=== PATIENT | male | born 1980 | race Caucasian/White ===

== ENCOUNTER 2019-12-30 17:13 | Inpatient (IN) | payer BC, OTHER ==
[2019-12-30] MEDS ORDERED: SODIUM CHLORIDE 0.9% 500 ML 500 ML IV STA (17:34)
[2019-12-30 18:03] LABS: Basophils % (A) 0 %; Eosinophils # (A) 0.1 k/uL (0-0.7); Eosinophils % (A) 1 %; HCT 45.9 % (39.0-53.0); HGB 15.3 gm/dL (13.0-17.5); Lymphocytes # (A) 1.3 k/uL (1.0-4.8); Lymphocytes % (A) 8 %; MCH 30.1 pg (25.0-35.0); MCHC 33.4 g/dL (31.0-37.0); MCV 90.1 fL (80.0-100.0); Mean Platelet Volume 6.6; Monocytes # (A) 0.6 k/uL (0-1.0); Monocytes % (A) 4 %; Neutrophils # (A) 14.3 k/uL (1.3-7.7); Neutrophils % (A) 87 %; Platelet Count 321 k/uL (150-450); RBC 5.09 m/uL (4.30-5.90); RDW 12.5 % (11.5-15.5); WBC 16.4 k/uL (3.8-10.6)
--- NOTE | 2019-12-30 18:10 | XR ---
EXAMINATION TYPE: XR KUB DATE OF EXAM: 12/30/2019 COMPARISON: NONE HISTORY: Abdominal pain TECHNIQUE: 2 views FINDINGS: 2 views upright were obtained. There are some large bowel fluid levels. There is no evidenc e of free air. Lung bases are clear. There are no pathologic calcifications over the kidneys. IMPRESSION: There are some large bowel fluid levels that could relate to diarrhea. No free air.
[2019-12-30 18:12] LABS: ALT 29 U/L (4-49); AST 29 U/L (17-59); African American GFR (CKD) >90 (>60 ml/min/1.73 sqM); Albumin 4.7 g/dL (3.5-5.0); Alkaline Phosphatase 98 U/L (38-126); Anion Gap 9 mmol/L; Blood Urea Nitrogen 15 mg/dL (9-20); Calcium 9.9 mg/dL (8.4-10.2); Carbon Dioxide 27 mmol/L (22-30); Chloride 104 mmol/L (98-107); Glucose 112 mg/dL (74-99); Non-African American GFR(CKD) >90 (>60 ml/min/1.73 sqM); Potassium 4.1 mmol/L (3.5-5.1); Sodium 140 mmol/L (137-145); Total Bilirubin 0.5 mg/dL (0.2-1.3); Total Protein 7.5 g/dL (6.3-8.2)
[2019-12-30 18:36] LABS: Amorphous Sediment,Urine Few /hpf; Appearance,Urine Cloudy (Clear); Bacteria,Urine Rare /hpf; Bilirubin,Urine Negative (Negative); Blood,Urine Trace (Negative); Color,Urine Yellow; Glucose,Urine (UA) Negative (Negative); Hyaline Casts,Urine 2 /lpf (0-2); Ketones,Urine 3+ (Negative); Leukocyte Esterase,Urine Trace (Negative); Mucus,Urine Many /hpf; Nitrite,Urine Negative (Negative); PH, Urine 5.5 (5.0-8.0); Protein,Urine 1+ (Negative); RBC,Urine 1 /hpf (0-5); Specific Gravity,Urine 1.037 (1.001-1.035); WBC,Urine 4 /hpf (0-5)
[2019-12-30] MEDS ORDERED: SODIUM CHLORIDE 0.9% 500 ML 500 ML IV ONE (18:53)
--- NOTE | 2019-12-30 18:55 | ED ---
General Adult HPI - General Chief complaint: Abdominal Pain Stated complaint: Abdominal pain Time Seen by Provider: 12/30/19 17:23 Source: patient, RN notes reviewed, old records reviewed Mode of arrival: ambulatory Limitations: no limitations - History of Present Illness Initial comments: 39-year-old male patient past history diverticulitis previously chief complaint of abdominal pain. Patient was is having pain in his left lower quadrant and right lower quadrant regions. Reports this feels similar to diabetic that is the past. States has been ongoing for the last couple of days. Reports nausea without emesis. Denies any other complaints. Systemic: Pt denies fatigue, fever/chills, rash. Pt denies weakness, night sweats, weight loss. Neuro: Pt denies headache, visual disturbances, syncope or pre-syncope. HEENT: Pt denies ocular discharge or irritation, otalgia, rhinorrhea, pharyngitis or notable lymphadenopathy. Cardiopulmonary: Pt denies chest pain, SOB, heart palpitations, dyspnea on exertion. Abdominal/GI: Pt denies n/v/d. : Pt denies dysuria, burning w/ urination, frequency/urgency. Denies new onset urinary or bowel incontinence. MSK: Pt denies myalgia, loss of strength or function in extremities. Neuro: Pt denies new onset weakness, paresthesias. - Related Data Home Medications Medication Instructions Recorded Confirmed Albuterol Sulfate [Ventolin HFA] 1 - 2 puff INHALATION RT-QID PRN 12/30/19 12/30/19 Allergies Allergy/AdvReac Type Severity Reaction Status Date / Time Penicillins Allergy Unknown Verified 12/30/19 20:21 Childhood Review of Systems ROS Statement: Those systems with pertinent positive or pertinent negative responses have been documented in the HPI. ROS Other: All systems not noted in ROS Statement are negative. Past Medical History Past Medical History: Asthma Additional Past Medical History / Comment(s): diverticulitis History of Any Multi-Drug Resistant Organisms: None Reported Past Surgical History: No Surgical Hx Reported Past Psychological History: No Psychological Hx Reported Smoking Status: Current every day smoker Past Alcohol Use History: None Reported Past Drug Use History: None Reported General Exam - General Exam Comments Initial Comments: Constitutional: NAD, AOX3, Pt has pleasant affect. HEENT: NC/AT, trachea midline, neck supple. External ears appear normal, without discharge. Mucous membranes moist. EOM intact. There is no scleral icterus. No pallor noted. Cardiopulmonary: RRR, no murmurs, rubs or gallops, no JVD noted. Lungs CTAB in anterior and posterior morris. No peripheral edema. Abdominal exam: Abdomen soft and mildly distended. Abdomen nontender to palpation left lower quadrant right lower quadrant region.. Bowel sounds active in LLQ. No hepatosplenomegaly. No ecchymosis Neuro: CN II-XII grossly intact. No nuchal rigidity. No raccon eyes, no larry sign. MSK: Full active ROM in upper and lower extremities Limitations: no limitations Course Vital Signs 12/30/19 17:16 Temperature 99.0 F Pulse Rate 105 H Respiratory 16 Rate Blood Pressure 150/90 O2 Sat by Pulse 99 Oximetry Medical Decision Making - Medical Decision Making 39-year-old male patient with a chief complaint of abdominal pain and right lower quadrant and left lower quadrant for the last 4 days. Patient also and are stable, afebrile. Physical exam a leukocytosis of 16. UA displayed +3 keto wilma patient reports that he has not been eating very much is suspect starvation ketosis. ED abdomen pelvis later mildly dilated large bowel. Possible constricting lesion of the sigmoid colon. She'll be admitted for further evaluation and GI consult. Case discussed with Dr. Echavarria. - Lab Data Result diagrams: 12/30/19 17:51 12/30/19 17:51 Lab Results 12/30/19 12/30/19 12/30/19 Range/Units 17:51 17:51 17:51 WBC 16.4 H (3.8-10.6) k/uL RBC 5.09 (4.30-5.90) m/uL Hgb 15.3 (13.0-17.5) gm/dL Hct 45.9 (39.0-53.0) % MCV 90.1 (80.0-100.0) fL MCH 30.1 (25.0-35.0) pg MCHC 33.4 (31.0-37.0) g/dL RDW 12.5 (11.5-15.5) % Plt Count 321 (150-450) k/uL Neutrophils % 87 % Lymphocytes % 8 % Monocytes % 4 % Eosinophils % 1 % Basophils % 0 % Neutrophils # 14.3 H (1.3-7.7) k/uL Lymphocytes # 1.3 (1.0-4.8) k/uL Monocytes # 0.6 (0-1.0) k/uL Eosinophils # 0.1 (0-0.7) k/uL Basophils # 0.0 (0-0.2) k/uL Sodium 140 (137-145) mmol/L Potassium 4.1 (3.5-5.1) mmol/L Chloride 104 (98-107) mmol/L Carbon Dioxide 27 (22-30) mmol/L Anion Gap 9 mmol/L BUN 15 (9-20) mg/dL Creatinine 0.88 (0.66-1.25) mg/dL Est GFR (CKD-EPI)AfAm >90 (>60 ml/min/1.73 sqM) Est GFR (CKD-EPI)NonAf >90 (>60 ml/min/1.73 sqM) Glucose 112 H (74-99) mg/dL Plasma Lactic Acid Dipesh 1.1 (0.7-2.0) mmol/L Calcium 9.9 (8.4-10.2) mg/dL Total Bilirubin 0.5 (0.2-1.3) mg/dL AST 29 (17-59) U/L ALT 29 (4-49) U/L Alkaline Phosphatase 98 (38-126) U/L Total Protein 7.5 (6.3-8.2) g/dL Albumin 4.7 (3.5-5.0) g/dL Lipase 38 (23-300) U/L Urine Color Urine Appearance (Clear) Urine pH (5.0-8.0) Ur Specific [place] (1.001-1.035) Urine Protein (Negative) Urine Glucose (UA) (Negative) Urine Ketones (Negative) Urine Blood (Negative) Urine Nitrite (Negative) Urine Bilirubin (Negative) Urine Urobilinogen (<2.0) mg/dL Ur Leukocyte Esterase (Negative) Urine RBC (0-5) /hpf Urine WBC (0-5) /hpf Amorphous Sediment (None) /hpf Urine Bacteria (None) /hpf Hyaline Casts (0-2) /lpf Urine Mucus (None) /hpf 12/30/19 Range/Units 18:27 WBC (3.8-10.6) k/uL RBC (4.30-5.90) m/uL Hgb (13.0-17.5) gm/dL Hct (39.0-53.0) % MCV (80.0-100.0) fL MCH (25.0-35.0) pg MCHC (31.0-37.0) g/dL RDW (11.5-15.5) % Plt Count (150-450) k/uL Neutrophils % % Lymphocytes % % Monocytes % % Eosinophils % % Basophils % % Neutrophils # (1.3-7.7) k/uL Lymphocytes # (1.0-4.8) k/uL Monocytes # (0-1.0) k/uL Eosinophils # (0-0.7) k/uL Basophils # (0-0.2) k/uL Sodium (137-145) mmol/L Potassium (3.5-5.1) mmol/L Chloride (98-107) mmol/L Carbon Dioxide (22-30) mmol/L Anion Gap mmol/L BUN (9-20) mg/dL Creatinine (0.66-1.25) mg/dL Est GFR (CKD-EPI)AfAm (>60 ml/min/1.73 sqM) Est GFR (CKD-EPI)NonAf (>60 ml/min/1.73 sqM) Glucose (74-99) mg/dL Plasma Lactic Acid Dipesh (0.7-2.0) mmol/L Calcium (8.4-10.2) mg/dL Total Bilirubin (0.2-1.3) mg/dL AST (17-59) U/L ALT (4-49) U/L Alkaline Phosphatase (38-126) U/L Total Protein (6.3-8.2) g/dL Albumin (3.5-5.0) g/dL Lipase (23-300) U/L Urine Color Yellow Urine Appearance Cloudy (Clear) Urine pH 5.5 (5.0-8.0) Ur Specific [place] 1.037 H (1.001-1.035) Urine Protein 1+ H (Negative) Urine Glucose (UA) Negative (Negative) Urine Ketones 3+ H (Negative) Urine Blood Trace H (Negative) Urine Nitrite Negative (Negative) Urine Bilirubin Negative (Negative) Urine Urobilinogen 3.0 (<2.0) mg/dL Ur Leukocyte Esterase Trace H (Negative) Urine RBC 1 (0-5) /hpf Urine WBC 4 (0-5) /hpf Amorphous Sediment Few H (None) /hpf Urine Bacteria Rare H (None) /hpf Hyaline Casts 2 (0-2) /lpf Urine Mucus Many H (None) /hpf Disposition Clinical Impression: Abdominal pain Disposition: ADMITTED IP TO THIS HOSP Condition: Fair Is patient prescribed a controlled substance at d/c from ED?: No Referrals: None,Stated [Primary Care Provider] - 1-2 days
--- NOTE | 2019-12-30 19:24 | CT ---
EXAMINATION TYPE: CT abdomen pelvis w con DATE OF EXAM: 12/30/2019 COMPARISON: None HISTORY: Abdominal pain and distention CT DLP: 1968.4 mGycm Automated exposure control for dose reduction was used. CONTRAST: Performed with IV Contrast, patient injected with 100 mL of Isovue 300. Lung bases are clear. There is no pleural effusion. Heart size is normal. There is some mild fatty infiltration of the liver. Gallbladder appears normal. Spleen and stomach ap pear intact. The pancreas appears normal. There is no adrenal mass. Kidneys show satisfactory contras t opacification. There is no hydronephrosis. Ureters are not dilated. There is no retroperitoneal lesli nopathy. There is broad-based fat-containing umbilical hernia that measures 3 cm. Appendix is posteri or and appears normal. The bladder distends smoothly. There is no inguinal hernia. There is no free f luid in the pelvis. There is some distention of the large bowel with gas and fecal material. There is some luminal narrowing in the mid sigmoid colon. It is not clear if this is peristalsis are related to a stricture or mass. This segment measures 5 cm. The large bowel proximal to this area is distende d with gas and fecal material. The small bowel is not dilated. Lumbar vertebra have normal alignment. Disc spaces are fairly normal. Posterior elements are intact. Bony pelvis is intact. IMPRESSION: Mildly dilated large bowel. Possible constricting lesion of the mid sigmoid colon. Sigmoidoscopy or c olonoscopy or barium enema exam recommended for further evaluation if clinically indicated. Umbilical hernia.
[2019-12-30] MEDS ORDERED: NALOXONE 0.4 MG/ML 1 ML VIAL IV PRN (20:38)
[2019-12-30 22:48] LABS: T4, Free (Free Thyroxine) 1.39 ng/dL (0.78-2.19)
[2019-12-30] MEDS ORDERED: IBUPROFEN 600 MG TAB PO PRN (23:01)
[2019-12-30] MEDS: ONDANSETRON 4 MG/2 ML VIAL IVP PRN (23:25)
--- NOTE | 2019-12-30 23:58 | HP ---
HISTORY AND PHYSICAL A 39-year-old white male with history of diverticulitis, complaining of abdominal pain, having pain in his left lower quadrant and right lower quadrant regions similar to he has had in the past with his diverticulosis except for the last couple days, reports nausea without emesis. Denies any fatigue, rashes, chills, COVID exposure. Fourteen- point review of systems otherwise negative. MEDICATIONS: Medicines at home include albuterol HFA. ALLERGIES: PENICILLIN. REVIEW OF SYSTEMS: Fourteen-point review of systems negative except for mentioned in HPI. PAST MEDICAL HISTORY: Asthma, diverticulitis. SOCIAL HISTORY: Current everyday smoker. No alcohol. No drugs. PHYSICAL EXAMINATION: VITAL SIGNS: Reviewed. CONSTITUTIONAL: In no acute distress. HEENT: Normocephalic, atraumatic. CARDIAC: Regular rate and rhythm. ABDOMEN: Soft, nontender. NEURO: Cranial nerves intact. MUSCULOSKELETAL: Range of motion full. VITAL SIGNS: Temperature 99, pulse rate 105, respiratory rate 16, blood pressure 150/90, O2 of 99. White count 16.4, unclear etiology. UA is 3+ ketones. Starvation ketosis likely. Mildly dilated large bowel constricting area of the sigmoid colon. GI consult possible surgical consult. MMODL / IJN: [id number] /
[2019-12-31] MEDS: ACETAMINOPHEN TAB 500 MG TAB PO PRN ×2 (08:19→22:42)
[2019-12-31] MEDS: ONDANSETRON 4 MG/2 ML VIAL IVP PRN ×2 (08:20→21:47)
[2019-12-31] MEDS: ALBUTEROL NEBULIZED 2.5 MG/3 ML INHALATION PRN ×2 (09:43→21:17)
[2019-12-31] MEDS ORDERED: PEG 3350-NA SULF,BICARB,CL/KCL 4,000 ML BOTTLE PO ONE (17:00)
--- NOTE | 2019-12-31 18:39 | CONS ---
CONSULTATION DATE OF DICTATION: 12/31/2019 REASON FOR CONSULTATION: Severe abdominal pain and constipation. HISTORY OF PRESENT ILLNESS: The patient is a 39-year-old pleasant white male who was admitted to the hospital with severe lower abdominal pain for the last 10 days' duration. The pain continued to progressively get worse, associated with some constipation, and he noted some abdominal distention. He denies any fever, chills or night sweats. He took a bottle of magnesium citrate last night before coming to the ER and he had several bowel movements this morning. In the ER, he did have a CT of the abdomen and pelvis done that showed some thickening in the sigmoid colon extending about 5 cm in length with mildly dilated large bowel loops suspicious for constricting lesion in the sigmoid colon, and hence a colonoscopy was recommended. The patient today is feeling much better after having about 4 bowel movements. His abdominal pain has improved. No nausea, no vomiting. No fever, chills, night sweats. He never had these symptoms in the past. He denies any rectal bleeding. PAST MEDICAL HISTORY: His past medical history is significant for asthma. MEDICATIONS AT HOME: Albuterol. ALLERGIES: PENICILLIN. SOCIAL HISTORY: Chronic smoker. No alcohol use. FAMILY HISTORY: Unremarkable. REVIEW OF SYSTEMS: CARDIOPULMONARY: No chest pain or shortness of breath. GENITOURINARY: No dysuria or hematuria. MUSCULOSKELETAL: Unremarkable. SKIN: Unremarkable. ENDOCRINE: Unremarkable. PSYCHIATRIC: Unremarkable. GI: As mentioned above. NEUROLOGY: Unremarkable. ENT/VISION: Unremarkable. CONSTITUTIONAL: No recent weight loss. No fever, chills, night sweats. PHYSICAL EXAMINATION: Appears comfortable. No apparent distress. Vital signs are stable. Blood pressure is 138/82, pulse rate 92, temperature 98.2. HEENT examination unremarkable. Conjunctivae pink. Sclerae anicteric. Oral cavity no lesions. NECK: No JVD or lymph node enlargement. CHEST: Clear to auscultation. HEART: Regular rate and rhythm. ABDOMEN: Soft. Bowel sounds are positive. It was slightly distended. Minimal tenderness in the left lower quadrant area. EXTREMITIES: No pedal edema. SKIN: No rashes. NEUROLOGIC: Alert and oriented x3. No focal deficits. LABS: WBC 16.4, hemoglobin 15.3, platelets normal. Basic metabolic panel is within normal limits. IMPRESSION: This is a patient who presented to the hospital with acute onset of lower abdominal pain for the last one week duration associated with constipation and abdominal distention. He took a bottle of magnesium citrate yesterday, and he is feeling much better after having several bowel movements. CT of the abdomen and pelvis did show some thickening of the sigmoid colon, and possibility of constricting lesion could not be excluded. RECOMMENDATIONS: 1. Clear liquid diet. 2. Will schedule the patient for a colonoscopy tomorrow. 3. Discussed with him risks, benefits and complications of the procedure, and he is agreeable to it. Thank you for this consultation. MMODL / IJN: [id number] /
--- NOTE | 2019-12-31 23:15 | PN ---
PROGRESS NOTE A 39-year-old white male found to have a stricture on a CAT scan of the abdomen. He was severely constipated, but he has had more bowel movement with less abdominal pain and swelling since his bowels have been moving today. His abdominal distention is a little bit less. CARDIOVASCULAR: S1, S2. GI: Soft. HEMATOLOGY: Negative Homans. He is going to get a colonoscopy tomorrow. Clear liquid diet. A bottle mag citrate yesterday, is feeling much better with bowel movements. We going to rule out a constriction lesion with a colonoscopy tomorrow then he can be discharged home. MMODL / IJN: [id number] /
[2020-01-01 06:13] LABS: Basophils % (A) 0 %; Eosinophils % (A) 0 %; HCT 40.1 % (39.0-53.0); HGB 13.2 gm/dL (13.0-17.5); Lymphocytes # (A) 1.4 k/uL (1.0-4.8); Lymphocytes % (A) 12 %; MCH 29.3 pg (25.0-35.0); MCV 88.7 fL (80.0-100.0); Mean Platelet Volume 6.5; Monocytes # (A) 0.7 k/uL (0-1.0); Monocytes % (A) 6 %; Neutrophils # (A) 9.5 k/uL (1.3-7.7); Neutrophils % (A) 81 %; Platelet Count 250 k/uL (150-450); RBC 4.52 m/uL (4.30-5.90); RDW 12.7 % (11.5-15.5); WBC 11.8 k/uL (3.8-10.6)
[2020-01-01 06:23] LABS: ALT 22 U/L (4-49); AST 21 U/L (17-59); African American GFR (CKD) >90 (>60 ml/min/1.73 sqM); Alkaline Phosphatase 91 U/L (38-126); Anion Gap 9 mmol/L; Blood Urea Nitrogen 12 mg/dL (9-20); Calcium 8.9 mg/dL (8.4-10.2); Carbon Dioxide 25 mmol/L (22-30); Chloride 101 mmol/L (98-107); Glucose 116 mg/dL (74-99); Non-African American GFR(CKD) >90 (>60 ml/min/1.73 sqM); Potassium 3.8 mmol/L (3.5-5.1); Sodium 135 mmol/L (137-145); Total Bilirubin 0.5 mg/dL (0.2-1.3); Total Protein 6.4 g/dL (6.3-8.2)
[2020-01-01] MEDS ORDERED: SODIUM CHLORIDE 0.9% 500 ML 500 ML IV ONE (12:19)
[2020-01-01] MEDS ORDERED: PROPOFOL 10 MG/ML 20 ML VIAL IV ONE (12:19)
--- NOTE | 2020-01-01 13:01 | P.PCN ---
Date of Procedure: 01/01/20 Procedure(s) Performed: BRIEF HISTORY: Patient is a 38-year-old pleasant white male admitted hospital with acute onset of lower abdominal pain for the last [address] of abdomen done that showed thickening of the sigmoid colon extending 5 cm in length with proximal colonic dilation suspicious for neoplasm. He is hence scheduled for colonoscopy today. PROCEDURE PERFORMED: Colonoscopy up to the transverse colon with biopsy. PREOPERATIVE DIAGNOSIS:. Lower abdominal pain and abnormal CAT scan of the abdomen showing thickening sigmoid colon of neoplasm. IV sedation per Anesthesia. PROCEDURE: After informed consent was obtained, the patient, was brought into the endoscopy unit. IV sedation was administered by Anesthesia under continuous monitoring. Digital rectal examination was normal. Initially the Olympus CF-160 flexible video colonoscope was then inserted in the rectum, gradually advanced into the transverse colon and further advancement was not possible because of extremely poor prep that was noted throughout the entire colon. Irrigation was performed. The visualized portions of the transverse colon and descending colon appeared normal. There was relative narrowing of the sigmoid colon extending from 25-30 cm from the anal verge with mucosal erythema and thickening of the mucosa but no polyps or masses identified. Biopsies were done from this area. The rectum appeared normal. Retroflexion was performed in the rectum and no lesions were seen. The patient tolerated the procedure well. IMPRESSION: Mild narrowing of the sigmoid colon extending from 25-30 cm from the anal verge with mild mucosal thickening and erythema suspicious for diverticular related colitis. No evidence of neoplasm. Status post biopsies Proximal colon dilation with large amount of stool and the scope could be advanced only up in the transverse colon and terminated because of poor prep RECOMMENDATIONS: Findings of this examination were discussed with the patient as well as his family. He'll be on a clear liquid diet today. He can be advanced as tolerated based on his symptoms. If he feels well can be discharged home today with outpatient follow-up in 2 weeks.
[2020-01-01] MEDS ORDERED: MORPHINE SULFATE 2 MG/ML SYRINGE IVP STA (15:47)
[2020-01-02 00:18] VITALS: RESP 16
--- NOTE | 2020-01-02 02:19 | PN ---
PROGRESS NOTE 39-year-old white male, abdominal pain, possible constriction lesion status post colonoscopy. Supposed to have some diverticulitis-like feeling. Cardiovascular S1-S2. Lungs clear. GI: Increased bowel sounds. Hematology: Negative Homans. ASSESSMENT: Diverticulitis, diverticulosis, stricture, biopsy is pending. Discharge home once diet is advanced. He is doing well. MMODL / IJN: [id number] /
[2020-01-02] MEDS ORDERED: SODIUM CHLORIDE 0.9% 1,000 ML IV SCH (11:30)
[2020-01-02 15:05] VITALS: BP 132/79; PULSE 79; TEMP 98.1
--- NOTE | 2020-01-02 15:06 | P.GSCN ---
History of Present Illness Consult date: 01/02/20 History of present illness: CHIEF COMPLAINT: Diverticulitis HISTORY OF PRESENT ILLNESS: The patient is a 39 year old male who reports at least 1 to 2 year history of diverticulitis. He previously was treated in the ER. He denies any primary care doctors or medical problems. "I am a big foodie!" He reports his diet caused his diverticulitis. He completed colonoscopy confirming sigmoid stricture likely related to diverticulitis. General surgery is consulted. This morning, he is passing flatus and having bowel movements. He reports feeling much better today. He is eager to go home. No reports of weight loss. No reports of fevers or chills. He denies any abdominal pain. PAST MEDICAL HISTORY: See list and reviewed PAST SURGICAL HISTORY: See list and reviewed MEDICATIONS: See list and reviewed ALLERGIES: See list and reviewed SOCIAL HISTORY: See list and reviewed FAMILY HISTORY: See list and reviewed REVIEW OF ORGAN SYSTEMS: CONSTITUTIONAL: No fevers or chills. No recent weight loss. EYES: Denies any trouble with vision. No glasses. HEENT: No difficulties with hearing. No nosebleeds. No difficulty swallowing. RESPIRATORY: Denies pneumonia. History of asthma. CARDIOVASCULAR: Denies any chest pain, palpitations, or recent heart attacks. GASTROINTESTINAL: Denies fatty food intolerance. Has change in bowel habits and gas bloat. GENITOURINARY: Denies any blood in urine or increased urinary frequency. NEUROLOGICAL: Denies any numbness or tingling along the distal extremities. No seizure disorders or headaches. MUSCULOSKELETAL: Denies any back pain, stiffness or joint arthritis. SKIN: No current skin cancer. No rash. PSYCHIATRIC: Denies current depression or suicidal thoughts. ENDOCRINE: Denies current thyroid disorders. Denies any blood sugar glucose intolerance. HEME/LYMPHATIC: Denies any lumps and bumps around the neck. No recent deep venous thrombosis. ALLERGY/IMMUNOLOGY: No immunoglobulin therapy. No immune deficiencies. BREAST: Denies current breast lumps, pain or nipple discharge. PHYSICAL EXAM: VITALS: Reviewed CONSTITUTIONAL: Well developed and in no acute distress. EYES: Conjuctivae without sclera icterus. Pupils are equally round and reactive to light. Extraocular movements grossly intact. HEAD, EARS, NOSE, THROAT: Moist buccal mucosa. Head is atraumatic, normocephalic. Hears conversational speech. No nasal drainage. NECK: Supple. No JV distention. No thyroidomegaly. RESPIRATORY: Non-labored respirations and equal bilateral excursions. No gross wheezes. CARDIOVASCULAR: Regular rate and rhythm. Extremities without moderate edema. Palpable 2+ radial pulses. ABDOMEN: Soft. Protuberant. No peritonitis. Nontender. Mild distention. LYMPH: No neck lymphadenopathy. No axillary lymphadenopathy. MUSCULOSKELETAL: No clubbing. No cyanosis. No edema. SKIN: Warm and well perfused with good skin turgor. NEUROLOGIC: Cranial nerves II through XII grossly intact. Sensation upper and extremities intact. No focal or lateralizing signs. PSYCH: Appropriate affect. Alert and oriented to person, place and time. Displays appropriate insight. CLINCAL LABS: Reviewed. WBC down from 16,000 to over 11,000. IMAGING: Independently reviewed CT of the abdomen and pelvis demonstrated fat- containing umbilical hernia. Large bowel diffusely distended with narrowing along the sigmoid colon. No intra-abdominal adenopathy. No free air. No small bowel distention. Features of sigmoid diverticulosis found. This is my independent interpretation. RADIOLOGY: Report reviewed. CT of the abdomen and pelvis report confirms fat- containing umbilical hernia 3 cm. Large bowel distention with fecal matter. Constricting lesion found in the mid sigmoid colon. REPORT: Colonoscopy reviewed IMPRESSION: Mild narrowing of the sigmoid colon extending from 25-30 cm from the anal verge with mild mucosal thickening and erythema suspicious for diverticular related colitis. No evidence of neoplasm. Status post biopsies Proximal colon dilation with large amount of stool and the scope could be advanced only up in the transverse colon and terminated because of poor prep ASSESSMENT: 1. Abnormal computed tomography scan 2. History of diverticulitis with sigmoid stricture PLAN: 1. No acute surgical intervention. Patient reports he is passing flatus and having bowel movements. He denies pain. 2. Outpatient follow-up with GI as pathology is pending. 3. Dietary changes for diverticulitis reviewed 4. Patient may be discharged once medically stable/cleared. Thank you for this kind consultation. Past Medical History Past Medical History: Asthma Additional Past Medical History / Comment(s): diverticulitis History of Any Multi-Drug Resistant Organisms: None Reported Past Surgical History: No Surgical Hx Reported Past Psychological History: No Psychological Hx Reported Smoking Status: Current every day smoker Past Alcohol Use History: None Reported Past Drug Use History: None Reported - Past Family History Mother Additional Family Medical History / Comment(s): diverticulitis, head injury, Father Family Medical History: No Reported History Medications and Allergies Home Medications Medication Instructions Recorded Confirmed Type Albuterol Sulfate [Ventolin HFA] 1 - 2 puff INHALATION RT-QID PRN 12/30/19 12/30/19 History Acetaminophen Tab [Tylenol] 500 mg PO Q6HR PRN #30 tab 01/02/20 Rx Ondansetron Odt [Zofran Odt] 4 mg PO Q8HR PRN #12 tab 01/02/20 Rx Allergies Allergy/AdvReac Type Severity Reaction Status Date / Time Penicillins Allergy Unknown Verified 12/30/19 20:21 Childhood Surgical - Exam Vital Signs Temp Pulse Resp BP Pulse Ox 99.0 F 105 H 16 150/90 99 12/30/19 17:16 12/30/19 17:16 12/30/19 17:16 12/30/19 17:16 12/30/19 17:16 Results - Labs 01/01/20 05:37 01/01/20 05:37 Assessment and Plan (1) Diverticulitis with obstruction Status: Acute Code(s): K57.92 - DVTRCLI OF INTEST, PART UNSP, W/O PERF OR ABSCESS W/O BLEED SNOMED Code(s): 015676943 (2) Asthma Status: Acute Code(s): J45.909 - UNSPECIFIED ASTHMA, UNCOMPLICATED SNOMED Code(s): 598827173 (3) Obesity (BMI 30.0-34.9) Status: Acute Code(s): E66.9 - OBESITY, UNSPECIFIED SNOMED Code(s): 402597368268586 (4) Abdominal distension Status: Acute Code(s): R14.0 - ABDOMINAL DISTENSION (GASEOUS) SNOMED Code(s): 22410130
--- NOTE | 2020-01-02 17:20 | PN ---
PROGRESS NOTE DATE OF SERVICE: 01/02/2020 The patient is a 39-year-old pleasant white male admitted to hospital with abdominal pain and severe constipation. CT scan showed thickening of the sigmoid colon. He underwent a colonoscopy yesterday that was incomplete up to the transverse colon because of poor prep. However, in the sigmoid colon, there was severe thickening of the mucosa with edema noted with relative narrowing but no obvious neoplasm. The proximal colon appeared significantly distended with large amount of solid and liquid stool and hence colonoscopy could not be completed. In any event, after the colonoscopy the patient developed severe abdominal distention and pain, had an NG tube placed and was kept n.p.o. The patient is feeling much better this morning. He is able to pass air. PHYSICAL EXAMINATION: He appears comfortable. No apparent distress. Vital signs stable. Blood pressure is 132/79, pulse rate 105, temperature 98.1. HEENT examination unremarkable. Conjunctivae pink. Sclerae anicteric. Oral cavity no lesions. NECK: No JVD. No lymph node enlargement. CHEST was clear to auscultation. HEART: Regular rate and rhythm. ABDOMEN is slightly distended. It is tympanic. Bowel sounds are positive. No organomegaly. EXTREMITIES: No pedal edema. SKIN: No rashes. NEUROLOGIC: Alert and oriented x3. No focal deficits. LABS: Done from today, WBC 11.8, hemoglobin 13.2, platelets normal. Basic metabolic panel is within normal limits. IMPRESSION: Sigmoid narrowing/stricture with mucosal thickening, but no evidence of malignancy. Patient developed abdominal distention post colonoscopy because of trapped air status post NG tube placement. He is doing much better today. He is able to pass flatus. RECOMMENDATIONS: 1. D/C NG tube. 2. Start him on clear liquids and advance as tolerated. 3. We will await surgical recommendations from Dr. Lundberg. 4. We will follow with you closely. Thank you for this consultation. MMODL / IJN: [id number] /
--- NOTE | 2020-01-04 10:26 | P.DS ---
Providers Date of admission: 01/02/20 08:34 Expected date of discharge: 01/02/20 Attending physician: Jackson Bal Consults: 12/30/19 20:38 Consult Physician Stat Consulting Provider: Sharron Roblero Consult Reason/Comments: abdominal pain possible lesion Do you want consulting provider notified?: Yes 01/01/20 15:48 Consult Physician Urgent Consulting Provider: Philly Lundberg Consult Reason/Comments: sigmoid narrowing visualized on colonoscopy Do you want consulting provider notified?: Yes Primary care physician: Stated None Hospital Course: Final diagnosis Diverticulitis diverticulosis Possible stricture Abdominal pain Discharge disposition Patient is being discharged in a stable condition with guarded prognosis to home. Patient will follow-up with Dr. roblero upon discharge. Patient also instructed to follow-up with surgery in the outpatient setting. Total time taken is 35 minutes. History of present illness This is an 39-year-old female who was recently admitted with abdominal pain with possible constriction and was being closely monitored. Patient was seen and evaluated by GI along with surgery with attempted colonoscopy showing some mild narrowing of the sigmoid colon and mucosal thickening suspicious for diverticular-related colitis and biopsies were obtained. Poor bowel prep was noted and scope could not be advanced and surgery was consulted. Patient's abdominal pain significantly improved and tolerating clear liquids and surgery evaluated the patient recommending outpatient follow-up within the next 2 weeks. Patient feeling much better and would like to go home. Currently no reports of chest pain, shortness of breath, or palpitations. Patient is afebrile. No reports of nausea or vomiting and patient is tolerating diet. On exam vital signs are stable. Temp is 98.1F, pulse is 79, respirations are 16, blood pressure is 132/79, oxygen saturation is 99% on room air. Cardio S1, S2 are muffled. Respiratory shows diminished breath sounds at the bases with no wheezing or rhonchi noted. Abdomen is soft and nontender. Nervous system shows no focal deficits. Please refer to medication reconciliation sheet for a list of medications. Patient Condition at Discharge: Fair Plan - Discharge Summary Discharge Rx Participant: No New Discharge Prescriptions: New Acetaminophen Tab [Tylenol] 500 mg PO Q6HR PRN #30 tab PRN Reason: Fever And/ Or Pain Ondansetron Odt [Zofran Odt] 4 mg PO Q8HR PRN #12 tab PRN Reason: Nausea Continue Albuterol Sulfate [Ventolin HFA] 1 - 2 puff INHALATION RT-QID PRN PRN Reason: Shortness Of Breath Discharge Medication List Albuterol Sulfate [Ventolin HFA] 1 - 2 puff INHALATION RT-QID PRN 12/30/19 [History] Acetaminophen Tab [Tylenol] 500 mg PO Q6HR PRN #30 tab 01/02/20 [Rx] Ondansetron Odt [Zofran Odt] 4 mg PO Q8HR PRN #12 tab 01/02/20 [Rx] Follow up Appointment(s)/Referral(s): Philly Lundberg MD [STAFF PHYSICIAN] - 1 Week (Pt to make appointment, office is currently closed ) Sharron Roblero MD [STAFF PHYSICIAN] - 2 Weeks (Pt to make appointment, office is currently closed ) None,Stated [Primary Care Provider] - 1-2 days (Office is currently closed, pt to make appointment ) Patient Instructions/Handouts: Abdominal Pain (ED) Activity/Diet/Wound Care/Special Instructions: continue with clear liquid diet for the next few days and advance slowly to full liquids until GI and surgical follow-up Follow-up with surgery in the outpatient setting Follow-up with primary care provider in the outpatient setting Follow-up with GI in 2 weeks for results Discharge Disposition: HOME SELF-CARE
== END 2020-01-02 16:25 | disposition home or self-care (01) | DRG 392 ==
LOC: EC 17:13 → 1SOBS 21:36 → OBSVTOIN 01-02 08:34
PROVIDERS: ADMIT Family Medicine; ATTEND Family Medicine
DX: K57.92 Diverticulitis of intestine, part unspecified, without perforation or abscess without bleeding (principal); D72.829 Elevated white blood cell count, unspecified; E66.9 Obesity, unspecified; Z68.33 Body mass index [BMI] 33.0-33.9, adult; F17.200 Nicotine dependence, unspecified, uncomplicated; F17.210 Nicotine dependence, cigarettes, uncomplicated; J45.909 Unspecified asthma, uncomplicated; K59.00 Constipation, unspecified
CPT/HCPCS: 36415; 45380; 74018; 74177; 80053; 81001; 83605; 83690; 84439; 84443; 85025; 88305; 94640; 96360; 96361; 99285

== ENCOUNTER 2021-04-19 21:14 | Inpatient (IN) | payer MEDICAID ==
[2021-04-19] MEDS ORDERED: SODIUM CHLORIDE 0.9% 1,000 ML IV STA (22:26)
[2021-04-19] MEDS ORDERED: HYDROmorphone 0.5 MG/0.5 ML SYRINGE IVP STA (22:26)
--- NOTE | 2021-04-19 22:28 | ED ---
General Adult HPI - General Chief complaint: Abdominal Pain Stated complaint: abdominal pain Time Seen by Provider: 04/19/21 22:10 Source: patient, RN notes reviewed Mode of arrival: ambulatory Limitations: no limitations - History of Present Illness Initial comments: 40-year-old male with a past medical history of diverticulitis presents to the emergency room for a chief complaint of abdominal pain. Patient stated he developed abdominal pain couple days ago that has progressively worsened. States he feels very distended. Patient states he has a history of diverticulitis and this feels similar. Patient denies fevers. Denies nausea vomiting.Patient has no other complaints at this time including shortness of breath, chest pain, nausea or vomiting, headache, or visual changes. - Related Data Home Medications Medication Instructions Recorded Confirmed Albuterol Sulfate [Ventolin HFA] 2 puff INHALATION RT-Q6H PRN 04/19/21 04/19/21 Umeclidinium Brm/Vilanterol Tr 1 puff INHALATION RT-DAILY PRN 04/19/21 04/19/21 [Anoro Ellipta 62.5-25 Mcg INH] Allergies Allergy/AdvReac Type Severity Reaction Status Date / Time Penicillins Allergy Unknown Verified 04/19/21 23:27 Childhood Review of Systems ROS Statement: Those systems with pertinent positive or pertinent negative responses have been documented in the HPI. ROS Other: All systems not noted in ROS Statement are negative. Past Medical History Past Medical History: Asthma Additional Past Medical History / Comment(s): diverticulitis History of Any Multi-Drug Resistant Organisms: None Reported Past Surgical History: No Surgical Hx Reported Past Psychological History: No Psychological Hx Reported Smoking Status: Former smoker Past Alcohol Use History: None Reported Past Drug Use History: None Reported - Past Family History Mother Additional Family Medical History / Comment(s): diverticulitis, head injury, Father Family Medical History: No Reported History General Exam Limitations: no limitations General appearance: alert, in no apparent distress Head exam: Present: atraumatic Eye exam: Present: normal appearance, PERRL, EOMI. Absent: scleral icterus, conjunctival injection ENT exam: Present: normal exam, mucous membranes moist Neck exam: Present: normal inspection, full ROM. Absent: tenderness Respiratory exam: Present: normal lung sounds bilaterally. Absent: respiratory distress, wheezes Cardiovascular Exam: Present: regular rate, normal rhythm, normal heart sounds GI/Abdominal exam: Present: distended, tenderness, normal bowel sounds. Absent: guarding, rebound Course Vital Signs 04/19/21 04/20/21 22:07 00:12 Temperature 98.0 F 98.5 F Pulse Rate 135 H 128 H Respiratory 20 18 Rate Blood Pressure 146/98 144/114 O2 Sat by Pulse 96 94 L Oximetry EKG Findings - EKG Comments: EKG Findings:: Sinus tachycardia, ventricular rate 128, [place] interval 144, QTc 440 Medical Decision Making - Medical Decision Making Patient presents tachycardic. Abdomen is distended and tender. CBC does show leukocytosis of 31.5 with a left shift. CMP reveals dehydration. Lactic acid of 3.6 noted. Could be related to dehydration as well, given fluids. A urinalysis unremarkable. CT abdomen and pelvis shows a dilated large bowel with fecal material and air. There appears to be a structure with similar appearance in the sigmoid colon. Tumor not excluded. Large bowel dilation increased compared to old exam. Attempted to call Dr. Lundberg who is cardiac sonographer several times and was unsuccessful. Contacted Dr. Pena who does accept the admission. - Lab Data Result diagrams: 04/19/21 22:31 04/19/21 22:31 Lab Results 04/19/21 04/19/21 04/19/21 Range/Units 22:31 22:31 22:31 WBC 31.5 H (3.8-10.6) k/uL RBC 6.01 H (4.30-5.90) m/uL Hgb 18.1 H (13.0-17.5) gm/dL Hct 53.7 H (39.0-53.0) % MCV 89.4 (80.0-100.0) fL MCH 30.2 (25.0-35.0) pg MCHC 33.8 (31.0-37.0) g/dL RDW 12.6 (11.5-15.5) % Plt Count 391 (150-450) k/uL MPV 7.1 Neutrophils % 91 % Lymphocytes % 2 % Monocytes % 5 % Eosinophils % 1 % Basophils % 0 % Neutrophils # 28.7 H (1.3-7.7) k/uL Lymphocytes # 0.8 L (1.0-4.8) k/uL Monocytes # 1.6 H (0-1.0) k/uL Eosinophils # 0.1 (0-0.7) k/uL Basophils # 0.1 (0-0.2) k/uL Sodium 138 (137-145) mmol/L Potassium 5.2 H (3.5-5.1) mmol/L Chloride 103 (98-107) mmol/L Carbon Dioxide 19 L (22-30) mmol/L Anion Gap 16 mmol/L BUN 29 H (9-20) mg/dL Creatinine 0.81 (0.66-1.25) mg/dL Est GFR (CKD-EPI)AfAm >90 (>60 ml/min/1.73 sqM) Est GFR (CKD-EPI)NonAf >90 (>60 ml/min/1.73 sqM) Glucose 225 H (74-99) mg/dL Plasma Lactic Acid Dipesh (0.7-2.0) mmol/L Calcium 10.7 H (8.4-10.2) mg/dL Total Bilirubin 0.8 (0.2-1.3) mg/dL AST 40 (17-59) U/L ALT 46 (4-49) U/L Alkaline Phosphatase 138 H (38-126) U/L Total Protein 8.4 H (6.3-8.2) g/dL Albumin 4.9 (3.5-5.0) g/dL Amylase 43 (30-110) U/L Lipase 23 (23-300) U/L Urine Color Dark Brown Urine Appearance Clear (Clear) Urine pH 5.5 (5.0-8.0) Ur Specific [place] >1.050 H (1.001-1.035) Urine Protein 2+ H (Negative) Urine Glucose (UA) Negative (Negative) Urine Ketones Trace H (Negative) Urine Blood Small H (Negative) Urine Nitrite Negative (Negative) Urine Bilirubin 1+ H (Negative) Urine Urobilinogen 8.0 (<2.0) mg/dL Ur Leukocyte Esterase Trace H (Negative) Urine RBC 9 H (0-5) /hpf Urine WBC 4 (0-5) /hpf Ur Squamous Epith Cells <1 (0-4) /hpf Calcium Oxalate Crystal Occasional H (None) /hpf Urine Bacteria Rare H (None) /hpf Urine Mucus Few H (None) /hpf Coronavirus (PCR) (Not Detectd) 04/19/21 04/19/21 Range/Units 22:31 22:31 WBC (3.8-10.6) k/uL RBC (4.30-5.90) m/uL Hgb (13.0-17.5) gm/dL Hct (39.0-53.0) % MCV (80.0-100.0) fL MCH (25.0-35.0) pg MCHC (31.0-37.0) g/dL RDW (11.5-15.5) % Plt Count (150-450) k/uL MPV Neutrophils % % Lymphocytes % % Monocytes % % Eosinophils % % Basophils % % Neutrophils # (1.3-7.7) k/uL Lymphocytes # (1.0-4.8) k/uL Monocytes # (0-1.0) k/uL Eosinophils # (0-0.7) k/uL Basophils # (0-0.2) k/uL Sodium (137-145) mmol/L Potassium (3.5-5.1) mmol/L Chloride (98-107) mmol/L Carbon Dioxide (22-30) mmol/L Anion Gap mmol/L BUN (9-20) mg/dL Creatinine (0.66-1.25) mg/dL Est GFR (CKD-EPI)AfAm (>60 ml/min/1.73 sqM) Est GFR (CKD-EPI)NonAf (>60 ml/min/1.73 sqM) Glucose (74-99) mg/dL Plasma Lactic Acid Dipesh 3.6 H* (0.7-2.0) mmol/L Calcium (8.4-10.2) mg/dL Total Bilirubin (0.2-1.3) mg/dL AST (17-59) U/L ALT (4-49) U/L Alkaline Phosphatase (38-126) U/L Total Protein (6.3-8.2) g/dL Albumin (3.5-5.0) g/dL Amylase (30-110) U/L Lipase (23-300) U/L Urine Color Urine Appearance (Clear) Urine pH (5.0-8.0) Ur Specific [place] (1.001-1.035) Urine Protein (Negative) Urine Glucose (UA) (Negative) Urine Ketones (Negative) Urine Blood (Negative) Urine Nitrite (Negative) Urine Bilirubin (Negative) Urine Urobilinogen (<2.0) mg/dL Ur Leukocyte Esterase (Negative) Urine RBC (0-5) /hpf Urine WBC (0-5) /hpf Ur Squamous Epith Cells (0-4) /hpf Calcium Oxalate Crystal (None) /hpf Urine Bacteria (None) /hpf Urine Mucus (None) /hpf Coronavirus (PCR) Not Detected (Not Detectd) Disposition Clinical Impression: Abdominal pain, Abdominal distension, Leukocytosis, Lactic acidosis Narrative: possible obstruction Disposition: ADMITTED IP TO THIS HOSP Is patient prescribed a controlled substance at d/c from ED?: No Referrals: None,Stated [Primary Care Provider] - 1-2 days Time of Disposition: 02:36
[2021-04-19 23:18] LABS: Basophils # (A) 0.1 k/uL (0-0.2); Basophils % (A) 0 %; Eosinophils # (A) 0.1 k/uL (0-0.7); Eosinophils % (A) 1 %; HCT 53.7 % (39.0-53.0); HGB 18.1 gm/dL (13.0-17.5); Lymphocytes # (A) 0.8 k/uL (1.0-4.8); Lymphocytes % (A) 2 %; MCH 30.2 pg (25.0-35.0); MCHC 33.8 g/dL (31.0-37.0); MCV 89.4 fL (80.0-100.0); Mean Platelet Volume 7.1; Monocytes # (A) 1.6 k/uL (0-1.0); Monocytes % (A) 5 %; Neutrophils # (A) 28.7 k/uL (1.3-7.7); Neutrophils % (A) 91 %; Platelet Count 391 k/uL (150-450); RBC 6.01 m/uL (4.30-5.90); RDW 12.6 % (11.5-15.5); WBC 31.5 k/uL (3.8-10.6)
--- NOTE | 2021-04-19 23:39 | CT ---
EXAMINATION TYPE: CT abdomen pelvis w con DATE OF EXAM: 04/19/2021 COMPARISON: 12/30/2019 HISTORY: abd pain. pt states diverticulitis flare up CT DLP: 2263 mGycm Automated exposure control for dose reduction was used. CONTRAST: Performed with IV Contrast, patient injected with 100 mL of Isovue 300. Images obtained from the diaphragm to the floor the pelvis with IV contrast. Lung bases are clear of infiltrate. There is no pleural effusion. Heart size is fairly normal. There is no pericardial effusion. There is diffuse fatty infiltration of the liver. Stomach is distended wi th fluid. Spleen is intact. There is no pancreatic mass. Gallbladder appears normal. The bile ducts a re not dilated. There is no adrenal mass. Kidneys show satisfactory contrast opacification. There is no hydronephrosi s. Ureters are not dilated. There is no retroperitoneal adenopathy. Bladder distends smoothly. There is no inguinal hernia. There is no free fluid in the pelvis. There are dilated gas and fecal filled l oops of large bowel throughout the abdomen. Transition point is the mid sigmoid colon. There is 6 cm segment of luminal narrowing of the mid sigmoid colon. There are a few sigmoid diverticula. Appendix is posterior and appears normal. There is 5 cm umbilical hernia that contains fat. There is no mesenteric edema. There is no ascites or free air. Lumbar vertebra have normal alignment. There is no compression fracture. Bony pelvis is intact. Hip j oints are intact. IMPRESSION: Dilated large bowel with fecal material and air. There is segment of mid sigmoid colon that appears t o be a stricture and is also same appearance as the scan of 12/30/2019. There are some sigmoid diverti cula. Tumor not excluded. Large bowel dilation increased compared to old exam. There are a few sigmoi d diverticula. I do not suspect diverticulitis.
[2021-04-20 00:09] LABS: ALT 46 U/L (4-49); AST 40 U/L (17-59); African American GFR (CKD) >90 (>60 ml/min/1.73 sqM); Albumin 4.9 g/dL (3.5-5.0); Alkaline Phosphatase 138 U/L (38-126); Amylase 43 U/L (30-110); Anion Gap 16 mmol/L; Blood Urea Nitrogen 29 mg/dL (9-20); Calcium 10.7 mg/dL (8.4-10.2); Carbon Dioxide 19 mmol/L (22-30); Chloride 103 mmol/L (98-107); Glucose 225 mg/dL (74-99); Lipase 23 U/L (23-300); Non-African American GFR(CKD) >90 (>60 ml/min/1.73 sqM); Potassium 5.2 mmol/L (3.5-5.1); Sodium 138 mmol/L (137-145); Total Bilirubin 0.8 mg/dL (0.2-1.3); Total Protein 8.4 g/dL (6.3-8.2)
[2021-04-20 00:17] LABS: Appearance,Urine Clear (Clear); Bacteria,Urine Rare /hpf; Bilirubin,Urine 1+ (Negative); Blood,Urine Small (Negative); Calcium Oxalate Crystals,Urine Occasional /hpf; Color,Urine Dark Brown; Glucose,Urine (UA) Negative (Negative); Ketones,Urine Trace (Negative); Leukocyte Esterase,Urine Trace (Negative); Mucus,Urine Few /hpf; Nitrite,Urine Negative (Negative); PH, Urine 5.5 (5.0-8.0); Protein,Urine 2+ (Negative); RBC,Urine 9 /hpf (0-5); Squamous Epithelial Cell,Urine <1 /hpf (0-4); WBC,Urine 4 /hpf (0-5)
[2021-04-20] MEDS ORDERED: HYDROmorphone 0.5 MG/0.5 ML SYRINGE IVP STA (00:17)
[2021-04-20 00:25] LABS: Specific Gravity,Urine >1.050 (1.001-1.035)
[2021-04-20] MEDS ORDERED: PIPERACILLIN-TAZOBACTAM 3.375 GM in SODIUM CHLORIDE 0.9% 100 ML IVPB STA (01:31)
[2021-04-20] MEDS ORDERED: HYDROmorphone 0.5 MG/0.5 ML SYRINGE IVP PRN (02:39)
[2021-04-20] MEDS ORDERED: ONDANSETRON 4 MG/2 ML VIAL IVP PRN (02:39)
[2021-04-20] MEDS ORDERED: NALOXONE 0.4 MG/ML 1 ML VIAL IV PRN (02:39)
[2021-04-20] MEDS ORDERED: SODIUM CHLORIDE 0.9% 1,000 ML IV ONE ×3 (04:32→04:36)
[2021-04-20] MEDS ORDERED: LORazepam 2 MG/ML INJ IV STA (04:32)
[2021-04-20] MEDS ORDERED: LORazepam 2 MG/ML INJ IV PRN (04:32)
[2021-04-20] MEDS ORDERED: HYDROmorphone 1 MG/ML 1 ML SYRINGE IVP PRN (04:32)
[2021-04-20] MEDS ORDERED: HYDROmorphone 1 MG/ML 1 ML SYRINGE IVP STA ×2 (04:32→04:33)
[2021-04-20] MEDS ORDERED: SODIUM CHLORIDE 0.9% 2,000 ML IV ONE ×2 (04:32→19:50)
--- NOTE | 2021-04-20 05:22 | XR ---
EXAMINATION TYPE: XR chest 1V portable DATE OF EXAM: 04/20/2021 COMPARISON: NONE HISTORY: Short of breath TECHNIQUE: Single view FINDINGS: Heart and mediastinum are normal. There is nasogastric tube in the stomach. There is slight blunting left costophrenic angle. There are no hilar masses. There are chest leads IMPRESSION: Minimal pleural reaction or subsegmental atelectasis left lung base. Normal heart.
[2021-04-20 06:13] LABS: VBG PH 7.3 (7.31-7.41)
[2021-04-20 06:54] LABS: AST 39 U/L (17-59); African American GFR (CKD) >90 (>60 ml/min/1.73 sqM); Albumin 4.2 g/dL (3.5-5.0); Albumin/Globulin Ratio 1.4; Alkaline Phosphatase 120 U/L (38-126); Anion Gap 19 mmol/L; Blood Urea Nitrogen 37 mg/dL (9-20); Calcium 9.8 mg/dL (8.4-10.2); Carbon Dioxide 14 mmol/L (22-30); Chloride 106 mmol/L (98-107); Creatine Kinase 50 U/L (55-170); Glucose 230 mg/dL (74-99); Non-African American GFR(CKD) 83 (>60 ml/min/1.73 sqM); Potassium 4.4 mmol/L (3.5-5.1); Sodium 139 mmol/L (137-145); Total Bilirubin 0.8 mg/dL (0.2-1.3); Total Protein 7.2 g/dL (6.3-8.2)
[2021-04-20 06:55] LABS: Basophils # (A) 0.2 k/uL (0-0.2); Basophils % (A) 0 %; Eosinophils % (A) 0 %; HCT 54.6 % (39.0-53.0); HGB 17.9 gm/dL (13.0-17.5); Lymphocytes # (A) 0.4 k/uL (1.0-4.8); Lymphocytes % (A) 1 %; MCH 29.6 pg (25.0-35.0); MCHC 32.8 g/dL (31.0-37.0); MCV 90.3 fL (80.0-100.0); Mean Platelet Volume 7.2; Monocytes # (A) 3.4 k/uL (0-1.0); Monocytes % (A) 10 %; Neutrophils # (A) 29.8 k/uL (1.3-7.7); Neutrophils % (A) 87 %; Platelet Count 467 k/uL (150-450); RBC 6.05 m/uL (4.30-5.90); RDW 13.5 % (11.5-15.5); WBC 34.3 k/uL (3.8-10.6)
[2021-04-20 07:09] LABS: ALT 49 U/L (4-49)
[2021-04-20] MEDS: SODIUM CHLORIDE 0.9% 1,000 ML IV SCH ×4 (07:59→16:59)
--- NOTE | 2021-04-20 10:05 | P.GSHP ---
History of Present Illness H&P Date: 04/20/21 CHIEF COMPLAINT: Abdominal pain HISTORY OF PRESENT ILLNESS: This is a 40-year-old male who presented to the emergency room with complaints of abdominal distention and pain. He reports symptoms started suddenly yesterday morning. He complains of abdominal pain across the mid abdomen. And significant amount of bloating. He does report that he has been having bowel movements and flatus. However, he has been constipated and did take mag citrate. I'll he did have one episode of vomiting at home. He denies any prior history of bowel obstruction he does have a history of diverticulitis. His last colonoscopy was in December 2019 it did have a poor prep and there was mild narrowing of the sigmoid colon extending from 25-30 cm from the anal verge with mild mucosal thickening and erythema suspicious for diverticular related colitis. Biopsies taken which showed either a previous ulcer or injury to the sigmoid colon. Patient has been tachycardic with elevated WBC and lactic acid. Computed tomography scan had shown dilated large bowel and stricture in the mid sigmoid colon. He has NG tube in place and had 850 ML out of dark brown material. Patient did have multiple fluid boluses. No prior abdominal surgeries. No family history of colon cancer. PAST MEDICAL HISTORY: Diverticulitis, asthma PAST SURGICAL HISTORY: None MEDICATIONS: See list. ALLERGIES: See list. SOCIAL HISTORY: No illicit drug use. REVIEW OF SYSTEMS: CONSTITUTIONAL: Denies fever or chills. HEENT: Denies blurred vision, vision changes, or eye pain. Denies hemoptysis CARDIOVASCULAR: Denies chest pain or pressure. RESPIRATORY: No shortness of breath. GASTROINTESTINAL: See HPI for pertinent findings HEMATOLOGIC: Denies bleeding disorders. GENITOURINARY: Denies any blood in urine or increased urinary frequency. SKIN: Denies pruitis. Denies rash. PHYSICAL EXAM: VITAL SIGNS: Reviewed GENERAL: Well-developed in no acute distress. HEENT: No sclera icterus. Extraocular movements grossly intact. Moist buccal mucosa. Head is atraumatic, normocephalic. No nasal drainage. ABDOMEN: Distended minimal tenderness with palpation across the mid abdomen NEUROLOGIC: Alert and oriented. Cranial nerves II through XII grossly intact. LABORATORY DATA: WBC up at 34.3 hemoglobin 17.9 platelets 467 sodium 139 potassium is 4.4 creatinine 1.09 glucose 230 lactic acid elevated at 6.1 IMAGING: Chest x-ray minimal pleural reaction or subsegmental atelectasis left lung base. Computed tomography scan abdomen dilated large bowel with fecal material in air. There is segment of mid sigmoid colon that appears to be a stricture and also same appearance as the scan of 12/30/2019. There are some sigmoid diverticula. Tumor not excluded. Large bowel dilation increased compared to old exam. There are a few sigmoid diverticula. I do not suspect diverticulitis. ASSESSMENT: 1. Abdominal pain with abdominal distention with evidence of bowel obstruction possibly due to mid sigmoid colon stricture 2. History of diverticulitis PLAN: -Patient is tentatively scheduled for sigmoid colectomy today with Dr. Pena -Keep patient nothing by mouth -Continue NG tube for decompression -Continue IV fluids -Continue IV antibiotics -Continue pain medication as needed -Consult medical service for medical management Physician Water Quality Control Engineer note has been reviewed by physician. Signing provider agrees with the documented findings, assessment, and plan of care. Past Medical History Past Medical History: Asthma Additional Past Medical History / Comment(s): diverticulitis History of Any Multi-Drug Resistant Organisms: None Reported Past Surgical History: No Surgical Hx Reported Past Psychological History: No Psychological Hx Reported Smoking Status: Former smoker Past Alcohol Use History: None Reported Past Drug Use History: None Reported - Past Family History Mother Additional Family Medical History / Comment(s): diverticulitis, head injury, Father Family Medical History: No Reported History Medications and Allergies Home Medications Medication Instructions Recorded Confirmed Type Albuterol Sulfate [Ventolin HFA] 2 puff INHALATION RT-Q6H PRN 04/19/21 04/19/21 History Umeclidinium Brm/Vilanterol Tr 1 puff INHALATION RT-DAILY PRN 04/19/21 04/19/21 History [Anoro Ellipta 62.5-25 Mcg INH] Allergies Allergy/AdvReac Type Severity Reaction Status Date / Time Penicillins Allergy Unknown Verified 04/19/21 23:27 Childhood Surgical - Exam Vital Signs Temp Pulse Resp BP Pulse Ox 98.0 F 135 H 20 146/98 96 04/19/21 22:07 04/19/21 22:07 04/19/21 22:07 04/19/21 22:07 04/19/21 22:07 Results - Labs 04/20/21 05:21 04/20/21 05:21 Abnormal Lab Results - Last 24 Hours (Table) 04/19/21 04/19/21 04/19/21 Range/Units 22:31 22:31 22:31 WBC 31.5 H (3.8-10.6) k/uL RBC 6.01 H (4.30-5.90) m/uL Hgb 18.1 H (13.0-17.5) gm/dL Hct 53.7 H (39.0-53.0) % Plt Count (150-450) k/uL Neutrophils # 28.7 H (1.3-7.7) k/uL Lymphocytes # 0.8 L (1.0-4.8) k/uL Monocytes # 1.6 H (0-1.0) k/uL VBG pH (7.31-7.41) VBG pCO2 (37-51) mmHg VBG HCO3 (24-28) mmol/L Potassium 5.2 H (3.5-5.1) mmol/L Carbon Dioxide 19 L (22-30) mmol/L BUN 29 H (9-20) mg/dL Glucose 225 H (74-99) mg/dL Plasma Lactic Acid Dipesh (0.7-2.0) mmol/L Calcium 10.7 H (8.4-10.2) mg/dL Alkaline Phosphatase 138 H (38-126) U/L Creatine Kinase (55-170) U/L Total Protein 8.4 H (6.3-8.2) g/dL Ur Specific [place] >1.050 H (1.001-1.035) Urine Protein 2+ H (Negative) Urine Ketones Trace H (Negative) Urine Blood Small H (Negative) Urine Bilirubin 1+ H (Negative) Ur Leukocyte Esterase Trace H (Negative) Urine RBC 9 H (0-5) /hpf Calcium Oxalate Crystal Occasional H (None) /hpf Urine Bacteria Rare H (None) /hpf Urine Mucus Few H (None) /hpf 04/19/21 04/20/21 04/20/21 Range/Units 22:31 03:08 05:21 WBC 34.3 H (3.8-10.6) k/uL RBC 6.05 H (4.30-5.90) m/uL Hgb 17.9 H (13.0-17.5) gm/dL Hct 54.6 H (39.0-53.0) % Plt Count 467 H (150-450) k/uL Neutrophils # (1.3-7.7) k/uL Lymphocytes # (1.0-4.8) k/uL Monocytes # (0-1.0) k/uL VBG pH (7.31-7.41) VBG pCO2 (37-51) mmHg VBG HCO3 (24-28) mmol/L Potassium (3.5-5.1) mmol/L Carbon Dioxide (22-30) mmol/L BUN (9-20) mg/dL Glucose (74-99) mg/dL Plasma Lactic Acid Dipesh 3.6 H* 4.4 H* (0.7-2.0) mmol/L Calcium (8.4-10.2) mg/dL Alkaline Phosphatase (38-126) U/L Creatine Kinase (55-170) U/L Total Protein (6.3-8.2) g/dL Ur Specific [place] (1.001-1.035) Urine Protein (Negative) Urine Ketones (Negative) Urine Blood (Negative) Urine Bilirubin (Negative) Ur Leukocyte Esterase (Negative) Urine RBC (0-5) /hpf Calcium Oxalate Crystal (None) /hpf Urine Bacteria (None) /hpf Urine Mucus (None) /hpf 04/20/21 04/20/21 04/20/21 Range/Units 05:21 05:21 05:21 WBC (3.8-10.6) k/uL RBC (4.30-5.90) m/uL Hgb (13.0-17.5) gm/dL Hct (39.0-53.0) % Plt Count (150-450) k/uL Neutrophils # (1.3-7.7) k/uL Lymphocytes # (1.0-4.8) k/uL Monocytes # (0-1.0) k/uL VBG pH 7.30 L (7.31-7.41) VBG pCO2 35 L (37-51) mmHg VBG HCO3 17 L (24-28) mmol/L Potassium (3.5-5.1) mmol/L Carbon Dioxide 14 L (22-30) mmol/L BUN 37 H (9-20) mg/dL Glucose 230 H (74-99) mg/dL Plasma Lactic Acid Dipesh 6.1 H* (0.7-2.0) mmol/L Calcium (8.4-10.2) mg/dL Alkaline Phosphatase (38-126) U/L Creatine Kinase 50 L (55-170) U/L Total Protein (6.3-8.2) g/dL Ur Specific [place] (1.001-1.035) Urine Protein (Negative) Urine Ketones (Negative) Urine Blood (Negative) Urine Bilirubin (Negative) Ur Leukocyte Esterase (Negative) Urine RBC (0-5) /hpf Calcium Oxalate Crystal (None) /hpf Urine Bacteria (None) /hpf Urine Mucus (None) /hpf Diabetes panel 04/19/21 04/20/21 Range/Units 22:31 05:21 Sodium 138 139 (137-145) mmol/L Potassium 5.2 H 4.4 (3.5-5.1) mmol/L Chloride 103 106 (98-107) mmol/L Carbon Dioxide 19 L 14 L (22-30) mmol/L BUN 29 H 37 H (9-20) mg/dL Creatinine 0.81 1.09 (0.66-1.25) mg/dL Glucose 225 H 230 H (74-99) mg/dL Calcium 10.7 H 9.8 (8.4-10.2) mg/dL AST 40 39 (17-59) U/L ALT 46 49 (4-49) U/L Alkaline Phosphatase 138 H 120 (38-126) U/L Total Protein 8.4 H 7.2 (6.3-8.2) g/dL Albumin 4.9 4.2 (3.5-5.0) g/dL Calcium panel 04/19/21 04/20/21 Range/Units 22:31 05:21 Calcium 10.7 H 9.8 (8.4-10.2) mg/dL Albumin 4.9 4.2 (3.5-5.0) g/dL Pituitary panel 04/19/21 04/20/21 Range/Units 22:31 05:21 Sodium 138 139 (137-145) mmol/L Potassium 5.2 H 4.4 (3.5-5.1) mmol/L Chloride 103 106 (98-107) mmol/L Carbon Dioxide 19 L 14 L (22-30) mmol/L BUN 29 H 37 H (9-20) mg/dL Creatinine 0.81 1.09 (0.66-1.25) mg/dL Glucose 225 H 230 H (74-99) mg/dL Calcium 10.7 H 9.8 (8.4-10.2) mg/dL Adrenal panel 04/19/21 04/20/21 Range/Units 22:31 05:21 Sodium 138 139 (137-145) mmol/L Potassium 5.2 H 4.4 (3.5-5.1) mmol/L Chloride 103 106 (98-107) mmol/L Carbon Dioxide 19 L 14 L (22-30) mmol/L BUN 29 H 37 H (9-20) mg/dL Creatinine 0.81 1.09 (0.66-1.25) mg/dL Glucose 225 H 230 H (74-99) mg/dL Calcium 10.7 H 9.8 (8.4-10.2) mg/dL Total Bilirubin 0.8 0.8 (0.2-1.3) mg/dL AST 40 39 (17-59) U/L ALT 46 49 (4-49) U/L Alkaline Phosphatase 138 H 120 (38-126) U/L Total Protein 8.4 H 7.2 (6.3-8.2) g/dL Albumin 4.9 4.2 (3.5-5.0) g/dL
[2021-04-20] MEDS: HYDROmorphone 1 MG/ML 1 ML SYRINGE IVP PRN ×4 (10:12→23:06)
[2021-04-20] MEDS: PIPERACILLIN-TAZOBACTAM 3.375 GM in SODIUM CHLORIDE 0.9% 100 ML IVPB SCH (11:32)
[2021-04-20 14:11] LABS: Band Neutrophils % 12 %; Monocytes # (M) 4.12 k/uL (0-1.0); Neutrophils % (M) 76 %; Nucleated Red Blood Cells 0 /100 WBC (0-0); Total Cells Counted 100
[2021-04-20 16:36] LABS: Glucose,Whole Blood 197 mg/dL (75-99)
[2021-04-20] MEDS ORDERED: IV FLUID CONTINUATION 1,000 ML IV ONE (16:45)
[2021-04-20] MEDS ORDERED: MIDAZOLAM 2 MG/2 ML VIAL ONE (16:54)
[2021-04-20] MEDS ORDERED: SUCCINYLCHOLINE CHLORIDE 100 MG/5 ML SYR IV ONE (16:54)
[2021-04-20] MEDS ORDERED: PROPOFOL 10 MG/ML 20 ML VIAL IV ONE (16:54)
[2021-04-20] MEDS ORDERED: PHENYLEPHRINE-0.9% NACL SYG 1,000 MCG/10 ML SYRINGE ONE (16:54)
[2021-04-20] MEDS ORDERED: ROCURONIUM 10 MG/ML (5 ML VIAL) IV ONE (16:54)
[2021-04-20] MEDS ORDERED: LIDOCAINE 1% INJ 10MG/ML (20 ML MDV) ONE (16:54)
[2021-04-20] MEDS ORDERED: fentaNYL (PF) 50 MCG/ML 2 ML AMP ONE (16:54)
[2021-04-20] MEDS ORDERED: LACTATED RINGERS 1,000 ML IV ONE (17:39)
--- NOTE | 2021-04-20 18:34 | P.OP ---
Date of Procedure: 04/20/21 Preoperative Diagnosis: Sigmoid colon obstruction Postoperative Diagnosis: Sigmoid colon obstruction Massive colonic and small bowel dilatation Procedure(s) Performed: Decompression of colon and small bowel Diverting transverse loop colostomy Anesthesia: MALCOLM Surgeon: Rodrigo Pena Estimated Blood Loss (ml): 25 Pathology: none sent Condition: stable Disposition: PACU Description of Procedure: The patient's placed on the operative table in the supine position. He received general endotracheal anesthesia. His abdomen was massively distended. A midline skin incision was made. There was significant small bowel and colonic distention. The small bowel was decompressed first. The enterotomy was closed using a TX 60 stapler. Next the transverse colon was found. He was massively dilated. A suitable spot for a loop colostomy was found. And then the decompressive colostomy was treated. The colon was decompressed and the enterotomy is closed using the TX 60 stapler. The patient appeared to have a colonic obstruction at the sigmoid colon. Due to the massive distention of the bowel was decided not to perform resection. The colostomy brought up in the left upper quadrant. The abdomen. The fascia was closed with looped #1 PDS suture. Skin was closed irineo. The colostomy then matured with 3-0 Vicryl suture. Patient tolerated the procedure well and was left intubated and sent to the ICU in stable condition.
[2021-04-20 18:52] LABS: Glucose,Whole Blood 128 mg/dL (75-99)
[2021-04-20] MEDS ORDERED: propofoL 100 ML IV ONE (18:58)
--- NOTE | 2021-04-20 19:46 | P.CNPUL ---
History of Present Illness Consult date: 04/20/21 Chief complaint: Bowel obstruction History of present illness: this is a 40-year-old male patientpresented to the hospital because of abdominal pain and distention. The patient had [id number] amount of bloating. He has been constipated and he was taken max citrate on outpatient basis. He had a bout of emesis prior to him coming to the hospital. His last colonoscopy was in December 2019 and was essentially a poor prep and there was some mild narrowing of the sigmoid colon extending from 30 cm from the anal verge with mild mucosal thi ckening and erythema suspicious for diverticular related complications.The patient had a CAT scan of the abdomen that showed dilated small and large bowel. An NG tube was inserted. The patient was quite ill, he had a leukocytosis and the patient also had lactic acidosis with a high as lactic acid level of 6.1. At that point, the patient was taken to the operating room and the patient underwent decompression of the colon and small bowel with a diverticular source loop colostomy. Postop, the patient was brought into the intensive care unit.intraoperatively, the patient was found to have significant small bowel and colonic distention. The small bowel was decompressed first. The enterotomy was closed using a TX 60 stapler. Next the transverse colon was found. He was massively dilated. A suitable spot for a loop colostomy was found. And then the decompressive colostomy was treated. The colon was decompressed and the enterotomy is closed using the TX 60 stapler. The patient appeared to have a colonic obstruction at the sigmoid colon. Due to the massive distention of the bowel was decided not to perform resection. The colostomy brought up in the left upper quadrant. The patient is currently intubated on a mechanical ventilator. In the ICU, the patient was started on propofol for sedation. Currently is on 70 mcg/kg per minute of propofol infusion. At the same time, th e patient is sitting the left for pain control. NG tube is in place and output is minimal at this point in time. Surgical wound site is dry clean and intact. Abdomen remains somewhat distended. Bowel sounds are absent. He is on a mechanical ventilator. I have an assist-control mode with a rate of 24, tidal volume of 500, FiO2 100% and PEEP of 5. Chest x-ray showed smaller lung volumes and the patient had an orotracheal tube in place. A triple catheter was also inserted through the left IJ. OG tube is in a good location. Patient is ALLERGIC to penicillin. We'll decide on a combination of Levaquin and Flagyl. He is on no pressors for now. He'll be also fluid resuscitated. Awaiting blood gases and further repeat labs postop. Review of Systems ROS unobtainable: due to endotracheal tube Past Medical History Past Medical History: Asthma Additional Past Medical History / Comment(s): diverticulitis History of Any Multi-Drug Resistant Organisms: None Reported Past Surgical History: No Surgical Hx Reported Past Psychological History: No Psychological Hx Reported Smoking Status: Former smoker Past Alcohol Use History: None Reported Past Drug Use History: None Reported - Past Family History Mother Additional Family Medical History / Comment(s): diverticulitis, head injury, Father Family Medical History: No Reported History Medications and Allergies Home Medications Medication Instructions Recorded Confirmed Type Albuterol Sulfate [Ventolin HFA] 2 puff INHALATION RT-Q6H PRN 04/19/21 04/19/21 History Umeclidinium Brm/Vilanterol Tr 1 puff INHALATION RT-DAILY PRN 04/19/21 04/19/21 History [Anoro Ellipta 62.5-25 Mcg INH] Allergies Allergy/AdvReac Type Severity Reaction Status Date / Time Penicillins Allergy Unknown Verified 04/19/21 23:27 Childhood Physical Exam Vitals: Vital Signs Temp Pulse Pulse Resp BP BP Pulse Ox 04/20/21 19:10 130 H 19 100/81 95 04/20/21 19:00 130 H 18 140/111 96 04/20/21 18:50 133 H 16 04/20/21 18:49 131 H 17 04/20/21 16:33 98.9 F 145 H 18 122/77 94 L 04/20/21 16:00 144 H 18 116/76 92 L 04/20/21 14:00 144 H 18 112/59 04/20/21 09:39 98.8 F 146 H 18 127/71 98 04/20/21 07:05 133/100 04/20/21 02:00 98.2 F 141 H 16 144/129 97 04/20/21 01:05 142 H 18 142/118 90 L 04/20/21 00:12 98.5 F 128 H 18 144/114 94 L 04/19/21 22:07 98.0 F 135 H 20 146/98 96 Intake and Output 04/20/21 04/20/21 04/20/21 06:59 14:59 22:59 Intake Total 2250 Output Total 850 1080 Balance -850 1170 Intake: IV 2250 Lactated Ringers 1,000 ml 100 @ 0 mls/hr IV .[facility][id number] Output: Gastric Drainage 850 Urine 1040 Estimated Blood Loss 40 obese,On a mechanical ventilator and the patient is currently sedated with propofol. His body mass index is 37.3. Orotracheal tube and orogastric tube are both in place. Head exam was generally normal. There was no scleral icterus or corneal arcus. Mucous membranes were moist. Neck was supple and without jugular venous distension, thyromegaly, or carotid bruits. Carotids were easily palpable bilaterally. There was no adenopathy. Lungs were clear to auscultation and percussion, and with normal diaphragmatic excursion. No wheezes or rales were noted. Cardiac exam revealed the PMI to be normally situated and sized. The rhythm was regular and no extrasystoles were noted during several minutes of auscultation. The first and second heart sounds were normal and physiologic splitting of the s econd heart sound was noted. There were no murmurs, rubs, clicks, or gallops. Abdomen is distended. Bowel sounds are absent. Surgical site is dry clean and intact. Colostomy site is noted in the tissue is viable at this point in time. Examination of the extremities revealed easily palpable radial, femoral and pedal pulses. There was no cyanosis, clubbing or edema. Examination of the skin revealed no evidence of significant rashes, suspicious appearing nevi or other concerning lesions. Neurologic the patient sedated Results - Laboratory Findings CBC and BMP: 04/20/21 05:21 04/20/21 05:21 Abnormal lab findings: Abnormal Labs 04/19/21 04/19/21 04/19/21 22:31 22:31 22:31 WBC 31.5 H RBC 6.01 H Hgb 18.1 H Hct 53.7 H Plt Count Neutrophils # 28.7 H Neutrophils # (Manual) Lymphocytes # 0.8 L Monocytes # 1.6 H Monocytes # (Manual) VBG pH VBG pCO2 VBG HCO3 Potassium 5.2 H Carbon Dioxide 19 L BUN 29 H Glucose 225 H POC Glucose (mg/dL) Plasma Lactic Acid Dipesh Calcium 10.7 H Alkaline Phosphatase 138 H Creatine Kinase Total Protein 8.4 H Ur Specific [place] >1.050 H Urine Protein 2+ H Urine Ketones Trace H Urine Blood Small H Urine Bilirubin 1+ H Ur Leukocyte Esterase Trace H Urine RBC 9 H Calcium Oxalate Crystal Occasional H Urine Bacteria Rare H Urine Mucus Few H 04/19/21 04/20/21 04/20/21 22:31 03:08 05:21 WBC 34.3 H RBC 6.05 H Hgb 17.9 H Hct 54.6 H Plt Count 467 H Neutrophils # 29.8 H Neutrophils # (Manual) 30.10 H Lymphocytes # 0.4 L Monocytes # 3.4 H Monocytes # (Manual) 4.12 H VBG pH VBG pCO2 VBG HCO3 Potassium Carbon Dioxide BUN Glucose POC Glucose (mg/dL) Plasma Lactic Acid Dipesh 3.6 H* 4.4 H* Calcium Alkaline Phosphatase Creatine Kinase Total Protein Ur Specific [place] Urine Protein Urine Ketones Urine Blood Urine Bilirubin Ur Leukocyte Esterase Urine RBC Calcium Oxalate Crystal Urine Bacteria Urine Mucus 04/20/21 04/20/21 04/20/21 05:21 05:21 05:21 WBC RBC Hgb Hct Plt Count Neutrophils # Neutrophils # (Manual) Lymphocytes # Monocytes # Monocytes # (Manual) VBG pH 7.30 L VBG pCO2 35 L VBG HCO3 17 L Potassium Carbon Dioxide 14 L BUN 37 H Glucose 230 H POC Glucose (mg/dL) Plasma Lactic Acid Dipesh 6.1 H* Calcium Alkaline Phosphatase Creatine Kinase 50 L Total Protein Ur Specific [place] Urine Protein Urine Ketones Urine Blood Urine Bilirubin Ur Leukocyte Esterase Urine RBC Calcium Oxalate Crystal Urine Bacteria Urine Mucus 04/20/21 04/20/21 04/20/21 09:54 12:47 16:34 WBC RBC Hgb Hct Plt Count Neutrophils # Neutrophils # (Manual) Lymphocytes # Monocytes # Monocytes # (Manual) VBG pH VBG pCO2 VBG HCO3 Potassium Carbon Dioxide BUN Glucose POC Glucose (mg/dL) 197 H Plasma Lactic Acid Dipesh 5.1 H* 2.8 H* Calcium Alkaline Phosphatase Creatine Kinase Total Protein Ur Specific [place] Urine Protein Urine Ketones Urine Blood Urine Bilirubin Ur Leukocyte Esterase Urine RBC Calcium Oxalate Crystal Urine Bacteria Urine Mucus 04/20/21 18:50 WBC RBC Hgb Hct Plt Count Neutrophils # Neutrophils # (Manual) Lymphocytes # Monocytes # Monocytes # (Manual) VBG pH VBG pCO2 VBG HCO3 Potassium Carbon Dioxide BUN Glucose POC Glucose (mg/dL) 128 H Plasma Lactic Acid Dipesh Calcium Alkaline Phosphatase Creatine Kinase Total Protein Ur Specific [place] Urine Protein Urine Ketones Urine Blood Urine Bilirubin Ur Leukocyte Esterase Urine RBC Calcium Oxalate Crystal Urine Bacteria Urine Mucus - Diagnostic Findings Chest x-ray: image reviewed Assessment and Plan Plan: 1 acute bowel obstruction with massive colonic and small bowel distention and dilatation with abdominal pain and signs of toxic megacolon. The patient underwent emergent decompression of the colon and small bowel along with dive rting transverse loop colostomy. The patient is currently postop day #0. 2 sigmoid colon obstruction, consider possibility of diverticular complications. 3 acute hypoxic respiratory failure. The patient is currently the baby mechanical ventilator. The patient was kept on a mechanical ventilator postop. Chest x-ray was noted in the waiting a blood gas 4 acute leukocytosis secondary to above 5 acute lactic acidosis secondary to above 6 obesity with a BMI of 37.3 7 history of diverticular disease 8 history of bronchial asthma Plan Continue vent support and this is a ventilator changes will be done pending blood gases Keep the patient is sedated with propofol Dilaudid for pain control and use fentanyl drip if needed for sedation Keep OG tube in place Monitor colostomy site Cover the patient with accommodation Levaquin and Flagyl Give the patient 2 L of normal saline and maintain him on a rate of 150 mL an hour Monitor urine output Blood cultures Monitor the lactic acid levels triple-lumen catheter was inserted Lovenox for DVT prophylaxis We'll continue to follow. Condition is critical for the time being. Time with Patient: Greater than 30
--- NOTE | 2021-04-20 19:48 | P.PCN ---
Date of Procedure: 04/20/21 Preoperative Diagnosis: acute bowel obstruction Postoperative Diagnosis: acute bowel obstruction Procedure(s) Performed: central line insertion Anesthesia: local Surgeon: Shaw Adams Estimated Blood Loss (ml): 0 Pathology: other Condition: critical Disposition: ICU Operative Findings: Indication: Hemodynamic monitoring/Intravenous access. A time-out was completed verifying correct patient, procedure, site, positioning, and implant(s) or special equipment if applicable. The patient was placed in a dependent position appropriate for central line placement based on the vein to be cannulated. The patients left neck was prepped and draped in sterile fashion. 1% Lidocaine was used to anesthetize the surrounding skin area. A triple lumen 9F Cordis catheter was introduced into the left internal jugular vein using Seldinger technique. The catheter was threaded smoothly over the guide wire and appropriate blood return was obtained. Each lumen of the catheter was evacuated of air and flushed with sterile saline. The catheter was then sutured in place to the skin and a sterile dressing applied. Perfusion to the extremity distal to the point of catheter insertion was checked and found to be adequate. The patient tolerated the procedure well and there were no complications.
[2021-04-20 19:55] LABS: ABG Base Excess -6.7 mmol/L; ABG HCO3 20 mmol/L (21-25); ABG Oxygen Saturation 98.7 % (94-97); ABG PCO2 42 mmHg (35-45); ABG PH 7.29 (7.35-7.45); ABG PO2 136 mmHg (83-108); ABG TCO2 21 mmol/L (19-24); Allen Test Performed? Yes
--- NOTE | 2021-04-20 19:59 | XR ---
EXAMINATION: XR chest 1V portable DATE AND TIME: 04/20/2021 7:17 PM CLINICAL INDICATION: PHH; Tube placement TECHNIQUE: Portable AP supine COMPARISON: 04/20/2021 4:55 AM FINDINGS: ET tube tip superimposed over the mid trachea at the level of the lower margin of the clavicular head s. NG tube present, with port superimposing the expected position of the gastric cardia. EKG leads. Supine radiography cannot exclude abnormal gas collections, but none are visualized as seen. The hemidiaphragms are markedly elevated, consistent with low lung inflation at the moment of x-ray e xposure. The upper lung zones appear clear and well expanded. The mid and lower lung zones cannot be evaluated due to the elevation of the hemidiaphragms. Pleural spaces: Small bilateral pleural shadow thickening, suggests small bilateral pleural effusions , greater on the right. Cardiac silhouette appears prominent, but this is likely due to positioning and the elevated hemidiap hragms. No acute bone or soft tissue findings. IMPRESSION: Postintubation chest radiograph.
[2021-04-20] MEDS ORDERED: LEVOFLOXACIN 500MG-D5W PMX 500 MG in DEXTROSE/WATER 1 100ML.BAG IVPB SCH (20:00)
--- NOTE | 2021-04-20 20:03 | XR ---
EXAMINATION: XR chest 1V portable DATE AND TIME: 04/20/2021 7:41 PM CLINICAL INDICATION: PHH; line placement TECHNIQUE: AP portable upright COMPARISON: 04/20/2021 7:08 PM FINDINGS: Since the prior study a left IJ central line is in place, coursing across the midline to have its tip superimposed over the expected position of the junction of the IVC/azygos. Remainder of the support lines and catheters are unchanged. No evidence of pneumothorax. The lungs and pleural spaces and cardiomediastinal silhouette are unaltered since the prior study. IMPRESSION: Post central line placement chest radiograph.
[2021-04-20] MEDS: metroNIDAZOLE-NS PMX 500 MG in SALINE 1 100ML.BAG IVPB SCH (20:25)
[2021-04-20] MEDS: CHLORHEXIDINE GLUCONATE 15 ML CUP MUCOUS MEM SCH (20:25)
[2021-04-20] MEDS ORDERED: LEVOFLOXACIN 750MG-D5W PMX 750 MG in DEXTROSE/WATER 1 150ML.BAG IVPB SCH (21:00)
[2021-04-20 22:37] LABS: Appearance,Urine Clear (Clear); Bacteria,Urine Rare /hpf; Bilirubin,Urine Negative (Negative); Blood,Urine Small (Negative); Color,Urine Yellow; Glucose,Urine (UA) Negative (Negative); Hyaline Casts,Urine 24 /lpf (0-2); Ketones,Urine Negative (Negative); Leukocyte Esterase,Urine Negative (Negative); Mucus,Urine Rare /hpf; Nitrite,Urine Negative (Negative); PH, Urine 5.5 (5.0-8.0); Protein,Urine 1+ (Negative); RBC,Urine 12 /hpf (0-5); Specific Gravity,Urine 1.037 (1.001-1.035); WBC,Urine 2 /hpf (0-5)
[2021-04-20] MEDS: fentaNYL (PF). 1,000 MCG in SODIUM CHLORIDE 0.9% 80 ML IV SCH (23:05)
[2021-04-20 23:22] LABS: Amphetamine Screen,Urine Not Detected (NotDetected); Barbiturate Screen,Urine Not Detected (NotDetected); Benzodiazepines Screen,Urine Not Detected (NotDetected); Cocaine Screen,Urine Not Detected (NotDetected); Methadone Screen, Urine Not Detected (NotDetected); Opiate Screen,Urine Detected (NotDetected); Oxycodone Screen, Urine Not Detected (NotDetected); Phencyclidine Screen,Urine Not Detected (NotDetected); Tricyclic Antidepressant,Urine Not Detected (NotDetected); Urn Cannabinoid Scrn Not Detected (NotDetected)
[2021-04-21] MEDS ORDERED: metroNIDAZOLE-NS PMX 500 MG in SALINE 1 100ML.BAG IVPB SCH
[2021-04-21] MEDS: ACETAMINOPHEN TAB 325 MG TAB PO PRN ×2 (00:28→15:13)
[2021-04-21] MEDS ORDERED: SODIUM CHLORIDE 0.9% 2,000 ML IV ONE (03:32)
[2021-04-21] MEDS: SODIUM CHLORIDE 0.9% 1,000 ML IV SCH ×2 (03:32→10:31)
[2021-04-21] MEDS: fentaNYL (PF). 1,000 MCG in SODIUM CHLORIDE 0.9% 80 ML IV SCH ×3 (05:36→20:25)
[2021-04-21 05:43] LABS: ALT 23 U/L (4-49); AST 31 U/L (17-59); African American GFR (CKD) >90 (>60 ml/min/1.73 sqM); Albumin 2.2 g/dL (3.5-5.0); Alkaline Phosphatase 46 U/L (38-126); Anion Gap 6 mmol/L; Blood Urea Nitrogen 42 mg/dL (9-20); Calcium 6.6 mg/dL (8.4-10.2); Carbon Dioxide 16 mmol/L (22-30); Chloride 118 mmol/L (98-107); Glucose 152 mg/dL (74-99); Magnesium 2.3 mg/dL (1.6-2.3); Non-African American GFR(CKD) 89 (>60 ml/min/1.73 sqM); Phosphorus 4.2 mg/dL (2.5-4.5); Sodium 140 mmol/L (137-145); Total Bilirubin 0.4 mg/dL (0.2-1.3); Total Protein 4.5 g/dL (6.3-8.2)
[2021-04-21 05:56] LABS: ABG Base Excess -5.9 mmol/L; ABG HCO3 20 mmol/L (21-25); ABG Oxygen Saturation 97.5 % (94-97); ABG PCO2 41 mmHg (35-45); ABG PH 7.31 (7.35-7.45); ABG PO2 134 mmHg (83-108); ABG TCO2 22 mmol/L (19-24); Allen Test Performed? Yes
[2021-04-21 06:06] LABS: Potassium 4.7 mmol/L (3.5-5.1)
[2021-04-21] MEDS: metroNIDAZOLE-NS PMX 500 MG in SALINE 1 100ML.BAG IVPB SCH ×3 (06:12→19:59)
[2021-04-21 07:29] LABS: HCT 42.8 % (39.0-53.0); MCH 30.3 pg (25.0-35.0); MCHC 32.9 g/dL (31.0-37.0); MCV 92.2 fL (80.0-100.0); Mean Platelet Volume 7.2; Platelet Count 277 k/uL (150-450); RBC 4.65 m/uL (4.30-5.90); RDW 13.7 % (11.5-15.5)
--- NOTE | 2021-04-21 07:29 | XR ---
EXAMINATION TYPE: XR chest 1V portable DATE OF EXAM: 04/21/2021 COMPARISON: 04/20/2021 HISTORY: Tube placement TECHNIQUE: Single frontal view of the chest is obtained. FINDINGS: Endotracheal, enteric and left IJ lines are in unchanged positions with the left IJ line likely withi n the brachiocephalic with tip pointed cephalad. Bibasilar airspace disease appears similar. Low lung volumes accentuate the pulmonary vasculature and cardiomediastinal silhouette. Cardiac silhouette is unchanged. IMPRESSION: No significant change since the prior exam.
[2021-04-21 07:31] LABS: HGB 14.1 gm/dL (13.0-17.5)
[2021-04-21] MEDS: CHLORHEXIDINE GLUCONATE 15 ML CUP MUCOUS MEM SCH ×2 (08:07→19:59)
[2021-04-21] MEDS: PANTOPRAZOLE 40 MG/10 ML VIAL IVP SCH (08:07)
[2021-04-21] MEDS: ENOXAPARIN 40 MG/0.4 ML SYRINGE SQ SCH (08:07)
--- NOTE | 2021-04-21 08:09 | CONS ---
CONSULTATION DATE OF SERVICE: 04/20/2021. REASON FOR CONSULTATION: Advice regarding asthma and other medical issues requested by surgery. HISTORY OF PRESENT ILLNESS: This 40-year-old gentleman with past medical history of asthma, diverticulitis, being followed apparently by no primary physician in the outpatient setting presented to the emergency room last night with features of abdominal pain. The patient had history of diverticulitis and the pain was diffuse and was like at least a couple days, which was progressively worsened and the patient underwent a CT scan of the abdomen and pelvis which showed dilated large bowel and fecal material and with limited air and possible stricture was also noted. Tumor was not excluded. The patient underwent exploratory laparotomy and the patient underwent a sigmoid colon obstruction and decompression of the colon small-bowel and diverting transverse loop colostomy. Significant small bowel and chronic distention was noted during the surgery. Possibly patient abdomen is still distended and the patient is being mechanical ventilation is being continued at this time. Dr. Adams is following the patient for ICU management. Patient is started on broad-spectrum IV antibiotics, Zosyn and Flagyl. The patient is unable to provide a coherent history. Most of the history taken from my discussion with staff and review of the chart at this time. Emergent bowel decompression also performed. PAST MEDICAL HISTORY: History of asthma, diverticulitis. MEDICATIONS: Prior to admission, home medications are: that is Anoro Ellipta and Ventolin. ALLERGIES: PENICILLIN. Family history and social history, review of systems could not be taken. FAMILY HISTORY: Apparently of diverticulitis, head injury. PHYSICAL EXAMINATION: Patient is mechanically ventilated and sedated and vent settings are noted. Pulse 126, blood pressure 91/66, respiration 22, temperature 98.1, pulse ox 98% on 100% mechanical ventilation. HEENT: Conjunctivae normal. NECK: No JVD. CARDIOVASCULAR: S1, S2. RESPIRATORY: Breath sounds diminished. A few scattered rhonchi. ABDOMEN: Soft, status post surgery. Midline incision present, colostomy was present and bowel sounds absent. ascites. LEGS: No edema. No swelling. NERVOUS SYSTEM: Higher functions as mentioned earlier. Moves all four limbs. No focal deficits. LYMPHATICS: No lymph nodes palpable in the neck, axillae or groin. SKIN: No ulcer, no rashes and no bleeding. JOINTS: No active deforming arthropathy. LAB STUDIES: Lactic acid 2.4. WBC 34.3 and hemoglobin is 17.9 and sodium 139, potassium 4.4. Lactic acid 3.6. ASSESSMENT: 1. Acute sigmoid obstruction, bowel obstruction status post diverting and transverse loop colostomy and decompression of the colon and small bowel. 2. Toxic megacolon. 3. Acute sepsis present on admission. 4. Acute hypoxic respiratory failure. 5. Acute metabolic acidosis. 6. Lactic acidosis. 7. Hypercalcemia, present on admission. 8. Hyperkalemia present on admission. 9. Increased WBC. 10.Elevated hemoglobin, possible polycythemia. 11.History of asthma. 12.History of diverticulitis. 13.History of nicotine dependence. 14.Obesity with body mass index of 37.3. 15.FULL CODE. RECOMMENDATIONS AND DISCUSSION: This 40-year-old gentleman who presented with multiple complex medical issues, we will monitor the patient closely. Continue the current medications, management and symptomatic treatment. We will continue with broad-spectrum IV antibiotics. The patient is started on Levaquin, and IV Flagyl. Recommend cultures and Infectious Disease evaluation. Other than that, DVT prophylaxis. Proton pump inhibitors. Continue the rest of medications, bronchodilators and mechanical ventilation and vent management per Dr. Adasm. Guarded prognosis because of multiple complex medical issues. Further recommendations to follow. MMODL / IJN: [id number] / YOGI
--- NOTE | 2021-04-21 08:49 | P.PN ---
Subjective Progress Note Date: 04/21/21 this is a 40-year-old male patientpresented to the hospital because of abdominal pain and distention. The patient had [id number] amount of bloating. He has been constipated and he was taken max citrate on outpatient basis. He had a bout of emesis prior to him coming to the hospital. His last colonoscopy was in December 2019 and was essentially a poor prep and there was some mild narrowing of the sigmoid colon extending from 30 cm from the anal verge with mild mucosal thickening and erythema suspicious for diverticular related complications.The patient had a CAT scan of the abdomen that showed dilated small and large bowel. An NG tube was inserted. The patient was quite ill, he had a leukocytosis and the patient also had lactic acidosis with a high as lactic acid level of 6.1. At that point, the patient was taken to the operating room and the patient underwent decompression of the colon and small bowel with a diverticular source loop colostomy. Postop, the patient was brought into the intensive care unit.intraoperatively, the patient was found to have significant small bowel and colonic distention. The small bowel was decompressed first. The enterotomy was closed using a TX 60 stapler. Next the transverse colon was found. He was massively dilated. A suitable spot for a loop colostomy was found. And then the decompressive colostomy was treated. The colon was decompressed and the enterotomy is closed using the TX 60 stapler. The patient appeared to have a colonic obstruction at the sigmoid colon. Due to the massive distention of the bowel was decided not to perform resection. The colostomy brought up in the left upper quadrant. The patient is currently intubated on a mechanical ventilator. In the ICU, the patient was started on propofol for sedation. Currently is on 70 mcg/kg per minute of propofol infusion. At the same time, the patient is sitting the left for pain control. NG tube is in place and output is minimal at this point in time. Surgical wound site is dry clean and intact. Abdomen remains somewhat distended. Bowel sounds are absent. He is on a mechanical ventilator. I have an assist-control mode with a rate of 24, tidal volume of 500, FiO2 100% and PEEP of 5. Chest x-ray showed smaller lung volumes and the patient had an orotracheal tube in place. A triple catheter was also inserted through the left IJ. OG tube is in a good location. Patient is ALLERGIC to penicillin. We'll decide on a combination of Levaquin and Flagyl. He is on no pressors for now. He'll be also fluid resuscitated. Awaiting blood gases and further repeat labs postop. On today's evaluation on 04/21/2021 patient seen in follow-up in the intensive c are unit, he is currently intubated and sedated on assist control mode of ventilation with a rate of 22, tidal volume is 500, FiO2 of 60% and PEEP of 5, this morning's blood gas shows pO2 of 134, pCO2 41, and pH of 7.31, this was done and FiO2 of 70% which was subsequently dropped down to 60%. He is currently on IV fluids with 0.9 normal saline at a rate of 150 ML per hour, fentanyl at 1 melquiades per kilo per minute, and Diprivan 35 mics per kilo per minute. Hemodynamically patient is not requiring any vasopressor support, he never required norepinephrine, and this morning vital signs are as follows: Per Cerner is 100.2, he is in sinus mechanism tachycardic with a rate of 125, blood pressure is 92/62 with a mean of 72, and respiratory rate of 22. T-max in the last 24 hours was 101.8F, patient remains on a combination of antibiotics in the form of Zosyn and Flagyl. Today's chest x-ray shows low lung volumes accentuating the pulmonary vasculature. An ET tube left IJ line and NG tube are all in appropriate positions, NG tube is in place to low intermittent suction, and there is been a total of 850 ML of gastric output in the last 24 hours, left abdominal colostomy is in place, without gas or stool. Abdomen appears to be slightly less distended on today's exam, mid abdominal incision is clean dry and intact, irineo are intact. Bowel sounds are absent. Urine output is in order of 60-120 ML per hour, patient received aggressive fluid resuscitation yesterday her lactic acidosis and the lactic acid peaked at 6.1, and on today's labs is down to 2.0. Patient received a total of 8 L in fluid boluses. The rest of his lab work has been reviewed, his white blood cell counts has significantly improved from yesterday and is down to 11 from 34.3 on yesterday's labs, hemoglobin is 14.1, sodium is 140, potassium is 4.7, chloride is 118, CO2 is 16, anion gap is 6, B1 is 42, creatinine is 1.04, serum glucose is 152, LFTs are within normal limits his amylase and lipase were within normal limits on admission at 43 and 23 respectively, urinalysis yesterday showed 1+ protein, small amount of blood, no sign of infection, urine drug screen showed opiates. His COVID-19 screen was negative. His was discussed with general surgery on the case, hemodynamically patient's blood pressure is overlying and patient may still require starting vasopressors, and his chemistries show non-anion gap acidosis and as such patient will be continued on ventilator support for further monitoring. Objective - Vital Signs Vital signs: Vital Signs Temp 100.2 F H 04/21/21 08:00 Pulse 125 H 04/21/21 08:00 Resp 22 04/21/21 08:00 BP 92/62 04/21/21 08:00 Pulse Ox 95 04/21/21 08:00 Intake & Output 04/20/21 04/21/21 04/21/21 18:59 06:59 18:59 Intake Total 2150 6043.457 425.356 Output Total 1930 735 220 Balance 220 5308.457 205.356 Weight 131 kg Intake: IV 2150 1100 Lactated Ringers 1,000 ml 1100 @ 0 mls/hr IV .[facility] Rx#:[id number] Intake, IV Titration 4943.457 425.356 Amount Levofloxacin 750Mg-D5w 150 Pmx 750 mg In Dextrose/ Water 1 150ml.bag @ 100 mls/hr IVPB HS [facility] Rx#: [id number] Sodium Chloride 0.9% 1, 300 300 000 ml @ 150 mls/hr IV . Q6H40M [facility] Rx#:[id number] Sodium Chloride 0.9% 2, 2000 000 ml @ 999 mls/hr IV . Q2H1M [facility] Rx#:[id number] Sodium Chloride 0.9% 2, 2000 000 ml @ 999 mls/hr IV . Q2H1M [facility] Rx#:[id number] fentaNYL (PF). 1,000 mcg 69.973 In Sodium Chloride 0.9% 80 ml @ 0.5 MCG/KG/HR 5. 897 mls/hr IV .[id number] [facility] Rx#:[id number] metroNIDAZOLE-NS PMX 500 100 mg In Saline 1 100ml.bag @ 100 mls/hr IVPB Q8H [facility] Rx#:[id number] propofoL 1,000 mg In 323.484 125.356 Empty Bag 1 bag @ Titrate IV .Q0M [facility] Rx#: [id number] Output: Gastric Drainage 850 Urine 1040 735 220 Estimated Blood Loss 40 Other: Voiding Method Indwelling Catheter Indwelling Catheter - Exam GENERAL EXAM: Sedated, and intubated, 40-year-old white male, on assist control mode of ventilation with FiO2 of 60% and PEEP of 5, comfortable in no apparent distress. HEAD: Normocephalic/atraumatic. EYES: Normal reaction of pupils, equal size. Conjunctiva pink, sclera white. NOSE: Clear with pink turbinates. THROAT: No erythema or exudates. NECK: No masses, no JVD, no thyroid enlargement, no adenopathy. CHEST: No chest wall deformity. Symmetrical expansion. LUNGS: Equal air entry with no crackles, wheeze, rhonchi or dullness. CVS: Regular rate and rhythm, normal S1 and S2, no gallops, no murmurs, no rubs. Patient is in sinus mechanism, tachycardic with a rate of 125 BPM ABDOMEN: Distended, but nontender, absent bowel sounds, mid abdominal incision is clean dry and intact, irineo are intact EXTREMITIES: No clubbing, no edema, no cyanosis, 2+ pulses and upper and lower extremities. MUSCULOSKELETAL: Muscle strength and tone normal. SPINE: No scoliosis or deformity SKIN: No rashes CENTRAL NERVOUS SYSTEM: Sedated, intubated. No focal deficits, tone is normal in all 4 extremities. - Labs CBC & Chem 7: 04/21/21 05:58 04/21/21 04:32 Labs: Abnormal Lab Results - Last 24 Hours (Table) 04/20/21 04/20/21 04/20/21 Range/Units 05:21 09:54 12:47 WBC (3.8-10.6) k/uL Neutrophils # 29.8 H (1.3-7.7) k/uL Neutrophils # (Manual) 30.10 H (1.3-7.7) k/uL Lymphocytes # 0.4 L (1.0-4.8) k/uL Monocytes # 3.4 H (0-1.0) k/uL Monocytes # (Manual) 4.12 H (0-1.0) k/uL ABG pH (7.35-7.45) ABG pO2 (83-108) mmHg ABG HCO3 (21-25) mmol/L ABG O2 Saturation (94-97) % Chloride (98-107) mmol/L Carbon Dioxide (22-30) mmol/L BUN (9-20) mg/dL Glucose (74-99) mg/dL POC Glucose (mg/dL) (75-99) mg/dL Plasma Lactic Acid Dipesh 5.1 H* 2.8 H* (0.7-2.0) mmol/L Calcium (8.4-10.2) mg/dL Total Protein (6.3-8.2) g/dL Albumin (3.5-5.0) g/dL Ur Specific [place] (1.001-1.035) Urine Protein (Negative) Urine Blood (Negative) Urine RBC (0-5) /hpf Urine Bacteria (None) /hpf Hyaline Casts (0-2) /lpf Urine Mucus (None) /hpf Urine Opiates Screen (NotDetected) 04/20/21 04/20/21 04/20/21 Range/Units 16:34 18:50 19:44 WBC (3.8-10.6) k/uL Neutrophils # (1.3-7.7) k/uL Neutrophils # (Manual) (1.3-7.7) k/uL Lymphocytes # (1.0-4.8) k/uL Monocytes # (0-1.0) k/uL Monocytes # (Manual) (0-1.0) k/uL ABG pH (7.35-7.45) ABG pO2 (83-108) mmHg ABG HCO3 (21-25) mmol/L ABG O2 Saturation (94-97) % Chloride (98-107) mmol/L Carbon Dioxide (22-30) mmol/L BUN (9-20) mg/dL Glucose (74-99) mg/dL POC Glucose (mg/dL) 197 H 128 H (75-99) mg/dL Plasma Lactic Acid Dipesh 2.4 H* (0.7-2.0) mmol/L Calcium (8.4-10.2) mg/dL Total Protein (6.3-8.2) g/dL Albumin (3.5-5.0) g/dL Ur Specific [place] (1.001-1.035) Urine Protein (Negative) Urine Blood (Negative) Urine RBC (0-5) /hpf Urine Bacteria (None) /hpf Hyaline Casts (0-2) /lpf Urine Mucus (None) /hpf Urine Opiates Screen (NotDetected) 04/20/21 04/20/21 04/21/21 Range/Units 19:54 22:05 04:32 WBC (3.8-10.6) k/uL Neutrophils # (1.3-7.7) k/uL Neutrophils # (Manual) (1.3-7.7) k/uL Lymphocytes # (1.0-4.8) k/uL Monocytes # (0-1.0) k/uL Monocytes # (Manual) (0-1.0) k/uL ABG pH 7.29 L (7.35-7.45) ABG pO2 136 H (83-108) mmHg ABG HCO3 20 L (21-25) mmol/L ABG O2 Saturation 98.7 H (94-97) % Chloride 118 H (98-107) mmol/L Carbon Dioxide 16 L (22-30) mmol/L BUN 42 H (9-20) mg/dL Glucose 152 H (74-99) mg/dL POC Glucose (mg/dL) (75-99) mg/dL Plasma Lactic Acid Dipesh (0.7-2.0) mmol/L Calcium 6.6 L (8.4-10.2) mg/dL Total Protein 4.5 L (6.3-8.2) g/dL Albumin 2.2 L (3.5-5.0) g/dL Ur Specific [place] 1.037 H (1.001-1.035) Urine Protein 1+ H (Negative) Urine Blood Small H (Negative) Urine RBC 12 H (0-5) /hpf Urine Bacteria Rare H (None) /hpf Hyaline Casts 24 H (0-2) /lpf Urine Mucus Rare H (None) /hpf Urine Opiates Screen Detected H (NotDetected) 04/21/21 04/21/21 Range/Units 05:49 05:58 WBC 11.0 H (3.8-10.6) k/uL Neutrophils # (1.3-7.7) k/uL Neutrophils # (Manual) (1.3-7.7) k/uL Lymphocytes # (1.0-4.8) k/uL Monocytes # (0-1.0) k/uL Monocytes # (Manual) (0-1.0) k/uL ABG pH 7.31 L (7.35-7.45) ABG pO2 134 H (83-108) mmHg ABG HCO3 20 L (21-25) mmol/L ABG O2 Saturation 97.5 H (94-97) % Chloride (98-107) mmol/L Carbon Dioxide (22-30) mmol/L BUN (9-20) mg/dL Glucose (74-99) mg/dL POC Glucose (mg/dL) (75-99) mg/dL Plasma Lactic Acid Dipesh (0.7-2.0) mmol/L Calcium (8.4-10.2) mg/dL Total Protein (6.3-8.2) g/dL Albumin (3.5-5.0) g/dL Ur Specific [place] (1.001-1.035) Urine Protein (Negative) Urine Blood (Negative) Urine RBC (0-5) /hpf Urine Bacteria (None) /hpf Hyaline Casts (0-2) /lpf Urine Mucus (None) /hpf Urine Opiates Screen (NotDetected) Microbiology - Last 24 Hours (Table) 04/20/21 02:45 Blood Culture - Preliminary Blood No Growth after 24 hours 04/20/21 02:30 Blood Culture - Preliminary Blood No Growth after 24 hours Assessment and Plan Plan: Assessment: #1. Acute bowel obstruction with massive colonic and small bowel distention and dilatation with abdominal pain and signs of toxic megacolon. The patient underwent emergent decompression of the colon and small bowel along with diverting transverse loop colostomy on 04/20/2021. The patient is currently postop day #1. #2. Sigmoid colon obstruction, consider possibility of diverticular complications. #3. Acute hypoxic respiratory failure related to possible sepsis and acute intra-abdominal process with the possibility of sigmoid obstruction and severe abdominal distention. The patient is currently on mechanical ventilator. The patient was kept on a mechanical ventilator postop. #4. Acute leukocytosis secondary to above, improving #5. Acute lactic acidosis secondary to above, improved #6. Hyperchloremic non-anion gap metabolic acidosis, related to massive fluid resuscitation with 0.9 normal saline #7. Obesity with a BMI of 37.3 #8. History of diverticular disease #9. history of bronchial asthma Plan: Continue current antibiotics Flagyl and Zosyn Blood gases chest x-ray and labs have been reviewed FiO2 has been dropped to 60% Continue weaning FiO2 to maintain O2 saturations at or above 92% We'll switch IV fluids to D5W with 3 A of bicarbonate at 100 ML per hour Monitor fever pattern Urine output No output from colostomy, no bowel sounds Pressure is borderline, patient may require pressor support We'll keep the patient sedated and intubated No weaning trials today Continue to closely follow his clinical course I performed a history & physical examination of the patient and discussed their management with my nurse practitioner, Mary Currie. I reviewed the nurse practitioner's note and agree with the documented findings and plan of care. Lung sounds are positive for diminished breath sounds throughout the lung morris. The findings and the impression was discussed with the patient. I attest to the documentation by the nurse practitioner. Time with Patient: Greater than 30
[2021-04-21] MEDS: DEXTROSE 5% IN WATER 1,000 ML with SOD BICARB SYR 8.4% (1 MEQ/ML) 150 ML IV SCH ×2 (10:29→22:29)
[2021-04-21] MEDS: NOREPINEPHRINE 8 MG in SODIUM CHLORIDE 0.9% 250 ML IV SCH (10:30)
--- NOTE | 2021-04-21 12:43 | P.PN ---
Subjective Progress Note Date: 04/21/21 CHIEF COMPLAINT: Abdominal pain and abdominal distention HISTORY OF PRESENT ILLNESS: Patient is status post decompression of colon and small bowel with diverting transverse loop colostomy for sigmoid colon obstruction and massive colonic and small bowel dilatation. Postop day #1. Patient remains in the ICU. He is intubated and sedated. No stool from ostomy. NG tube with minimal output. Patient has been febrile with a T-max of 101.8 and tachycardic with BP on the lower side. He is not on any vasopressors. WBC has decreased from 34.3-11.0 Hgb 14.1 platelets 277 sodium 140 potassium 4.7 CO2 16 BUN 14 creatinine 1.04 PHYSICAL EXAM: VITAL SIGNS: Reviewed. GENERAL: Well-developed in no acute distress. HEENT: No sclera icterus. Extraocular movements grossly intact. Moist buccal mucosa. Head is atraumatic, normocephalic. ABDOMEN: Soft. Distended. But less distended than yesterday. Incisional dressing clean dry and intact. Ostomy with sanguinous output. NEUROLOGIC: Intubated and sedated ASSESSMENT: 1. Sigmoid colon obstruction and massive colonic and small bowel dilatation status post decompression of colon and small bowel with diverting transverse loop colostomy PLAN: -Continue ICU management -Continue supportive care -Continue NG tube for decompression -continue antibiotics per ID -Vent management per critical care team Physician Piper Installer note has been reviewed by physician. Signing provider agrees with the documented findings, assessment, and plan of care. Objective - Vital Signs Vital signs: Vital Signs Temp 100.2 F H 04/21/21 08:00 Pulse 126 H 04/21/21 11:00 Resp 22 04/21/21 11:00 BP 105/72 04/21/21 11:00 Pulse Ox 95 04/21/21 11:00 Intake & Output 04/20/21 04/21/21 04/21/21 18:59 06:59 18:59 Intake Total 2150 6043.457 950.000 Output Total 1930 735 570 Balance 220 5308.457 380.000 Weight 131 kg 131 kg Intake: IV 2150 1100 450 Lactated Ringers 1,000 ml 1100 @ 0 mls/hr IV .[facility] Rx#:[id number] Sodium Chloride 0.9% 1, 450 000 ml @ 150 mls/hr IV . Q6H40M [facility] Rx#:[id number] Intake, IV Titration 4943.457 500.000 Amount Levofloxacin 750Mg-D5w 150 Pmx 750 mg In Dextrose/ Water 1 150ml.bag @ 100 mls/hr IVPB HS [facility] Rx#: [id number] Sodium Chloride 0.9% 1, 300 300 000 ml @ 150 mls/hr IV . Q6H40M [facility] Rx#:[id number] Sodium Chloride 0.9% 2, 2000 000 ml @ 999 mls/hr IV . Q2H1M [facility] Rx#:[id number] Sodium Chloride 0.9% 2, 2000 000 ml @ 999 mls/hr IV . Q2H1M [facility] Rx#:[id number] fentaNYL (PF). 1,000 mcg 69.973 In Sodium Chloride 0.9% 80 ml @ 0.5 MCG/KG/HR 5. 897 mls/hr IV .[id number] [facility] Rx#:[id number] metroNIDAZOLE-NS PMX 500 100 mg In Saline 1 100ml.bag @ 100 mls/hr IVPB Q8H [facility] Rx#:[id number] propofoL 1,000 mg In 323.484 200.000 Empty Bag 1 bag @ Titrate IV .Q0M [facility] Rx#: [id number] Output: Gastric Drainage 850 Urine 1040 735 570 Estimated Blood Loss 40 Other: Voiding Method Indwelling Catheter Indwelling Catheter - Labs CBC & Chem 7: 04/21/21 05:58 04/21/21 04:32 Labs: Abnormal Lab Results - Last 24 Hours (Table) 04/20/21 04/20/21 04/20/21 Range/Units 05:21 12:47 16:34 WBC (3.8-10.6) k/uL Neutrophils # 29.8 H (1.3-7.7) k/uL Neutrophils # (Manual) 30.10 H (1.3-7.7) k/uL Lymphocytes # 0.4 L (1.0-4.8) k/uL Monocytes # 3.4 H (0-1.0) k/uL Monocytes # (Manual) 4.12 H (0-1.0) k/uL ABG pH (7.35-7.45) ABG pO2 (83-108) mmHg ABG HCO3 (21-25) mmol/L ABG O2 Saturation (94-97) % Chloride (98-107) mmol/L Carbon Dioxide (22-30) mmol/L BUN (9-20) mg/dL Glucose (74-99) mg/dL POC Glucose (mg/dL) 197 H (75-99) mg/dL Plasma Lactic Acid Dipesh 2.8 H* (0.7-2.0) mmol/L Calcium (8.4-10.2) mg/dL Total Protein (6.3-8.2) g/dL Albumin (3.5-5.0) g/dL Ur Specific [place] (1.001-1.035) Urine Protein (Negative) Urine Blood (Negative) Urine RBC (0-5) /hpf Urine Bacteria (None) /hpf Hyaline Casts (0-2) /lpf Urine Mucus (None) /hpf Urine Opiates Screen (NotDetected) 04/20/21 04/20/21 04/20/21 Range/Units 18:50 19:44 19:54 WBC (3.8-10.6) k/uL Neutrophils # (1.3-7.7) k/uL Neutrophils # (Manual) (1.3-7.7) k/uL Lymphocytes # (1.0-4.8) k/uL Monocytes # (0-1.0) k/uL Monocytes # (Manual) (0-1.0) k/uL ABG pH 7.29 L (7.35-7.45) ABG pO2 136 H (83-108) mmHg ABG HCO3 20 L (21-25) mmol/L ABG O2 Saturation 98.7 H (94-97) % Chloride (98-107) mmol/L Carbon Dioxide (22-30) mmol/L BUN (9-20) mg/dL Glucose (74-99) mg/dL POC Glucose (mg/dL) 128 H (75-99) mg/dL Plasma Lactic Acid Dipesh 2.4 H* (0.7-2.0) mmol/L Calcium (8.4-10.2) mg/dL Total Protein (6.3-8.2) g/dL Albumin (3.5-5.0) g/dL Ur Specific [place] (1.001-1.035) Urine Protein (Negative) Urine Blood (Negative) Urine RBC (0-5) /hpf Urine Bacteria (None) /hpf Hyaline Casts (0-2) /lpf Urine Mucus (None) /hpf Urine Opiates Screen (NotDetected) 04/20/21 04/21/21 04/21/21 Range/Units 22:05 04:32 05:49 WBC (3.8-10.6) k/uL Neutrophils # (1.3-7.7) k/uL Neutrophils # (Manual) (1.3-7.7) k/uL Lymphocytes # (1.0-4.8) k/uL Monocytes # (0-1.0) k/uL Monocytes # (Manual) (0-1.0) k/uL ABG pH 7.31 L (7.35-7.45) ABG pO2 134 H (83-108) mmHg ABG HCO3 20 L (21-25) mmol/L ABG O2 Saturation 97.5 H (94-97) % Chloride 118 H (98-107) mmol/L Carbon Dioxide 16 L (22-30) mmol/L BUN 42 H (9-20) mg/dL Glucose 152 H (74-99) mg/dL POC Glucose (mg/dL) (75-99) mg/dL Plasma Lactic Acid Dipesh (0.7-2.0) mmol/L Calcium 6.6 L (8.4-10.2) mg/dL Total Protein 4.5 L (6.3-8.2) g/dL Albumin 2.2 L (3.5-5.0) g/dL Ur Specific [place] 1.037 H (1.001-1.035) Urine Protein 1+ H (Negative) Urine Blood Small H (Negative) Urine RBC 12 H (0-5) /hpf Urine Bacteria Rare H (None) /hpf Hyaline Casts 24 H (0-2) /lpf Urine Mucus Rare H (None) /hpf Urine Opiates Screen Detected H (NotDetected) 04/21/21 Range/Units 05:58 WBC 11.0 H (3.8-10.6) k/uL Neutrophils # (1.3-7.7) k/uL Neutrophils # (Manual) (1.3-7.7) k/uL Lymphocytes # (1.0-4.8) k/uL Monocytes # (0-1.0) k/uL Monocytes # (Manual) (0-1.0) k/uL ABG pH (7.35-7.45) ABG pO2 (83-108) mmHg ABG HCO3 (21-25) mmol/L ABG O2 Saturation (94-97) % Chloride (98-107) mmol/L Carbon Dioxide (22-30) mmol/L BUN (9-20) mg/dL Glucose (74-99) mg/dL POC Glucose (mg/dL) (75-99) mg/dL Plasma Lactic Acid Dipesh (0.7-2.0) mmol/L Calcium (8.4-10.2) mg/dL Total Protein (6.3-8.2) g/dL Albumin (3.5-5.0) g/dL Ur Specific [place] (1.001-1.035) Urine Protein (Negative) Urine Blood (Negative) Urine RBC (0-5) /hpf Urine Bacteria (None) /hpf Hyaline Casts (0-2) /lpf Urine Mucus (None) /hpf Urine Opiates Screen (NotDetected) Microbiology - Last 24 Hours (Table) 04/20/21 02:45 Blood Culture - Preliminary Blood No Growth after 24 hours 04/20/21 02:30 Blood Culture - Preliminary Blood No Growth after 24 hours
[2021-04-21] MEDS ORDERED: MVI, ADULT NO.4 WITH VIT K 10 ML, TRACE (CONC-1ML/DOSE) 1 ML in AMINO ACID 5%-D15W+LYTE... IV ONE ×3 (14:00)
[2021-04-21] MEDS: CEFEPIME 2 GM in SODIUM CHLORIDE 0.9% 100 ML IVPB SCH (15:45)
[2021-04-21] MEDS ORDERED: ACETAMINOPHEN IV (For NPO) 1,000 MG in EMPTY BAG 1 BAG IVPB PRN (18:00)
--- NOTE | 2021-04-21 19:23 | P.PN ---
Subjective Progress Note Date: 04/21/21 40-year-old male who presented to the emergency room with complaints of abdominal distention and pain. Computed tomography scan had shown dilated large bowel and stricture in the mid sigmoid colon. An NG tube was inserted. The patient was quite ill, he had a leukocytosis and the patient also had lactic acidosis with a high as lactic acid level of 6.1. At that point, the patient was taken to the operating room and the patient underwent decompression of the colon and small bowel with a diverticular source loop colostomy. Postop, the patient was brought into the intensive care unit Patient is status post decompression of colon and small bowel with diverting transverse loop colostomy for sigmoid colon obstruction and massive colonic and small bowel dilatation. Postop day #1. Patient remains in the ICU. He is intubated and sedated. No stool from ostomy. NG tube with minimal output. Patient has been febrile with a T-max of 101.8 and tachycardic with BP on the lower side. He is not on any vasopressors. WBC has decreased from 34.3-11.0 Hgb 14.1 platelets 277 sodium 140 potassium 4.7 CO2 16 BUN 14 creatinine 1.04 Objective - Vital Signs Vital signs: Vital Signs Temp 100.2 F H 04/21/21 08:00 Pulse 126 H 04/21/21 09:30 Resp 22 04/21/21 09:30 BP 105/73 04/21/21 09:30 Pulse Ox 95 04/21/21 09:30 Intake & Output 04/20/21 04/21/21 04/21/21 18:59 06:59 18:59 Intake Total 2150 6043.457 575.356 Output Total 1930 735 270 Balance 220 5308.457 305.356 Weight 131 kg Intake: IV 2150 1100 150 Lactated Ringers 1,000 ml 1100 @ 0 mls/hr IV .[facility] Rx#:[id number] Sodium Chloride 0.9% 1, 150 000 ml @ 150 mls/hr IV . Q6H40M [facility] Rx#:[id number] Intake, IV Titration 4943.457 425.356 Amount Levofloxacin 750Mg-D5w 150 Pmx 750 mg In Dextrose/ Water 1 150ml.bag @ 100 mls/hr IVPB HS [facility] Rx#: [id number] Sodium Chloride 0.9% 1, 300 300 000 ml @ 150 mls/hr IV . Q6H40M [facility] Rx#:[id number] Sodium Chloride 0.9% 2, 2000 000 ml @ 999 mls/hr IV . Q2H1M [facility] Rx#:[id number] Sodium Chloride 0.9% 2, 2000 000 ml @ 999 mls/hr IV . Q2H1M [facility] Rx#:[id number] fentaNYL (PF). 1,000 mcg 69.973 In Sodium Chloride 0.9% 80 ml @ 0.5 MCG/KG/HR 5. 897 mls/hr IV .[id number] [facility] Rx#:[id number] metroNIDAZOLE-NS PMX 500 100 mg In Saline 1 100ml.bag @ 100 mls/hr IVPB Q8H [facility] Rx#:[id number] propofoL 1,000 mg In 323.484 125.356 Empty Bag 1 bag @ Titrate IV .Q0M [facility] Rx#: [id number] Output: Gastric Drainage 850 Urine 1040 735 270 Estimated Blood Loss 40 Other: Voiding Method Indwelling Catheter Indwelling Catheter - Exam GENERAL EXAM: Sedated, and intubated EYES: Normal reaction of pupils, equal size. Conjunctiva pink, sclera white. NECK: No masses, no JVD, no thyroid enlargement, no adenopathy. CHEST: No chest wall deformity. Symmetrical expansion. LUNGS: Equal air entry with no crackles, wheeze, rhonchi or dullness. CVS: Regular rate and rhythm, normal S1 and S2, no gallops, no murmurs, no rubs. Patient is in sinus mechanism, tachycardic with a rate of 125 BPM ABDOMEN: Distended, but nontender, absent bowel sounds, mid abdominal incision is clean dry and intact, irineo are intact EXTREMITIES: No clubbing, no edema, no cyanosis, 2+ pulses and upper and lower extremities. MUSCULOSKELETAL: Muscle strength and tone normal. CENTRAL NERVOUS SYSTEM: Sedated, intubated. No focal deficits, tone is normal in all 4 extremities. - Labs CBC & Chem 7: 04/21/21 05:58 04/21/21 04:32 Labs: Abnormal Lab Results - Last 24 Hours (Table) 04/20/21 04/20/21 04/20/21 Range/Units 05:21 09:54 12:47 WBC (3.8-10.6) k/uL Neutrophils # 29.8 H (1.3-7.7) k/uL Neutrophils # (Manual) 30.10 H (1.3-7.7) k/uL Lymphocytes # 0.4 L (1.0-4.8) k/uL Monocytes # 3.4 H (0-1.0) k/uL Monocytes # (Manual) 4.12 H (0-1.0) k/uL ABG pH (7.35-7.45) ABG pO2 (83-108) mmHg ABG HCO3 (21-25) mmol/L ABG O2 Saturation (94-97) % Chloride (98-107) mmol/L Carbon Dioxide (22-30) mmol/L BUN (9-20) mg/dL Glucose (74-99) mg/dL POC Glucose (mg/dL) (75-99) mg/dL Plasma Lactic Acid Dipesh 5.1 H* 2.8 H* (0.7-2.0) mmol/L Calcium (8.4-10.2) mg/dL Total Protein (6.3-8.2) g/dL Albumin (3.5-5.0) g/dL Ur Specific [place] (1.001-1.035) Urine Protein (Negative) Urine Blood (Negative) Urine RBC (0-5) /hpf Urine Bacteria (None) /hpf Hyaline Casts (0-2) /lpf Urine Mucus (None) /hpf Urine Opiates Screen (NotDetected) 04/20/21 04/20/21 04/20/21 Range/Units 16:34 18:50 19:44 WBC (3.8-10.6) k/uL Neutrophils # (1.3-7.7) k/uL Neutrophils # (Manual) (1.3-7.7) k/uL Lymphocytes # (1.0-4.8) k/uL Monocytes # (0-1.0) k/uL Monocytes # (Manual) (0-1.0) k/uL ABG pH (7.35-7.45) ABG pO2 (83-108) mmHg ABG HCO3 (21-25) mmol/L ABG O2 Saturation (94-97) % Chloride (98-107) mmol/L Carbon Dioxide (22-30) mmol/L BUN (9-20) mg/dL Glucose (74-99) mg/dL POC Glucose (mg/dL) 197 H 128 H (75-99) mg/dL Plasma Lactic Acid Dipesh 2.4 H* (0.7-2.0) mmol/L Calcium (8.4-10.2) mg/dL Total Protein (6.3-8.2) g/dL Albumin (3.5-5.0) g/dL Ur Specific [place] (1.001-1.035) Urine Protein (Negative) Urine Blood (Negative) Urine RBC (0-5) /hpf Urine Bacteria (None) /hpf Hyaline Casts (0-2) /lpf Urine Mucus (None) /hpf Urine Opiates Screen (NotDetected) 04/20/21 04/20/21 04/21/21 Range/Units 19:54 22:05 04:32 WBC (3.8-10.6) k/uL Neutrophils # (1.3-7.7) k/uL Neutrophils # (Manual) (1.3-7.7) k/uL Lymphocytes # (1.0-4.8) k/uL Monocytes # (0-1.0) k/uL Monocytes # (Manual) (0-1.0) k/uL ABG pH 7.29 L (7.35-7.45) ABG pO2 136 H (83-108) mmHg ABG HCO3 20 L (21-25) mmol/L ABG O2 Saturation 98.7 H (94-97) % Chloride 118 H (98-107) mmol/L Carbon Dioxide 16 L (22-30) mmol/L BUN 42 H (9-20) mg/dL Glucose 152 H (74-99) mg/dL POC Glucose (mg/dL) (75-99) mg/dL Plasma Lactic Acid Dipesh (0.7-2.0) mmol/L Calcium 6.6 L (8.4-10.2) mg/dL Total Protein 4.5 L (6.3-8.2) g/dL Albumin 2.2 L (3.5-5.0) g/dL Ur Specific [place] 1.037 H (1.001-1.035) Urine Protein 1+ H (Negative) Urine Blood Small H (Negative) Urine RBC 12 H (0-5) /hpf Urine Bacteria Rare H (None) /hpf Hyaline Casts 24 H (0-2) /lpf Urine Mucus Rare H (None) /hpf Urine Opiates Screen Detected H (NotDetected) 04/21/21 04/21/21 Range/Units 05:49 05:58 WBC 11.0 H (3.8-10.6) k/uL Neutrophils # (1.3-7.7) k/uL Neutrophils # (Manual) (1.3-7.7) k/uL Lymphocytes # (1.0-4.8) k/uL Monocytes # (0-1.0) k/uL Monocytes # (Manual) (0-1.0) k/uL ABG pH 7.31 L (7.35-7.45) ABG pO2 134 H (83-108) mmHg ABG HCO3 20 L (21-25) mmol/L ABG O2 Saturation 97.5 H (94-97) % Chloride (98-107) mmol/L Carbon Dioxide (22-30) mmol/L BUN (9-20) mg/dL Glucose (74-99) mg/dL POC Glucose (mg/dL) (75-99) mg/dL Plasma Lactic Acid Dipesh (0.7-2.0) mmol/L Calcium (8.4-10.2) mg/dL Total Protein (6.3-8.2) g/dL Albumin (3.5-5.0) g/dL Ur Specific [place] (1.001-1.035) Urine Protein (Negative) Urine Blood (Negative) Urine RBC (0-5) /hpf Urine Bacteria (None) /hpf Hyaline Casts (0-2) /lpf Urine Mucus (None) /hpf Urine Opiates Screen (NotDetected) Microbiology - Last 24 Hours (Table) 04/20/21 02:45 Blood Culture - Preliminary Blood No Growth after 24 hours 04/20/21 02:30 Blood Culture - Preliminary Blood No Growth after 24 hours Assessment and Plan Assessment: 1. Acute bowel obstruction with massive colonic and small bowel distention/ toxic megacolon. - patient underwent emergent decompression of the colon and small bowel along with diverting transverse loop colostomy on 04/20/2021. The patient is currently postop day #1. 2. Acute hypoxic respiratory failure related to possible sepsis secondary to acute intra-abdominal process with the possibility of sigmoid obstruction and severe abdominal distention. The patient is currently on mechanical ventilator. The patient was kept on a mechanical ventilator postop. No weaning trials today 3. Acute leukocytosis/ Sepsis; current antibiotics Flagyl and Zosyn; ID recommending to switch to IV Cefepime 4. Acute lactic acidosis/ Hyperchloremic non-anion gap metabolic acidosis, related to massive fluid resuscitation with 0.9 normal saline 5. Bronchial asthma; continue with bronchodilators DVT Prophylaxis; SCDs/ SQ Lovenox CODE STATUS; FULL CODE
[2021-04-22] MEDS: CEFEPIME 2 GM in SODIUM CHLORIDE 0.9% 100 ML IVPB SCH ×4 (00:24→23:34)
[2021-04-22] MEDS: NOREPINEPHRINE 8 MG in SODIUM CHLORIDE 0.9% 250 ML IV SCH ×2 (03:23→23:04)
[2021-04-22] MEDS: metroNIDAZOLE-NS PMX 500 MG in SALINE 1 100ML.BAG IVPB SCH ×3 (04:33→19:46)
[2021-04-22] MEDS: fentaNYL (PF). 1,000 MCG in SODIUM CHLORIDE 0.9% 80 ML IV SCH (05:10)
[2021-04-22 06:22] LABS: Basophils % (A) 0 %; Eosinophils # (A) 0.1 k/uL (0-0.7); Eosinophils % (A) 1 %; HCT 33.9 % (39.0-53.0); HGB 11.6 gm/dL (13.0-17.5); Lymphocytes # (A) 1.5 k/uL (1.0-4.8); Lymphocytes % (A) 16 %; MCH 30.8 pg (25.0-35.0); MCHC 34.2 g/dL (31.0-37.0); MCV 90.1 fL (80.0-100.0); Mean Platelet Volume 7.2; Monocytes # (A) 0.4 k/uL (0-1.0); Monocytes % (A) 5 %; Neutrophils # (A) 6.7 k/uL (1.3-7.7); Neutrophils % (A) 75 %; Platelet Count 204 k/uL (150-450); RBC 3.76 m/uL (4.30-5.90); RDW 13.6 % (11.5-15.5); WBC 8.9 k/uL (3.8-10.6)
[2021-04-22 06:27] LABS: ABG Base Excess 6.2 mmol/L; ABG HCO3 30 mmol/L (21-25); ABG Oxygen Saturation 97.5 % (94-97); ABG PCO2 45 mmHg (35-45); ABG PH 7.44 (7.35-7.45); ABG PO2 125 mmHg (83-108); ABG TCO2 32 mmol/L (19-24)
[2021-04-22 06:33] LABS: Allen Test Performed? No
[2021-04-22 06:47] LABS: Ionized Calcium 4.7 mg/dL (4.5-5.3)
[2021-04-22 06:59] LABS: ALT 16 U/L (4-49); AST 30 U/L (17-59); African American GFR (CKD) >90 (>60 ml/min/1.73 sqM); Alkaline Phosphatase 74 U/L (38-126); Anion Gap 2 mmol/L; Blood Urea Nitrogen 22 mg/dL (9-20); Calcium 7.3 mg/dL (8.4-10.2); Carbon Dioxide 26 mmol/L (22-30); Chloride 113 mmol/L (98-107); Glucose 158 mg/dL (74-99); Magnesium 2.6 mg/dL (1.6-2.3); Non-African American GFR(CKD) >90 (>60 ml/min/1.73 sqM); Phosphorus 1.3 mg/dL (2.5-4.5); Potassium 3.6 mmol/L (3.5-5.1); Sodium 141 mmol/L (137-145); Total Bilirubin 0.2 mg/dL (0.2-1.3); Total Protein 4.1 g/dL (6.3-8.2)
[2021-04-22] MEDS ORDERED: Potassium Replacement Protocol 1 EACH MISC MISCELLANE PRN (08:02)
[2021-04-22] MEDS: PANTOPRAZOLE 40 MG/10 ML VIAL IVP SCH (08:04)
[2021-04-22] MEDS: ENOXAPARIN 40 MG/0.4 ML SYRINGE SQ SCH (08:04)
[2021-04-22] MEDS: CHLORHEXIDINE GLUCONATE 15 ML CUP MUCOUS MEM SCH ×2 (08:04→19:37)
[2021-04-22] MEDS ORDERED: POTASSIUM CHLORIDE 10 MEQ in WATER FOR INJECTION 1 100ML.BAG IVPB SCH (08:15)
--- NOTE | 2021-04-22 09:20 | P.PN ---
Subjective Progress Note Date: 04/22/21 this is a 40-year-old male patientpresented to the hospital because of abdominal pain and distention. The patient had [id number] amount of bloating. He has been constipated and he was taken max citrate on outpatient basis. He had a bout of emesis prior to him coming to the hospital. His last colonoscopy was in December 2019 and was essentially a poor prep and there was some mild narrowing of the sigmoid colon extending from 30 cm from the anal verge with mild mucosal thickening and erythema suspicious for diverticular related complications.The patient had a CAT scan of the abdomen that showed dilated small and large bowel. An NG tube was inserted. The patient was quite ill, he had a leukocytosis and the patient also had lactic acidosis with a high as lactic acid level of 6.1. At that point, the patient was taken to the operating room and the patient underwent decompression of the colon and small bowel with a diverticular source loop colostomy. Postop, the patient was brought into the intensive care unit.intraoperatively, the patient was found to have significant small bowel and colonic distention. The small bowel was decompressed first. The enterotomy was closed using a TX 60 stapler. Next the transverse colon was found. He was massively dilated. A suitable spot for a loop colostomy was found. And then the decompressive colostomy was treated. The colon was decompressed and the enterotomy is closed using the TX 60 stapler. The patient appeared to have a colonic obstruction at the sigmoid colon. Due to the massive distention of the bowel was decided not to perform resection. The colostomy brought up in the left upper quadrant. The patient is currently intubated on a mechanical ventilator. In the ICU, the patient was started on propofol for sedation. Currently is on 70 mcg/kg per minute of propofol infusion. At the same time, the patient is sitting the left for pain control. NG tube is in place and output is minimal at this point in time. Surgical wound site is dry clean and intact. Abdomen remains somewhat distended. Bowel sounds are absent. He is on a mechanical ventilator. I have an assist-control mode with a rate of 24, tidal volume of 500, FiO2 100% and PEEP of 5. Chest x-ray showed smaller lung volumes and the patient had an orotracheal tube in place. A triple catheter was also inserted through the left IJ. OG tube is in a good location. Patient is ALLERGIC to penicillin. We'll decide on a combination of Levaquin and Flagyl. He is on no pressors for now. He'll be also fluid resuscitated. Awaiting blood gases and further repeat labs postop. 04/22/2021, the patient remains intubated on a mechanical ventilator. This mo rning he is on propofol running at 20 mcg/kg per minute and the patient is also on fentanyl running at 1 melquiades per kilogram per minute. His IV fluids are in the form of bicarb infusion at the rate of 100 mL an hour. He is well sedated and is very much suspicious for mechanical ventilator. He remains on assist control mode and the patient is at a rate of 22, tidal volume of 550, FiO2 of 60% with a PEEP of 5. Chest x-ray shows some limited atelectatic changes in lung bases bilaterally. No significant orotracheal secretions. Orotracheal tube is in place. NG tube is also in place. Output from the NG tube is minimal at this point in time. The blood gases from today shows a pH of 7.44 with a pCO2 of 45 and pO2 125. This was on FiO2 of 60%. His white cell count is down to 8.9. The patient is hemodynamically stable and the patient is on no pressors. There was a drop in hemoglobin down to 11.6. Renal function stable. Electrodes are all within normal limits. Serum bicarb came up to 26. Lactic acid level is down to 1.3. Abdomen is slightly distended. No output in his colostomy bag. Bowel sounds are still very much hypoactive. Surgical wound site is dry clean and intact. Cultures are all negative and the patient remains on IV cefepime as an empiric antibiotic coverage for now. He was also started on TPN for nutritional support. The patient is on Lovenox for DVT prophylaxis. Objective - Vital Signs Vital signs: Vital Signs Temp 98.6 F 04/22/21 04:00 Pulse 105 H 04/22/21 07:00 Resp 22 04/22/21 07:00 BP 115/67 04/22/21 07:00 Pulse Ox 97 04/22/21 07:00 Intake & Output 04/21/21 04/22/21 04/22/21 18:59 06:59 18:59 Intake Total 3987.218 0319.924 145.225 Output Total 1580 755 55 Balance 414.147 952.924 90.225 Weight 131 kg 134 kg Intake: IV 1200 1100 100 Dextrose 5% in Water 1, 900 1100 100 000 ml @ 100 mls/hr IV . [id number] [facility] with Sod Bicarb Syr 8.4% (1 Meq/ml ) 150 ml Rx#:[id number] Sodium Chloride 0.9% 1, 300 000 ml @ 150 mls/hr IV . Q6H40M [facility] Rx#:[id number] Intake, IV Titration 794.147 607.924 45.225 Amount Sodium Chloride 0.9% 1, 300 000 ml @ 150 mls/hr IV . Q6H40M [facility] Rx#:[id number] fentaNYL (PF). 1,000 mcg 94.147 180.585 In Sodium Chloride 0.9% 80 ml @ 0.5 MCG/KG/HR 5. 897 mls/hr IV .[id number] [facility] Rx#:[id number] propofoL 1,000 mg In 400.000 427.339 45.225 Empty Bag 1 bag @ Titrate IV .Q0M [facility] Rx#: [id number] Output: Urine 1280 755 55 Stool 300 Other: Voiding Method Indwelling Catheter Indwelling Catheter - Exam obese,On a mechanical ventilator and the patient is currently sedated with propofol. His body mass index is 37.3. Orotracheal tube and orogastric tube are both in place. Head exam was generally normal. There was no scleral icterus or corneal arcus. Mucous membranes were moist. Neck was supple and without jugular venous distension, thyromegaly, or carotid bruits. Carotids were easily palpable bilaterally. There was no adenopathy. Lungs were clear to auscultation and percussion, and with normal diaphragmatic excursion. No wheezes or rales were noted. Cardiac exam revealed the PMI to be normally situated and sized. The rhythm was regular and no extrasystoles were noted during several minutes of auscultation. The first and second heart sounds were normal and physiologic splitting of the second heart sound was noted. There were no murmurs, rubs, clicks, or gallops. Abdomen is distended. Bowel sounds are absent. Surgical site is dry clean and intact. Colostomy site is noted in the tissue is viable at this point in time. Examination of the extremities revealed easily palpable radial, femoral and pedal pulses. There was no cyanosis, clubbing or edema. Examination of the skin revealed no evidence of significant rashes, suspicious appearing nevi or other concerning lesions. Neurologic the patient sedated - Labs CBC & Chem 7: 04/22/21 05:20 04/22/21 05:20 Labs: Abnormal Lab Results - Last 24 Hours (Table) 04/21/21 04/22/21 04/22/21 Range/Units 04:32 05:20 05:20 RBC 3.76 L (4.30-5.90) m/uL Hgb 11.6 L (13.0-17.5) gm/dL Hct 33.9 L (39.0-53.0) % ABG pO2 (83-108) mmHg ABG HCO3 (21-25) mmol/L ABG Total CO2 (19-24) mmol/L ABG O2 Saturation (94-97) % Chloride 113 H (98-107) mmol/L BUN 22 H (9-20) mg/dL Glucose 158 H (74-99) mg/dL Calcium 7.3 L (8.4-10.2) mg/dL Phosphorus 1.3 L (2.5-4.5) mg/dL Magnesium 2.6 H (1.6-2.3) mg/dL Total Protein 4.1 L (6.3-8.2) g/dL Albumin 2.0 L (3.5-5.0) g/dL Triglycerides 485.00 H (0.00-149.00) mg/dL 04/22/21 Range/Units 05:55 RBC (4.30-5.90) m/uL Hgb (13.0-17.5) gm/dL Hct (39.0-53.0) % ABG pO2 125 H (83-108) mmHg ABG HCO3 30 H (21-25) mmol/L ABG Total CO2 32 H (19-24) mmol/L ABG O2 Saturation 97.5 H (94-97) % Chloride (98-107) mmol/L BUN (9-20) mg/dL Glucose (74-99) mg/dL Calcium (8.4-10.2) mg/dL Phosphorus (2.5-4.5) mg/dL Magnesium (1.6-2.3) mg/dL Total Protein (6.3-8.2) g/dL Albumin (3.5-5.0) g/dL Triglycerides (0.00-149.00) mg/dL Microbiology - Last 24 Hours (Table) 04/20/21 02:30 Blood Culture - Preliminary Blood No Growth after 48 hours 04/20/21 02:45 Blood Culture - Preliminary Blood No Growth after 48 hours 04/20/21 21:35 Urine Culture - Preliminary Urine,Catheterized Assessment and Plan Plan: 1 acute bowel obstruction with massive colonic and small bowel distention and dilatation with abdominal pain and signs of toxic megacolon. The patient und erwent emergent decompression of the colon and small bowel along with diverting transverse loop colostomy. The patient is currently postop day #2 on today's evaluation, the patient is hemodynamically stable. Acidosis is improved and the lactic acidosis is normalized. Hemodynamically stable on no pressors. He remains on a mechanical ventilator for now. 2 sigmoid colon obstruction, consider possibility of diverticular complications. 3 acute hypoxic respiratory failure. The patient is currently the baby mechanical ventilator. The patient was kept on a mechanical ventilator postop. Chest x-ray was noted and the blood gases was noted. FiO2 will be dropped down to 40%. Following that, the patient will be taken off sedation and his weaning parameters need to be checked and his assessment and readiness to wean will be done. 4 acute leukocytosis secondary to above, stable and the patient remains on a combination of cefepime and Flagyl 5 acute lactic acidosis secondary to above, recovered 6 obesity with a BMI of 37.3 7 history of diverticular disease 8 history of bronchial asthma Plan Continue vent support and drop the FiO2 down to 40% Stop the sedation and assess the patient's ability to wean and check weaning parameters Possible extubation today This continue the bicarb infusion and put the patient on a normal saline at the rate of 50 mL an hour and continue TPN for nutritional support Monitor colostomy site Cover the patient with accommodation cefepime and Flagyl Monitor urine output Blood cultures Monitor the lactic acid levels, levels have improved Lovenox for DVT prophylaxis We'll continue to follow. Condition is critical for the time being. Currently care evaluation, time more than 30 minutes. [place] extubation today depending on his weaning parameters and his sedation holiday. Time with Patient: Greater than 30
--- NOTE | 2021-04-22 09:30 | P.PN ---
Subjective Progress Note Date: 04/22/21 Principal diagnosis: Colonic stricture Patient remains on the ventilator. He is tachycardic. White blood cell count improved at 8.9, hemoglobin 11.6. Patient is arousable. Objective - Vital Signs Vital signs: Vital Signs Temp 98.6 F 04/22/21 04:00 Pulse 105 H 04/22/21 07:00 Resp 22 04/22/21 07:00 BP 115/67 04/22/21 07:00 Pulse Ox 97 04/22/21 07:00 Intake & Output 04/21/21 04/22/21 04/22/21 18:59 06:59 18:59 Intake Total 5020.362 5417.924 160.122 Output Total 1580 755 55 Balance 414.147 952.924 105.122 Weight 131 kg 134 kg Intake: IV 1200 1100 100 Dextrose 5% in Water 1, 900 1100 100 000 ml @ 100 mls/hr IV . [id number] [facility] with Sod Bicarb Syr 8.4% (1 Meq/ml ) 150 ml Rx#:[id number] Sodium Chloride 0.9% 1, 300 000 ml @ 150 mls/hr IV . Q6H40M [facility] Rx#:[id number] Intake, IV Titration 794.147 607.924 60.122 Amount Sodium Chloride 0.9% 1, 300 000 ml @ 150 mls/hr IV . Q6H40M [facility] Rx#:[id number] fentaNYL (PF). 1,000 mcg 94.147 180.585 In Sodium Chloride 0.9% 80 ml @ 0.5 MCG/KG/HR 5. 897 mls/hr IV .[id number] [facility] Rx#:[id number] propofoL 1,000 mg In 400.000 427.339 60.122 Empty Bag 1 bag @ Titrate IV .Q0M [facility] Rx#: [id number] Output: Urine 1280 755 55 Stool 300 Other: Voiding Method Indwelling Catheter Indwelling Catheter - Exam Abdomen: Soft, distended, incision clean and dry, ostomy without significant output - Labs CBC & Chem 7: 04/22/21 05:20 04/22/21 05:20 Labs: Abnormal Lab Results - Last 24 Hours (Table) 04/21/21 04/22/21 04/22/21 Range/Units 04:32 05:20 05:20 RBC 3.76 L (4.30-5.90) m/uL Hgb 11.6 L (13.0-17.5) gm/dL Hct 33.9 L (39.0-53.0) % ABG pO2 (83-108) mmHg ABG HCO3 (21-25) mmol/L ABG Total CO2 (19-24) mmol/L ABG O2 Saturation (94-97) % Chloride 113 H (98-107) mmol/L BUN 22 H (9-20) mg/dL Glucose 158 H (74-99) mg/dL Calcium 7.3 L (8.4-10.2) mg/dL Phosphorus 1.3 L (2.5-4.5) mg/dL Magnesium 2.6 H (1.6-2.3) mg/dL Total Protein 4.1 L (6.3-8.2) g/dL Albumin 2.0 L (3.5-5.0) g/dL Triglycerides 485.00 H (0.00-149.00) mg/dL 04/22/21 Range/Units 05:55 RBC (4.30-5.90) m/uL Hgb (13.0-17.5) gm/dL Hct (39.0-53.0) % ABG pO2 125 H (83-108) mmHg ABG HCO3 30 H (21-25) mmol/L ABG Total CO2 32 H (19-24) mmol/L ABG O2 Saturation 97.5 H (94-97) % Chloride (98-107) mmol/L BUN (9-20) mg/dL Glucose (74-99) mg/dL Calcium (8.4-10.2) mg/dL Phosphorus (2.5-4.5) mg/dL Magnesium (1.6-2.3) mg/dL Total Protein (6.3-8.2) g/dL Albumin (3.5-5.0) g/dL Triglycerides (0.00-149.00) mg/dL Microbiology - Last 24 Hours (Table) 04/20/21 02:30 Blood Culture - Preliminary Blood No Growth after 48 hours 04/20/21 02:45 Blood Culture - Preliminary Blood No Growth after 48 hours 04/20/21 21:35 Urine Culture - Preliminary Urine,Catheterized Assessment and Plan (1) Colonic stricture Narrative/Plan: 40-year-old male with colonic stricture. Seems to be gradually improving after recent loop transverse colostomy. Continue ventilatory support. Possible weaning per pulmonary. Keep nothing by mouth. Monitor ostomy output. Current Visit: Yes Status: Acute Code(s): K56.699 - OTHER INTESTNL OBST UNSP TO PARTIAL VERSUS COMPLETE OBST SNOMED Code(s): 2631344
--- NOTE | 2021-04-22 09:40 | XR ---
EXAMINATION TYPE: XR chest 1V portable DATE OF EXAM: 04/22/2021 COMPARISON: 04/21/2021 INDICATION: Tube placement TECHNIQUE: Single frontal view of the chest is obtained. FINDINGS: The heart size is normal. The pulmonary vasculature is normal. Mild left lower lobe infiltrate is present. A small left pleural effusion may be present. Endotracheal tube tip is above the mayela. Nasogastric tube transverses the thorax. The central venou s catheter is present with tip directed towards the right subclavian vein.. No pneumothorax is eviden t. Positioning is stable from comparison. IMPRESSION: 1. Mild left lower lobe infiltrate with small left pleural effusion. 2. Lines and catheters discussed above appear stable in comparison. Left central venous catheter tip directed towards the right subclavian vein is unchanged in position.
[2021-04-22] MEDS: SODIUM CHLORIDE 0.9% 1,000 ML IV SCH ×2 (09:53→23:34)
[2021-04-22] MEDS: POTASSIUM PHOSPHATE 10 MMOL in SODIUM CHLORIDE 0.9% 100 ML IV SCH ×3 (09:53→14:13)
[2021-04-22] MEDS: DEXTROSE 5% IN WATER 1,000 ML with SOD BICARB SYR 8.4% (1 MEQ/ML) 150 ML IV SCH (12:13)
[2021-04-22 17:48] LABS: Glucose,Whole Blood 126 mg/dL (75-99)
[2021-04-22] MEDS: POTASSIUM PHOSPHATE IV SCH ×6 (18:30)
[2021-04-22] MEDS: SODIUM ACETATE IV SCH ×6 (18:30)
[2021-04-22] MEDS: [UNRECOGNIZED DRUG - OTHER] IV SCH ×6 (18:30)
[2021-04-22] MEDS: CALCIUM GLUCONATE IV SCH ×6 (18:30)
--- NOTE | 2021-04-22 21:36 | PN ---
PROGRESS NOTE DATE OF SERVICE: 04/22/2021 REASON FOR FOLLOWUP: Fever, abdominal source. INTERVAL HISTORY: The patient is afebrile. The patient has been extubated. The patient is breathing comfortably. Complaining of some abdominal pain. No . No chest pain, shortness of breath or cough. PHYSICAL EXAMINATION: Blood pressure is 176/94, pulse of 113, temperature 98. He is 94% on 4 L nasal cannula. General description is a middle-aged male lying in bed in no distress. Respiratory system: Unlabored breathing, decreased breath sounds in the bases. No wheeze. Heart S1, S2. Regular rate and rhythm. Abdomen soft, mildly distended. No guarding or rigidity. LABS: Hemoglobin is 11.3, white count 8.9, BUN of 22, creatinine 0.81. DIAGNOSTIC IMPRESSION AND PLAN: Patient admitted to hospital with abdominal sepsis in this patient who did have abdominal , status post diverting colostomy. Patient did subsequently spike a fever, did have PENICILLIN ALLERGY, covered with cefepime and Flagyl; to continue while monitoring his clinical course closely. Continue with supportive care. MMODL / IJN: [id number] /
[2021-04-22] MEDS: ALBUTEROL HFA INHALER INHALATION PRN (22:08)
[2021-04-23] MEDS: ALBUTEROL HFA INHALER INHALATION PRN ×4 (01:49→21:41)
[2021-04-23] MEDS: metroNIDAZOLE-NS PMX 500 MG in SALINE 1 100ML.BAG IVPB SCH ×3 (03:24→19:48)
[2021-04-23] MEDS: HYDROmorphone 1 MG/ML 1 ML SYRINGE IVP PRN (05:13)
[2021-04-23 08:10] LABS: Basophils % (A) 0 %; Eosinophils # (A) 0.1 k/uL (0-0.7); Eosinophils % (A) 0 %; HCT 37.3 % (39.0-53.0); HGB 12.2 gm/dL (13.0-17.5); Lymphocytes # (A) 1.2 k/uL (1.0-4.8); Lymphocytes % (A) 7 %; MCH 30.2 pg (25.0-35.0); MCHC 32.7 g/dL (31.0-37.0); MCV 92.3 fL (80.0-100.0); Mean Platelet Volume 6.9; Monocytes # (A) 0.9 k/uL (0-1.0); Monocytes % (A) 5 %; Neutrophils # (A) 14.1 k/uL (1.3-7.7); Neutrophils % (A) 86 %; Platelet Count 265 k/uL (150-450); RBC 4.04 m/uL (4.30-5.90); RDW 13.2 % (11.5-15.5); WBC 16.5 k/uL (3.8-10.6)
--- NOTE | 2021-04-23 08:46 | P.PN ---
Subjective Progress Note Date: 04/23/21 this is a 40-year-old male patientpresented to the hospital because of abdominal pain and distention. The patient had [id number] amount of bloating. He has been constipated and he was taken max citrate on outpatient basis. He had a bout of emesis prior to him coming to the hospital. His last colonoscopy was in December 2019 and was essentially a poor prep and there was some mild narrowing of the sigmoid colon extending from 30 cm from the anal verge with mild mucosal thickening and erythema suspicious for diverticular related complications.The patient had a CAT scan of the abdomen that showed dilated small and large bowel. An NG tube was inserted. The patient was quite ill, he had a leukocytosis and the patient also had lactic acidosis with a high as lactic acid level of 6.1. At that point, the patient was taken to the operating room and the patient underwent decompression of the colon and small bowel with a diverticular source loop colostomy. Postop, the patient was brought into the intensive care unit.intraoperatively, the patient was found to have significant small bowel and colonic distention. The small bowel was decompressed first. The enterotomy was closed using a TX 60 stapler. Next the transverse colon was found. He was massively dilated. A suitable spot for a loop colostomy was found. And then the decompressive colostomy was treated. The colon was decompressed and the enterotomy is closed using the TX 60 stapler. The patient appeared to have a colonic obstruction at the sigmoid colon. Due to the massive distention of the bowel was decided not to perform resection. The colostomy brought up in the left upper quadrant. The patient is currently intubated on a mechanical ventilator. In the ICU, the patient was started on propofol for sedation. Currently is on 70 mcg/kg per minute of propofol infusion. At the same time, the patient is sitting the left for pain control. NG tube is in place and output is minimal at this point in time. Surgical wound site is dry clean and intact. Abdomen remains somewhat distended. Bowel sounds are absent. He is on a mechanical ventilator. I have an assist-control mode with a rate of 24, tidal volume of 500, FiO2 100% and PEEP of 5. Chest x-ray showed smaller lung volumes and the patient had an orotracheal tube in place. A triple catheter was also inserted through the left IJ. OG tube is in a good location. Patient is ALLERGIC to penicillin. We'll decide on a combination of Levaquin and Flagyl. He is on no pressors for now. He'll be also fluid resuscitated. Awaiting blood gases and further repeat labs postop. 04/22/2021, the patient remains intubated on a mechanical ventilator. This mo rning he is on propofol running at 20 mcg/kg per minute and the patient is also on fentanyl running at 1 melquiades per kilogram per minute. His IV fluids are in the form of bicarb infusion at the rate of 100 mL an hour. He is well sedated and is very much suspicious for mechanical ventilator. He remains on assist control mode and the patient is at a rate of 22, tidal volume of 550, FiO2 of 60% with a PEEP of 5. Chest x-ray shows some limited atelectatic changes in lung bases bilaterally. No significant orotracheal secretions. Orotracheal tube is in place. NG tube is also in place. Output from the NG tube is minimal at this point in time. The blood gases from today shows a pH of 7.44 with a pCO2 of 45 and pO2 125. This was on FiO2 of 60%. His white cell count is down to 8.9. The patient is hemodynamically stable and the patient is on no pressors. There was a drop in hemoglobin down to 11.6. Renal function stable. Electrodes are all within normal limits. Serum bicarb came up to 26. Lactic acid level is down to 1.3. Abdomen is slightly distended. No output in his colostomy bag. Bowel sounds are still very much hypoactive. Surgical wound site is dry clean and intact. Cultures are all negative and the patient remains on IV cefepime as an empiric antibiotic coverage for now. He was also started on TPN for nutritional support. The patient is on Lovenox for DVT prophylaxis. 04/23/2021, the patient is extubated and the patient is being seen for a follow- up. I was able to extubate the patient yesterday without any major difficulties. I weaned him off the sedation and following that he was given a spontaneous breathing trial and he did well and subsequently was extubated to nasal cannula and currently is on oxygen at 4 L per minute nasal cannula. His respiratory status is stable. NG tube has been In place and this is still to suction. Output from the NG tube is 100 mL over the past 12 hours. The patient is afebrile. The patient remains on broad-spectrum antibiotics and the patient is currently on IV cefepime and Flagyl. Hemodynamically stable and he is on no pressors. The patient is postop day #3 as the patient underwent decompression of the colon and small bowel with a diverticular loop and this was all related to a sigmoid related stricture or complications from an earlier diverticulitis. No blood work from today. The chest x-ray from today showing cardiomegaly. No acute abnormalities are noted. The patient has no other complaints otherwise for now. Abdomen is slightly distended. Surgical with that site is dry clean and intact. And there is some limited amount of output in the colostomy bag. Objective - Vital Signs Vital signs: Vital Signs Temp 97.9 F 04/23/21 04:00 Pulse 101 H 04/23/21 07:00 Resp 10 L 04/23/21 07:00 BP 147/105 04/23/21 07:00 Pulse Ox 94 L 04/23/21 07:00 Intake & Output 04/22/21 04/23/21 04/23/21 18:59 06:59 18:59 Intake Total 1864.723 9263 75 Output Total 620 750 50 Balance 790.122 250 25 Weight 136 kg Intake: IV 200 Dextrose 5% in Water 1, 200 000 ml @ 100 mls/hr IV . [id number] [facility] with Sod Bicarb Syr 8.4% (1 Meq/ml ) 150 ml Rx#:[id number] Intake, IV Titration 0330.608 1788 75 Amount ACETAMINOPHEN IV (For NPO 0 ) 1,000 mg In Empty Bag 1 bag @ 400 mls/hr IVPB Q6HR [facility]N Rx#:[id number] Cefepime 2 gm In Sodium 100 Chloride 0.9% 100 ml @ 25 mls/hr IVPB Q8HR [facility] Rx# :[id number] Potassium Phosphate 10 200 mmol In Sodium Chloride 0 .9% 100 ml @ 50 mls/hr IV Q2H [facility] Rx#:[id number] Sodium Chloride 0.9% 1, 750 900 75 000 ml @ 75 mls/hr IV . [id number] [facility] Rx#:[id number] fentaNYL (PF). 1,000 mcg 100 In Sodium Chloride 0.9% 80 ml @ 0.5 MCG/KG/HR 5. 897 mls/hr IV .[id number] [facility] Rx#:[id number] metroNIDAZOLE-NS PMX 500 100 mg In Saline 1 100ml.bag @ 100 mls/hr IVPB Q8H [facility] Rx#:[id number] propofoL 1,000 mg In 60.122 Empty Bag 1 bag @ Titrate IV .Q0M [facility] Rx#: [id number] Output: Urine 620 750 50 Other: Voiding Method Indwelling Catheter Indwelling Catheter - Exam obese, is extubated and patient is currently on 3 L of oxygen by nasal cannula Head exam was generally normal. There was no scleral icterus or corneal arcus. Mucous membranes were moist. Neck was supple and without jugular venous distension, thyromegaly, or carotid bruits. Carotids were easily palpable bilaterally. There was no adenopathy. Lungs were clear to auscultation and percussion, and with normal diaphragmatic excursion. No wheezes or rales were noted. Cardiac exam revealed the PMI to be normally situated and sized. The rhythm was regular and no extrasystoles were noted during several minutes of auscultation. The first and second heart sounds were normal and physiologic splitting of the second heart sound was noted. There were no murmurs, rubs, clicks, or gallops. Abdomen is distended. Bowel sounds are absent. Surgical site is dry clean and intact. Colostomy site is noted in the tissue is viable at this point in time. Examination of the extremities revealed easily palpable radial, femoral and pedal pulses. There was no cyanosis, clubbing or edema. Examination of the skin revealed no evidence of significant rashes, suspicious appearing nevi or other concerning lesions. Neurologic the patient OAx3 - Labs CBC & Chem 7: 04/23/21 07:48 04/22/21 05:20 Labs: Abnormal Lab Results - Last 24 Hours (Table) 04/22/21 04/23/21 Range/Units 17:47 07:48 WBC 16.5 H (3.8-10.6) k/uL RBC 4.04 L (4.30-5.90) m/uL Hgb 12.2 L (13.0-17.5) gm/dL Hct 37.3 L (39.0-53.0) % Neutrophils # 14.1 H (1.3-7.7) k/uL POC Glucose (mg/dL) 126 H (75-99) mg/dL Microbiology - Last 24 Hours (Table) 04/20/21 02:45 Blood Culture - Preliminary Blood No Growth after 72 hours 04/20/21 02:30 Blood Culture - Preliminary Blood No Growth after 72 hours 04/20/21 21:35 Urine Culture - Final Urine,Catheterized Assessment and Plan Plan: 1 acute bowel obstruction with massive colonic and small bowel distention and dilatation with abdominal pain and signs of toxic megacolon. The patient underwent emergent decompression of the colon and small bowel along with diverting transverse loop colostomy. The patient is currently postop day #3 on today's evaluation, the patient is hemodynamically stable. Acidosis is improved and the lactic acidosis is normalized. Hemodynamically stable on no pressors. The patient was extubated yesterday without any major difficulties and the patient's abdomen is distended. His bowel sounds are very sluggish. Nevertheless, he is having output is colostomy bag in order of 100 mL over the past 12 hours. We'll monitor the abdominal distention. Keep NG tube in place for now. Keep the patient nothing by mouth and proceed with TPN for nutritional support. 2 sigmoid colon obstruction, consider possibility of diverticular complications. 3 acute hypoxic respiratory failure. The patient was extubated yesterday without any major difficulties 4 acute leukocytosis secondary to above, stable and the patient remains on a combination of cefepime and Flagyl 5 acute lactic acidosis secondary to above, recovered 6 obesity with a BMI of 37.3 7 history of diverticular disease 8 history of bronchial asthma Plan All of the blood work is still pending for now. Provide the patient incentive spirometer Current oxygen flow is at 3 L Continue TPN for nutritional support Keep NG tube in place Monitor the output from the colostomy site Continue the current antibiotic coverage which includes cefepime and Flagyl IV fluids to KVO Urinary total of 20 mg IV Lasix and the patient is having excessive swelling and edema. Monitor urine output
--- NOTE | 2021-04-23 08:47 | XR ---
EXAMINATION TYPE: XR chest 1V portable DATE OF EXAM: 04/23/2021 COMPARISON: 04/22/2021 INDICATION: Tube placement TECHNIQUE: Single frontal view of the chest is obtained. FINDINGS: The heart size is upper limits for size. The pulmonary vasculature is normal. No suspicious focal consolidation is evident. Patient's left sided catheter continues at the tip directed towards the right subclavian region. Naso gastric tube transverses the most visualized thorax, distal tip is not identified on this image. The endotracheal tube has been moved. IMPRESSION: 1. Improving basilar infiltrates. 2. Stable appearance of remaining catheters.
[2021-04-23 08:48] LABS: ALT 17 U/L (4-49); AST 35 U/L (17-59); African American GFR (CKD) >90 (>60 ml/min/1.73 sqM); Albumin 2.4 g/dL (3.5-5.0); Alkaline Phosphatase 97 U/L (38-126); Anion Gap 5 mmol/L; Blood Urea Nitrogen 18 mg/dL (9-20); Calcium 7.9 mg/dL (8.4-10.2); Carbon Dioxide 29 mmol/L (22-30); Chloride 111 mmol/L (98-107); Glucose 171 mg/dL (74-99); Magnesium 2.6 mg/dL (1.6-2.3); Non-African American GFR(CKD) >90 (>60 ml/min/1.73 sqM); Phosphorus 2.2 mg/dL (2.5-4.5); Potassium 3.4 mmol/L (3.5-5.1); Sodium 145 mmol/L (137-145); Total Bilirubin 0.3 mg/dL (0.2-1.3); Total Protein 4.8 g/dL (6.3-8.2)
[2021-04-23] MEDS ORDERED: FUROSEMIDE 10 MG/ML 4 ML VIAL IV STA (09:15)
[2021-04-23] MEDS: CEFEPIME 2 GM in SODIUM CHLORIDE 0.9% 100 ML IVPB SCH ×2 (09:36→15:23)
[2021-04-23] MEDS: PANTOPRAZOLE 40 MG/10 ML VIAL IVP SCH (09:37)
[2021-04-23] MEDS: ENOXAPARIN 40 MG/0.4 ML SYRINGE SQ SCH (09:37)
[2021-04-23] MEDS: CHLORHEXIDINE GLUCONATE 15 ML CUP MUCOUS MEM SCH ×2 (09:37→19:39)
--- NOTE | 2021-04-23 10:19 | P.PN ---
Subjective Progress Note Date: 04/23/21 Principal diagnosis: Colonic stricture Patient was extubated yesterday. Doing well today. Stool and air in the ostomy. 800 mL out of NG tube morning. Pain is improved. Objective - Vital Signs Vital signs: Vital Signs Temp 97.9 F 04/23/21 04:00 Pulse 101 H 04/23/21 07:00 Resp 10 L 04/23/21 07:00 BP 147/105 04/23/21 07:00 Pulse Ox 94 L 04/23/21 07:00 Intake & Output 04/22/21 04/23/21 04/23/21 18:59 06:59 18:59 Intake Total 3899.738 6752 75 Output Total 620 750 50 Balance 790.122 250 25 Weight 136 kg Intake: IV 200 Dextrose 5% in Water 1, 200 000 ml @ 100 mls/hr IV . [id number] [facility] with Sod Bicarb Syr 8.4% (1 Meq/ml ) 150 ml Rx#:[id number] Intake, IV Titration 3405.352 8208 75 Amount ACETAMINOPHEN IV (For NPO 0 ) 1,000 mg In Empty Bag 1 bag @ 400 mls/hr IVPB Q6HR PRN Rx#:[id number] Cefepime 2 gm In Sodium 100 Chloride 0.9% 100 ml @ 25 mls/hr IVPB Q8HR [facility] Rx# :[id number] Potassium Phosphate 10 200 mmol In Sodium Chloride 0 .9% 100 ml @ 50 mls/hr IV Q2H [facility] Rx#:[id number] Sodium Chloride 0.9% 1, 750 900 75 000 ml @ 75 mls/hr IV . [id number] [facility] Rx#:[id number] fentaNYL (PF). 1,000 mcg 100 In Sodium Chloride 0.9% 80 ml @ 0.5 MCG/KG/HR 5. 897 mls/hr IV .[id number] [facility] Rx#:[id number] metroNIDAZOLE-NS PMX 500 100 mg In Saline 1 100ml.bag @ 100 mls/hr IVPB Q8H [facility] Rx#:[id number] propofoL 1,000 mg In 60.122 Empty Bag 1 bag @ Titrate IV .Q0M [facility] Rx#: [id number] Output: Urine 620 750 50 Other: Voiding Method Indwelling Catheter Indwelling Catheter - Exam Abdomen: Soft, mild distention, dressing clean and dry, ostomy function, mild tenderness - Labs CBC & Chem 7: 04/23/21 07:48 04/23/21 07:48 Labs: Abnormal Lab Results - Last 24 Hours (Table) 04/22/21 04/23/21 04/23/21 Range/Units 17:47 07:48 07:48 WBC 16.5 H (3.8-10.6) k/uL RBC 4.04 L (4.30-5.90) m/uL Hgb 12.2 L (13.0-17.5) gm/dL Hct 37.3 L (39.0-53.0) % Neutrophils # 14.1 H (1.3-7.7) k/uL Potassium 3.4 L (3.5-5.1) mmol/L Chloride 111 H (98-107) mmol/L Creatinine 0.60 L (0.66-1.25) mg/dL Glucose 171 H (74-99) mg/dL POC Glucose (mg/dL) 126 H (75-99) mg/dL Calcium 7.9 L (8.4-10.2) mg/dL Phosphorus 2.2 L (2.5-4.5) mg/dL Magnesium 2.6 H (1.6-2.3) mg/dL Total Protein 4.8 L (6.3-8.2) g/dL Albumin 2.4 L (3.5-5.0) g/dL Microbiology - Last 24 Hours (Table) 04/20/21 02:45 Blood Culture - Preliminary Blood No Growth after 72 hours 04/20/21 02:30 Blood Culture - Preliminary Blood No Growth after 72 hours 04/20/21 21:35 Urine Culture - Final Urine,Catheterized Assessment and Plan (1) Colonic stricture Narrative/Plan: Patient seems to be doing better at this time. Keep nasogastric tube in place. Increase activity. Continue analgesics. Current Visit: Yes Status: Acute Code(s): K56.699 - OTHER INTESTNL OBST UNSP TO PARTIAL VERSUS COMPLETE OBST SNOMED Code(s): 6062992
[2021-04-23] MEDS ORDERED: POTASSIUM PHOSPHATE 10 MMOL in SODIUM CHLORIDE 0.9% 100 ML IV ONE (11:00)
[2021-04-23 11:25] LABS: Glucose,Whole Blood 158 mg/dL (75-99)
[2021-04-23] MEDS: POTASSIUM CHLORIDE 20 MEQ in WATER FOR INJECTION 1 100ML.BAG IVPB SCH ×2 (15:23→17:32)
[2021-04-23] MEDS: POTASSIUM PHOSPHATE IV SCH ×12 (15:25→15:28)
[2021-04-23] MEDS: [UNRECOGNIZED DRUG - OTHER] IV SCH ×12 (15:25→15:28)
[2021-04-23] MEDS: SODIUM ACETATE IV SCH ×12 (15:25→15:28)
[2021-04-23] MEDS: CALCIUM GLUCONATE IV SCH ×12 (15:25→15:28)
[2021-04-23] MEDS: fentaNYL (PF). 1,000 MCG in SODIUM CHLORIDE 0.9% 80 ML IV SCH (15:27)
[2021-04-23] MEDS: NOREPINEPHRINE 8 MG in SODIUM CHLORIDE 0.9% 250 ML IV SCH (17:33)
--- NOTE | 2021-04-23 20:17 | P.PN ---
Subjective Progress Note Date: 04/22/21 Principal diagnosis: Acute bowel obstruction with massive colonic and small bowel distention/ toxic megacolon. Acute hypoxic respiratory failure related to possible sepsis secondary to acute intra-abdominal process Acute leukocytosis/ Sepsis 40-year-old male who presented to the emergency room with complaints of abdominal distention and pain. Computed tomography scan had shown dilated large bowel and stricture in the mid sigmoid colon. An NG tube was inserted. The patient was quite ill, he had a leukocytosis and the patient also had lactic acidosis with a high as lactic acid level of 6.1. At that point, the patient was taken to the operating room and the patient underwent decompression of the colon and small bowel with a diverticular source loop colostomy. Postop, the patient was brought into the intensive care unit Patient is status post decompression of colon and small bowel with diverting transverse loop colostomy for sigmoid colon obstruction and massive colonic and small bowel dilatation. Postop day #1. Patient remains in the ICU. He is intubated and sedated. No stool from ostomy. NG tube with minimal output. Patient has been febrile with a T-max of 101.8 and tachycardic with BP on the lower side. He is not on any vasopressors. WBC has decreased from 34.3-11.0 Hgb 14.1 platelets 277 sodium 140 potassium 4.7 CO2 16 BUN 14 creatinine 1.04 04/22/2021 Patient remains intubated on a mechanical ventilator. Vital signs are reviewed with temperature 98.6 on postoperative 5, respiration 22 and blood pressure 115/67 Lab review reveals a drop in hemoglobin down to 11.6. Renal function stable. Electrodes are all within normal limits. Serum bicarb came up to 26. Lactic acid level is down to 1.3. NG tube is also in place. Output from the NG tube is minimal at this point in time. The blood gases from today shows a pH of 7.44 with a pCO2 of 45 and pO2 125. This was on FiO2 of 60%. His white cell count is down to 8.9. The patient is hemodynamically stable and the patient is on no pressors. There was a drop in hemoglobin down to 11.6. Renal function stable. Electrodes are all within normal limits. Serum bicarb came up to 26. Lactic acid level is down to 1.3. Abdomen is slightly distended. No output in his colostomy bag. Bowel sounds are still very much hypoactive. Surgical wound site is dry clean and intact. Cultures are all negative and the patient remains on IV cefepime as an empiric antibiotic coverage for now. He was also started on TPN for nutritional support. The patient is on Lovenox for DVT prophylaxis. Objective - Vital Signs Vital signs: Vital Signs Temp 100.7 F H 04/22/21 08:00 Pulse 113 H 04/22/21 10:00 Resp 18 04/22/21 10:00 BP 161/84 04/22/21 10:00 Pulse Ox 92 L 04/22/21 10:00 Intake & Output 04/21/21 04/22/21 04/22/21 18:59 06:59 18:59 Intake Total 1429.952 7934.924 510.122 Output Total 1580 755 195 Balance 414.147 952.924 315.122 Weight 131 kg 134 kg Intake: IV 1200 1100 200 Dextrose 5% in Water 1, 900 1100 200 000 ml @ 100 mls/hr IV . [id number] [facility] with Sod Bicarb Syr 8.4% (1 Meq/ml ) 150 ml Rx#:[id number] Sodium Chloride 0.9% 1, 300 000 ml @ 150 mls/hr IV . Q6H40M [facility] Rx#:[id number] Intake, IV Titration 794.147 607.924 310.122 Amount Potassium Phosphate 10 100 mmol In Sodium Chloride 0 .9% 100 ml @ 50 mls/hr IV Q2H [facility] Rx#:[id number] Sodium Chloride 0.9% 1, 300 000 ml @ 150 mls/hr IV . Q6H40M [facility] Rx#:[id number] Sodium Chloride 0.9% 1, 150 000 ml @ 75 mls/hr IV . [id number] [facility] Rx#:[id number] fentaNYL (PF). 1,000 mcg 94.147 180.585 In Sodium Chloride 0.9% 80 ml @ 0.5 MCG/KG/HR 5. 897 mls/hr IV .[id number] [facility] Rx#:[id number] propofoL 1,000 mg In 400.000 427.339 60.122 Empty Bag 1 bag @ Titrate IV .Q0M [facility] Rx#: [id number] Output: Urine 1280 755 195 Stool 300 Other: Voiding Method Indwelling Catheter Indwelling Catheter Indwelling Catheter - Exam GENERAL EXAM: Sedated, and intubated EYES: Normal reaction of pupils, equal size. Conjunctiva pink, sclera white. NECK: No masses, no JVD, no thyroid enlargement, no adenopathy. CHEST: No chest wall deformity. Symmetrical expansion. LUNGS: Equal air entry with no crackles, wheeze, rhonchi or dullness. CVS: Regular rate and rhythm, normal S1 and S2, no gallops, no murmurs, no rubs. Patient is in sinus mechanism, tachycardic with a rate of 125 BPM ABDOMEN: Distended, but nontender, absent bowel sounds, mid abdominal incision is clean dry and intact, irineo are intact EXTREMITIES: No clubbing, no edema, no cyanosis, 2+ pulses and upper and lower extremities. MUSCULOSKELETAL: Muscle strength and tone normal. CENTRAL NERVOUS SYSTEM: Sedated, intubated. No focal deficits, tone is normal in all 4 extremities. - Labs CBC & Chem 7: 04/23/21 07:48 04/23/21 07:48 Labs: Abnormal Lab Results - Last 24 Hours (Table) 04/21/21 04/22/21 04/22/21 Range/Units 04:32 05:20 05:20 RBC 3.76 L (4.30-5.90) m/uL Hgb 11.6 L (13.0-17.5) gm/dL Hct 33.9 L (39.0-53.0) % ABG pO2 (83-108) mmHg ABG HCO3 (21-25) mmol/L ABG Total CO2 (19-24) mmol/L ABG O2 Saturation (94-97) % Chloride 113 H (98-107) mmol/L BUN 22 H (9-20) mg/dL Glucose 158 H (74-99) mg/dL Calcium 7.3 L (8.4-10.2) mg/dL Phosphorus 1.3 L (2.5-4.5) mg/dL Magnesium 2.6 H (1.6-2.3) mg/dL Total Protein 4.1 L (6.3-8.2) g/dL Albumin 2.0 L (3.5-5.0) g/dL Triglycerides 485.00 H (0.00-149.00) mg/dL 04/22/21 Range/Units 05:55 RBC (4.30-5.90) m/uL Hgb (13.0-17.5) gm/dL Hct (39.0-53.0) % ABG pO2 125 H (83-108) mmHg ABG HCO3 30 H (21-25) mmol/L ABG Total CO2 32 H (19-24) mmol/L ABG O2 Saturation 97.5 H (94-97) % Chloride (98-107) mmol/L BUN (9-20) mg/dL Glucose (74-99) mg/dL Calcium (8.4-10.2) mg/dL Phosphorus (2.5-4.5) mg/dL Magnesium (1.6-2.3) mg/dL Total Protein (6.3-8.2) g/dL Albumin (3.5-5.0) g/dL Triglycerides (0.00-149.00) mg/dL Microbiology - Last 24 Hours (Table) 04/20/21 02:30 Blood Culture - Preliminary Blood No Growth after 48 hours 04/20/21 02:45 Blood Culture - Preliminary Blood No Growth after 48 hours 04/20/21 21:35 Urine Culture - Preliminary Urine,Catheterized Assessment and Plan Assessment: 1. Acute bowel obstruction with massive colonic and small bowel distention/ toxic megacolon. - patient underwent emergent decompression of the colon and small bowel along with diverting transverse loop colostomy on 04/20/2021. The patient is cu rrently postop day #1. 2. Acute hypoxic respiratory failure related to possible sepsis secondary to acute intra-abdominal process with the possibility of sigmoid obstruction and severe abdominal distention. The patient is currently on mechanical ventilator. The patient was kept on a mechanical ventilator postop. No weaning trials today 3. Acute leukocytosis/ Sepsis; current antibiotics Flagyl and Zosyn; ID recommending to switch to IV Cefepime 4. Acute lactic acidosis/ Hyperchloremic non-anion gap metabolic acidosis, related to massive fluid resuscitation with 0.9 normal saline 5. Bronchial asthma; continue with bronchodilators DVT Prophylaxis; SCDs/ SQ Lovenox CODE STATUS; FULL CODE
--- NOTE | 2021-04-23 20:22 | P.PN ---
Subjective Progress Note Date: 04/23/21 Principal diagnosis: Acute bowel obstruction with massive colonic and small bowel distention/ toxic megacolon. Acute hypoxic respiratory failure related to possible sepsis secondary to acute intra-abdominal process Acute leukocytosis/ Sepsis 40-year-old male who presented to the emergency room with complaints of abdominal distention and pain. Computed tomography scan had shown dilated large bowel and stricture in the mid sigmoid colon. An NG tube was inserted. The patient was quite ill, he had a leukocytosis and the patient also had lactic acidosis with a high as lactic acid level of 6.1. At that point, the patient was taken to the operating room and the patient underwent decompression of the colon and small bowel with a diverticular source loop colostomy. Postop, the patient was brought into the intensive care unit Patient is status post decompression of colon and small bowel with diverting transverse loop colostomy for sigmoid colon obstruction and massive colonic and small bowel dilatation. Postop day #1. Patient remains in the ICU. He is intubated and sedated. No stool from ostomy. NG tube with minimal output. Patient has been febrile with a T-max of 101.8 and tachycardic with BP on the lower side. He is not on any vasopressors. WBC has decreased from 34.3-11.0 Hgb 14.1 platelets 277 sodium 140 potassium 4.7 CO2 16 BUN 14 creatinine 1.04 04/22/2021 Patient remains intubated on a mechanical ventilator. Vital signs are reviewed with temperature 98.6 on postoperative 5, respiration 22 and blood pressure 115/67 Lab review reveals a drop in hemoglobin down to 11.6. Renal function stable. Electrodes are all within normal limits. Serum bicarb came up to 26. Lactic acid level is down to 1.3. NG tube is also in place. Output from the NG tube is minimal at this point in time. The blood gases from today shows a pH of 7.44 with a pCO2 of 45 and pO2 125. This was on FiO2 of 60%. His white cell count is down to 8.9. The patient is hemodynamically stable and the patient is on no pressors. There was a drop in hemoglobin down to 11.6. Renal function stable. Electrodes are all within normal limits. Serum bicarb came up to 26. Lactic acid level is down to 1.3. Abdomen is slightly distended. No output in his colostomy bag. Bowel sounds are still very much hypoactive. Surgical wound site is dry clean and intact. Cultures are all negative and the patient remains on IV cefepime as an empiric antibiotic coverage for now. He was also started on TPN for nutritional support. The patient is on Lovenox for DVT prophylaxis. 04/23/2021 Patient is seen and evaluated in ICU; extubated and currently is on oxygen at 4 L per minute nasal cannula. His respiratory status is stable. Vital sign review reveals temperature 97.9, pulse 101, respiration 18 and blood pressure 147/105 NG tube remains to suction. Output from the NG tube is 100 mL over the past 12 hours. The patient is afebrile. The patient remains on broad-spectrum antibiotics and the patient is currently on IV cefepime and Flagyl. Patient is postop day #3 as the patient underwent decompression of the colon and small bowel with a diverticular loop and this was all related to a sigmoid related stricture or complications from an earlier diverticulitis. No blood work from today. The chest x-ray from today showing cardiomegaly. No acute abnormalities are noted. The patient has no other complaints otherwise for now. Abdomen is slightly distended. Surgical with that site is dry clean and intact. And there is some limited amount of output in the colostomy bag. Objective - Vital Signs Vital signs: Vital Signs Temp 98.8 F 04/23/21 09:00 Pulse 104 H 04/23/21 12:00 Resp 15 04/23/21 12:00 BP 163/98 04/23/21 12:00 Pulse Ox 95 04/23/21 12:00 Intake & Output 04/22/21 04/23/21 04/23/21 18:59 06:59 18:59 Intake Total 2871.245 5754 430 Output Total 489 267 3330 Balance 790.122 250 -1820 Weight 136 kg Intake: IV 200 Dextrose 5% in Water 1, 200 000 ml @ 100 mls/hr IV . [id number] [facility] with Sod Bicarb Syr 8.4% (1 Meq/ml ) 150 ml Rx#:[id number] Intake, IV Titration 3844.915 3789 430 Amount ACETAMINOPHEN IV (For NPO 0 ) 1,000 mg In Empty Bag 1 bag @ 400 mls/hr IVPB Q6HR [facility] Rx#:[id number] Cefepime 2 gm In Sodium 100 Chloride 0.9% 100 ml @ 25 mls/hr IVPB Q8HR [facility] Rx# :[id number] Potassium Phosphate 10 200 100 mmol In Sodium Chloride 0 .9% 100 ml @ 50 mls/hr IV Q2H [facility] Rx#:[id number] Sodium Chloride 0.9% 1, 750 900 230 000 ml @ 75 mls/hr IV . [id number] [facility] Rx#:[id number] fentaNYL (PF). 1,000 mcg 100 In Sodium Chloride 0.9% 80 ml @ 0.5 MCG/KG/HR 5. 897 mls/hr IV .[id number] [facility] Rx#:[id number] metroNIDAZOLE-NS PMX 500 100 100 mg In Saline 1 100ml.bag @ 100 mls/hr IVPB Q8H [facility] Rx#:[id number] propofoL 1,000 mg In 60.122 Empty Bag 1 bag @ Titrate IV .Q0M [facility] Rx#: [id number] Output: Urine 045 [id number] Other: Voiding Method Indwelling Catheter Indwelling Catheter Indwelling Catheter - Exam GENERAL EXAM: Sedated, and intubated EYES: Normal reaction of pupils, equal size. Conjunctiva pink, sclera white. NECK: No masses, no JVD, no thyroid enlargement, no adenopathy. CHEST: No chest wall deformity. Symmetrical expansion. LUNGS: Equal air entry with no crackles, wheeze, rhonchi or dullness. CVS: Regular rate and rhythm, normal S1 and S2, no gallops, no murmurs, no rubs. Patient is in sinus mechanism, tachycardic with a rate of 125 BPM ABDOMEN: Distended, but nontender, absent bowel sounds, mid abdominal incision is clean dry and intact, irineo are intact EXTREMITIES: No clubbing, no edema, no cyanosis, 2+ pulses and upper and lower extremities. MUSCULOSKELETAL: Muscle strength and tone normal. CENTRAL NERVOUS SYSTEM: Sedated, intubated. No focal deficits, tone is normal in all 4 extremities. - Labs CBC & Chem 7: 04/23/21 07:48 04/23/21 07:48 Labs: Abnormal Lab Results - Last 24 Hours (Table) 04/22/21 04/23/21 04/23/21 Range/Units 17:47 07:48 07:48 WBC 16.5 H (3.8-10.6) k/uL RBC 4.04 L (4.30-5.90) m/uL Hgb 12.2 L (13.0-17.5) gm/dL Hct 37.3 L (39.0-53.0) % Neutrophils # 14.1 H (1.3-7.7) k/uL Potassium 3.4 L (3.5-5.1) mmol/L Chloride 111 H (98-107) mmol/L Creatinine 0.60 L (0.66-1.25) mg/dL Glucose 171 H (74-99) mg/dL POC Glucose (mg/dL) 126 H (75-99) mg/dL Calcium 7.9 L (8.4-10.2) mg/dL Phosphorus 2.2 L (2.5-4.5) mg/dL Magnesium 2.6 H (1.6-2.3) mg/dL Total Protein 4.8 L (6.3-8.2) g/dL Albumin 2.4 L (3.5-5.0) g/dL 04/23/21 Range/Units 11:24 WBC (3.8-10.6) k/uL RBC (4.30-5.90) m/uL Hgb (13.0-17.5) gm/dL Hct (39.0-53.0) % Neutrophils # (1.3-7.7) k/uL Potassium (3.5-5.1) mmol/L Chloride (98-107) mmol/L Creatinine (0.66-1.25) mg/dL Glucose (74-99) mg/dL POC Glucose (mg/dL) 158 H (75-99) mg/dL Calcium (8.4-10.2) mg/dL Phosphorus (2.5-4.5) mg/dL Magnesium (1.6-2.3) mg/dL Total Protein (6.3-8.2) g/dL Albumin (3.5-5.0) g/dL Microbiology - Last 24 Hours (Table) 04/20/21 02:45 Blood Culture - Preliminary Blood No Growth after 72 hours 04/20/21 02:30 Blood Culture - Preliminary Blood No Growth after 72 hours 04/20/21 21:35 Urine Culture - Final Urine,Catheterized Assessment and Plan Assessment: 1. Acute bowel obstruction with massive colonic and small bowel distention/ toxic megacolon. - patient underwent emergent decompression of the colon and small bowel along with diverting transverse loop colostomy on 04/20/2021. The patient is curr ently postop day #1. 2. Acute hypoxic respiratory failure related to possible sepsis secondary to a cute intra-abdominal process with the possibility of sigmoid obstruction and severe abdominal distention. The patient is currently on mechanical ventilator. The patient was kept on a mechanical ventilator postop. No weaning trials today 3. Acute leukocytosis/ Sepsis; current antibiotics Flagyl and Zosyn; ID recommending to switch to IV Cefepime 4. Acute lactic acidosis/ Hyperchloremic non-anion gap metabolic acidosis, related to massive fluid resuscitation with 0.9 normal saline 5. Bronchial asthma; continue with bronchodilators DVT Prophylaxis; SCDs/ SQ Lovenox CODE STATUS; FULL CODE
--- NOTE | 2021-04-24 00:18 | PN ---
PROGRESS NOTE DATE OF SERVICE: 04/23/2021 REASON FOR FOLLOWUP: Abdominal sepsis. INTERVAL HISTORY: The patient is afebrile. The patient is more awake and alert. He is breathing comfortably. Denies any worsening abdominal pain. No chest pain, shortness of breath or cough. PHYSICAL EXAMINATION: Blood pressure is 161/100 with a pulse of 101, temperature 98.8. He is 95% on room air. General description is a middle-aged male lying in bed in no distress. Respiratory system: Unlabored breathing, clear to auscultation anteriorly. Heart S1, S2. Regular rate and rhythm. Abdomen soft, slightly distended. No guarding or rigidity. LABS: Hemoglobin is 12. with white count 15.5, creatinine 0.60. DIAGNOSTIC IMPRESSION AND PLAN: Patient with a fever, possible abdominal source in this patient admitted to hospital with abdominal distention and he is status post diverting colostomy. Patient is covered with cefepime and Flagyl because of his PENICILLIN ALLERGY; to continue. White count had jumped up. Will need to monitor closely. Continue supportive care. MMODL / IJN: [id number] /
[2021-04-24] MEDS: CEFEPIME 2 GM in SODIUM CHLORIDE 0.9% 100 ML IVPB SCH ×4 (00:40→23:51)
[2021-04-24] MEDS: metroNIDAZOLE-NS PMX 500 MG in SALINE 1 100ML.BAG IVPB SCH ×3 (03:07→19:34)
[2021-04-24 07:30] LABS: Basophils # (A) 0.1 k/uL (0-0.2); Basophils % (A) 0 %; Eosinophils # (A) 0.2 k/uL (0-0.7); Eosinophils % (A) 1 %; HCT 36.7 % (39.0-53.0); HGB 11.9 gm/dL (13.0-17.5); Lymphocytes # (A) 1.5 k/uL (1.0-4.8); Lymphocytes % (A) 11 %; MCHC 32.4 g/dL (31.0-37.0); MCV 92.4 fL (80.0-100.0); Monocytes # (A) 0.9 k/uL (0-1.0); Monocytes % (A) 7 %; Neutrophils % (A) 78 %; Platelet Count 268 k/uL (150-450); RBC 3.98 m/uL (4.30-5.90); RDW 13.1 % (11.5-15.5)
[2021-04-24 07:51] LABS: ALT 23 U/L (4-49); AST 42 U/L (17-59); African American GFR (CKD) >90 (>60 ml/min/1.73 sqM); Albumin 2.3 g/dL (3.5-5.0); Alkaline Phosphatase 80 U/L (38-126); Anion Gap 4 mmol/L; Blood Urea Nitrogen 21 mg/dL (9-20); Calcium 8.2 mg/dL (8.4-10.2); Carbon Dioxide 31 mmol/L (22-30); Chloride 110 mmol/L (98-107); Glucose 151 mg/dL (74-99); Magnesium 2.2 mg/dL (1.6-2.3); Non-African American GFR(CKD) >90 (>60 ml/min/1.73 sqM); Phosphorus 3.2 mg/dL (2.5-4.5); Potassium 3.7 mmol/L (3.5-5.1); Sodium 145 mmol/L (137-145); Total Bilirubin 0.2 mg/dL (0.2-1.3); Total Protein 4.7 g/dL (6.3-8.2)
[2021-04-24 09:13] VITALS: BMI 42.2
[2021-04-24] MEDS: ALBUTEROL HFA INHALER INHALATION PRN (09:35)
--- NOTE | 2021-04-24 11:43 | P.PN ---
Subjective Progress Note Date: 04/24/21 CHIEF COMPLAINT: Abdominal pain and abdominal distention HISTORY OF PRESENT ILLNESS: Patient is status post decompression of colon and small bowel with diverting transverse loop colostomy for sigmoid colon obstruction and massive colonic and small bowel dilatation. Postop day #4. Patient remains in the ICU. He was extubated on Saturday. Patient is awake and alert answering questions. He reports improvement in his abdominal pain. He denies any nausea. He had about 800 mL output through the NG tube yesterday. Ostomy is functioning. He is afebrile. WBC has decreased from 16.5-14. Hgb 11.9 platelets 268 sodium 145 potassium 3.7 creatinine 0.66 PHYSICAL EXAM: VITAL SIGNS: Reviewed. GENERAL: Well-developed in no acute distress. HEENT: No sclera icterus. Extraocular movements grossly intact. Moist buccal mucosa. Head is atraumatic, normocephalic. ABDOMEN: Soft. Decrease in abdominal distention. Incisional dressing clean dry and intact. Ostomy with stool and air NEUROLOGIC: Awake and alert ASSESSMENT: 1. Sigmoid colon obstruction and massive colonic and small bowel dilatation status post decompression of colon and small bowel with diverting transverse loop colostomy PLAN: -Continue ICU management -Continue supportive care -Continue NG tube for decompression -continue antibiotics per ID -Continue pain medication as needed -Increase activity level Physician Surfacer note has been reviewed by physician. Signing provider agrees with the documented findings, assessment, and plan of care. Objective - Vital Signs Vital signs: Vital Signs Temp 97.6 F 04/24/21 08:00 Pulse 93 04/24/21 11:00 Resp 13 04/24/21 11:00 BP 154/101 04/24/21 11:00 Pulse Ox 93 L 04/24/21 11:00 Intake & Output 04/23/21 04/24/21 04/24/21 18:59 06:59 18:59 Intake Total 1860 530 74 Output Total 4330 1920 300 Balance -2470 -1390 -226 Weight 133.5 kg 133.5 kg Intake: IV 320 60 KVO 220 60 metroNIDAZOLE-NS PMX 500 100 mg In Saline 1 100ml.bag @ 100 mls/hr IVPB Q8H [facility] Rx#:[id number] Intake, IV Titration 1860 100 Amount Cefepime 2 gm In Sodium 100 100 Chloride 0.9% 100 ml @ 25 mls/hr IVPB Q8HR [facility] Rx# :[id number] Potassium Chloride 20 meq 200 In Water For Injection 1 100ml.bag @ 50 mls/hr IVPB Q2H [facility] Rx#: [id number] Potassium Phosphate 10 100 mmol In Sodium Chloride 0 .9% 100 ml @ 50 mls/hr IV Q2H [facility] Rx#:[id number] Sodium Acetate 30 meq 1030 Potassium Phosphate 15 mmol Calcium Gluconate 1 gm In Amino Acid 5%-D15w 1,000 ml @ 50 mls/hr IV . BY DURATION [facility] Rx#: [id number] Sodium Chloride 0.9% 1, 330 000 ml @ 75 mls/hr IV . [id number] [facility] Rx#:[id number] metroNIDAZOLE-NS PMX 500 100 mg In Saline 1 100ml.bag @ 100 mls/hr IVPB Q8H [facility] Rx#:[id number] Oral 110 Tube Feeding 14 Output: Gastric Drainage 1600 800 Urine 2730 920 300 Urine/Stool Mix 200 Other: Voiding Method Indwelling Catheter Indwelling Catheter Indwelling Catheter - Labs CBC & Chem 7: 04/24/21 07:04 04/24/21 07:04 Labs: Abnormal Lab Results - Last 24 Hours (Table) 04/24/21 04/24/21 Range/Units 07:04 07:04 WBC 14.0 H (3.8-10.6) k/uL RBC 3.98 L (4.30-5.90) m/uL Hgb 11.9 L (13.0-17.5) gm/dL Hct 36.7 L (39.0-53.0) % Neutrophils # 11.0 H (1.3-7.7) k/uL Chloride 110 H (98-107) mmol/L Carbon Dioxide 31 H (22-30) mmol/L BUN 21 H (9-20) mg/dL Glucose 151 H (74-99) mg/dL Calcium 8.2 L (8.4-10.2) mg/dL Total Protein 4.7 L (6.3-8.2) g/dL Albumin 2.3 L (3.5-5.0) g/dL Microbiology - Last 24 Hours (Table) 04/20/21 02:45 Blood Culture - Preliminary Blood No Growth after 96 hours 04/20/21 02:30 Blood Culture - Preliminary Blood No Growth after 96 hours
[2021-04-24] MEDS: PANTOPRAZOLE 40 MG/10 ML VIAL IVP SCH (11:57)
[2021-04-24] MEDS: ENOXAPARIN 40 MG/0.4 ML SYRINGE SQ SCH (11:57)
--- NOTE | 2021-04-24 12:52 | P.PN ---
Subjective Progress Note Date: 04/24/21 Principal diagnosis: Acute bowel obstruction, status post emergent decompression of colon and small bowel with diet diverting transverse loop colostomy. this is a 40-year-old male patientpresented to the hospital because of abdominal pain and distention. The patient had cntlly-hr-crlyr amount of bloating. He has been constipated and he was taken max citrate on outpatient basis. He had a bout of emesis prior to him coming to the hospital. His last colonoscopy was in December 2019 and was essentially a poor prep and there was some mild narrowing of the sigmoid colon extending from 30 cm from the anal verge with mild mucosal thickening and erythema suspicious for diverticular related complications.The patient had a CAT scan of the abdomen that showed dilated small and large bowel. An NG tube was inserted. The patient was quite ill, he had a leukocytosis and the patient also had lactic acidosis with a high as lactic acid level of 6.1. At that point, the patient was taken to the operating room and the patient underwent decompression of the colon and small bowel with a diverticular source loop colostomy. Postop, the patient was brought into the intensive care uni t.intraoperatively, the patient was found to have significant small bowel and colonic distention. The small bowel was decompressed first. The enterotomy was closed using a TX 60 stapler. Next the transverse colon was found. He was massively dilated. A suitable spot for a loop colostomy was found. And then the decompressive colostomy was treated. The colon was decompressed and the enterotomy is closed using the TX 60 stapler. The patient appeared to have a colonic obstruction at the sigmoid colon. Due to the massive distention of the bowel was decided not to perform resection. The colostomy brought up in the left upper quadrant. The patient is currently intubated on a mechanical ve ntilator. In the ICU, the patient was started on propofol for sedation. Currently is on 70 mcg/kg per minute of propofol infusion. At the same time, the patient is sitting the left for pain control. NG tube is in place and output is minimal at this point in time. Surgical wound site is dry clean and intact. Abdomen remains somewhat distended. Bowel sounds are absent. He is on a mechanical ventilator. I have an assist-control mode with a rate of 24, tidal volume of 500, FiO2 100% and PEEP of 5. Chest x-ray showed smaller lung volumes and the patient had an orotracheal tube in place. A triple catheter was also inserted through the left IJ. OG tube is in a good location. Patient is ALLERGIC to penicillin. We'll decide on a combination of Levaquin and Flagyl. He is on no pressors for now. He'll be also fluid resuscitated. Awaiting blood gases and further repeat labs postop. 04/22/2021, the patient remains intubated on a mechanical ventilator. This morning he is on propofol running at 20 mcg/kg per minute and the patient is also on fentanyl running at 1 melquiades per kilogram per minute. His IV fluids are in the form of bicarb infusion at the rate of 100 mL an hour. He is well sedated and is very much suspicious for mechanical ventilator. He remains on assist control mode and the patient is at a rate of 22, tidal volume of 550, FiO2 of 60% with a PEEP of 5. Chest x-ray shows some limited atelectatic changes in lung bases bilaterally. No significant orotracheal secretions. Orotracheal tube is in place. NG tube is also in place. Output from the NG tube is minimal at this point in time. The blood gases from today shows a pH of 7.44 with a pCO2 of 45 and pO2 125. This was on FiO2 of 60%. His white cell count is down to 8.9. The patient is hemodynamically stable and the patient is on no pressors. There was a drop in hemoglobin down to 11.6. Renal function stable. Electrodes are all within normal limits. Serum bicarb came up to 26. Lactic acid level is down to 1.3. Abdomen is slightly distended. No output in his colostomy bag. Bowel sounds are still very much hypoactive. Surgical wound site is dry clean and intact. Cultures are all negative and the patient remains on IV cefepime as an empiric antibiotic coverage for now. He was also started on TPN for nutritional support. The patient is on Lovenox for DVT prophylaxis. 04/23/2021, the patient is extubated and the patient is being seen for a follow- up. I was able to extubate the patient yesterday without any major difficulties. I weaned him off the sedation and following that he was given a spontaneous breathing trial and he did well and subsequently was extubated to nasal cannula and currently is on oxygen at 4 L per minute nasal cannula. His respiratory status is stable. NG tube has been In place and this is still to suction. Output from the NG tube is 100 mL over the past 12 hours. The patient is afebrile. The patient remains on broad-spectrum antibiotics and the patient is currently on IV cefepime and Flagyl. Hemodynamically stable and he is on no pressors. The patient is postop day #3 as the patient underwent decompression of the colon and small bowel with a diverticular loop and this was all related to a sigmoid related stricture or complications from an earlier diverticulitis. No blood work from today. The chest x-ray from today showing cardiomegaly. No acute abnormalities are noted. The patient has no other complaints otherwise for now. Abdomen is slightly distended. Surgical with that site is dry clean and intact. And there is some limited amount of output in the colostomy bag. Patient was reevaluated today on 04/24/2021, remains in the ICU, continues to tolerate extubation well, patient is feeling great. He is on 2 L nasal cannula with O2 sats of 93%. Patient denies any pain, denies any shortness of breath, no cough, no wheezing. He is receiving TPN. Patient is hemodynamically stable. WBC count is down to 14 electrolytes are normal renal profile is normal hemoglobin is 11.9. Hence I plan to transfer the patient out of the ICU to a regular medical floor Objective - Vital Signs Vital signs: Vital Signs Temp 97.6 F 04/24/21 08:00 Pulse 93 04/24/21 11:00 Resp 13 04/24/21 11:00 BP 154/101 04/24/21 11:00 Pulse Ox 93 L 04/24/21 11:00 Intake & Output 04/23/21 04/24/21 04/24/21 18:59 06:59 18:59 Intake Total 1860 530 74 Output Total 4330 1920 300 Balance -2470 -1390 -226 Weight 133.5 kg 133.5 kg Intake: IV 320 60 KVO 220 60 metroNIDAZOLE-NS PMX 500 100 mg In Saline 1 100ml.bag @ 100 mls/hr IVPB Q8H [facility] Rx#:[id number] Intake, IV Titration 1860 100 Amount Cefepime 2 gm In Sodium 100 100 Chloride 0.9% 100 ml @ 25 mls/hr IVPB Q8HR [facility] Rx# :[id number] Potassium Chloride 20 meq 200 In Water For Injection 1 100ml.bag @ 50 mls/hr IVPB Q2H [facility] Rx#: [id number] Potassium Phosphate 10 100 mmol In Sodium Chloride 0 .9% 100 ml @ 50 mls/hr IV Q2H [facility] Rx#:[id number] Sodium Acetate 30 meq 1030 Potassium Phosphate 15 mmol Calcium Gluconate 1 gm In Amino Acid 5%-D15w 1,000 ml @ 50 mls/hr IV . BY DURATION [facility] Rx#: [id number] Sodium Chloride 0.9% 1, 330 000 ml @ 75 mls/hr IV . [id number] [facility] Rx#:[id number] metroNIDAZOLE-NS PMX 500 100 mg In Saline 1 100ml.bag @ 100 mls/hr IVPB Q8H [facility] Rx#:[id number] Oral 110 Tube Feeding 14 Output: Gastric Drainage 1600 800 Urine 2730 920 300 Urine/Stool Mix 200 Other: Voiding Method Indwelling Catheter Indwelling Catheter Indwelling Catheter - Exam Physical Exam revealed 40-year-old white male, in no distress, on 2 L nasal. Head: Atraumatic, normocephalic. HEENT:[Neck is supple.] [No neck masses.] [No thyromegaly.] [No JVD.] Chest: [Clear throughout, no crackles, no rhonchi, no wheezes.] Cardiac Exam: [Normal S1 and S2, no S3 gallop, no murmur.] Abdomen: [Soft, nontender, no megaly, no rebound, no guarding, normal bowel sounds.] Colostomy seems to be intact and functional. Extremities: [No clubbing, no edema, no cyanosis.] Neurological Exam: [No focal neurologic deficit.] Alert oriented 3. Psychiatric: Normal mood affect and normal mental status examination. Skin: No rashes. - Labs CBC & Chem 7: 04/24/21 07:04 04/24/21 07:04 Labs: Abnormal Lab Results - Last 24 Hours (Table) 04/24/21 04/24/21 Range/Units 07:04 07:04 WBC 14.0 H (3.8-10.6) k/uL RBC 3.98 L (4.30-5.90) m/uL Hgb 11.9 L (13.0-17.5) gm/dL Hct 36.7 L (39.0-53.0) % Neutrophils # 11.0 H (1.3-7.7) k/uL Chloride 110 H (98-107) mmol/L Carbon Dioxide 31 H (22-30) mmol/L BUN 21 H (9-20) mg/dL Glucose 151 H (74-99) mg/dL Calcium 8.2 L (8.4-10.2) mg/dL Total Protein 4.7 L (6.3-8.2) g/dL Albumin 2.3 L (3.5-5.0) g/dL Microbiology - Last 24 Hours (Table) 04/20/21 02:45 Blood Culture - Preliminary Blood No Growth after 96 hours 04/20/21 02:30 Blood Culture - Preliminary Blood No Growth after 96 hours Assessment and Plan Assessment: Impression: Acute bowel obstruction, status post emergent decompression of colon and small bowel with diet diverting colostomy postoperative day #4. Sigmoid colon obstruction Postoperative atelectasis, no clear-cut evidence of pneumonia, this is expected. Patient will be instructed to use his incentive spirometer. History of diverticular disease History of bronchial asthma Obesity with BMI of 37.3. Postoperative hypoxic respiratory failure secondary to mostly atelectasis which is expected. Doubt pneumonia Recommendation: Continue incentive spirometer. Titrate oxygen and possibly discontinue if his O2 saturation improves. Transfer patient out of the ICU to regular medical floor. Continue TPN for nutritional support. Continue antibiotics including cefepime and Flagyl. Continue to monitor daily labs and electrolytes. Will continue to follow and address issues accordingly Time with Patient: Greater than 30
[2021-04-24] MEDS: POTASSIUM PHOSPHATE IV SCH ×6 (13:23)
[2021-04-24] MEDS: CALCIUM GLUCONATE IV SCH ×6 (13:23)
[2021-04-24] MEDS: [UNRECOGNIZED DRUG - OTHER] IV SCH ×6 (13:23)
[2021-04-24] MEDS: SODIUM ACETATE IV SCH ×6 (13:23)
[2021-04-24] MEDS: MVI IV SCH ×6 (13:23)
[2021-04-24] MEDS ORDERED: hydrALAZINE HCL 20 MG/ML 1 ML VIAL IVP PRN (15:08)
[2021-04-24] MEDS ORDERED: FAT EMULSION 20% 250 ML in EMPTY BAG 1 BAG IV SCH (18:00)
--- NOTE | 2021-04-24 18:05 | PN ---
PROGRESS NOTE DATE OF SERVICE: 04/24/2021 This 40-year-old gentleman who was admitted with acute sigmoid obstruction, toxic megacolon had surgery. The patient is being closely monitored at this time. Cultures are negative, so the patient is on broad-spectrum IV antibiotics. Lab-savage, white count is still elevated at 14. Patient is being monitored in ICU, as mentioned earlier. Past medical history reviewed. REVIEW OF SYSTEMS: CARDIOVASCULAR SYSTEM: No angina. RESPIRATION: As mentioned earlier. GI: As mentioned earlier. : No dysuria. NERVOUS SYSTEM: No numbness, weakness. CURRENT MEDICATIONS: Reviewed. They include Tylenol, cefepime 2 grams IV q.8, Lovenox, Dilaudid, Flagyl, Narcan, Zofran. Doses are reviewed. PHYSICAL EXAMINATION: Patient is alert and oriented x3. Pulse 93, blood pressure 154/101, respiration 13, temperature normal, pulse ox 93% on 2 L. HEENT: Conjunctivae normal. NECK: No jugular venous distention. CARDIOVASCULAR: S1, S2 muffled. RESPIRATION: Breath sounds diminished at the bases. Scattered rhonchi and crackles. ABDOMEN: Soft, obese. Bowel sounds diminished. LEGS: No edema. No swelling. NERVOUS SYSTEM: No focal deficit. LAB STUDIES: WBC 14, hemoglobin 11.9 and glucose 151. ASSESSMENT: 1. Acute sigmoid bowel obstruction, status post diverting and transverse loop colostomy and decompression of the colon and small bowel. 2. Acute toxic megacolon with acute severe sepsis, present on admission. 3. Acute hypoxic respiratory failure. 4. Acute metabolic acidosis. 5. Lactic acidosis. 6. Hypocalcemia, present on admission. 7. Hypertension. 8. Hyperkalemia, present on admission. 9. Increased white count. 10.Elevated hemoglobin, possible polycythemia. 11.History of asthma. 12.History of diverticulitis. 13.History of nicotine dependence. 14.Obesity with body mass index of 37.6. 15.FULL CODE. RECOMMENDATIONS AND DISCUSSION: I recommend to continue current medications, continue with symptomatic treatment. Continue the bronchodilators. Continue with incentive spirometry. Continue with cefepime. Patient is currently on n.p.o. diet. I would recommend IV hydralazine on a p.r.n. basis, also. Continue to monitor. Further recommendations to follow. Once the patient is p.o., we will initiate oral antihypertension medications. MMODL / IJN: [id number] /
--- NOTE | 2021-04-24 18:21 | PN ---
PROGRESS NOTE DATE OF SERVICE: 04/24/2021. REASON FOR FOLLOWUP: Abdominal infection. INTERVAL HISTORY: Patient is afebrile. The patient is currently breathing comfortably. The patient denies having any chest pain, shortness of breath or cough. Abdominal pain is currently controlled. No vomiting or diarrhea. PHYSICAL EXAMINATION: Blood pressure 154/100 with a pulse of 90, temperature 98. He is 93% on 2 L nasal cannula. General description is a middle-aged male lying in bed in no distress. Respiratory system: Unlabored breathing, decreased breath sounds in the bases. No wheeze. Heart S1, S2. Regular rate and rhythm. Abdomen: Soft, mildly tender. No guarding. No rigidity. LABS: Hemoglobin 11.1, white count 14, BUN of 21, creatinine 0.66. Blood cultures have been negative. DIAGNOSTIC IMPRESSION AND PLAN: Patient with intraabdominal infection in this patient admitted to the hospital with ileus obstruction, status post diverting colostomy. The patient culture has been negative so far. He is covered with antibiotic, Cefepime and Flagyl which the patient tolerated. Continue supportive care. MMODL / IJN: [id number] /
[2021-04-24] MEDS: PIPERACILLIN-TAZOBACTAM 3.375 GM in SODIUM CHLORIDE 0.9% 100 ML IVPB SCH (20:05)
[2021-04-25] MEDS: POTASSIUM PHOSPHATE IV SCH ×18 (02:37→15:39)
[2021-04-25] MEDS: SODIUM ACETATE IV SCH ×18 (02:37→15:39)
[2021-04-25] MEDS: [UNRECOGNIZED DRUG - OTHER] IV SCH ×18 (02:37→15:39)
[2021-04-25] MEDS: MVI IV SCH ×18 (02:37→15:39)
[2021-04-25] MEDS: CALCIUM GLUCONATE IV SCH ×18 (02:37→15:39)
[2021-04-25] MEDS: metroNIDAZOLE-NS PMX 500 MG in SALINE 1 100ML.BAG IVPB SCH ×3 (04:59→21:10)
[2021-04-25 06:00] LABS: Glucose,Whole Blood 177 mg/dL (75-99)
[2021-04-25 06:56] LABS: Magnesium 1.9 mg/dL (1.6-2.3); Phosphorus 4.3 mg/dL (2.5-4.5)
[2021-04-25 07:04] LABS: HCT 36.4 % (39.0-53.0); MCH 29.9 pg (25.0-35.0); MCV 90.5 fL (80.0-100.0); Mean Platelet Volume 7.3; Platelet Count 303 k/uL (150-450); RBC 4.03 m/uL (4.30-5.90); RDW 13.4 % (11.5-15.5); WBC 13.6 k/uL (3.8-10.6)
[2021-04-25] MEDS: CEFEPIME 2 GM in SODIUM CHLORIDE 0.9% 100 ML IVPB SCH ×2 (07:44→15:38)
[2021-04-25] MEDS: PANTOPRAZOLE 40 MG/10 ML VIAL IVP SCH (07:44)
[2021-04-25] MEDS: ENOXAPARIN 40 MG/0.4 ML SYRINGE SQ SCH (07:59)
[2021-04-25] MEDS: ALBUTEROL HFA INHALER INHALATION PRN (08:58)
[2021-04-25 11:46] LABS: Band Neutrophils % 1 %; Eosinophils # (M) 0.27 k/uL (0-0.7); Lymphocytes # (M) 1.77 k/uL (1.0-4.8); Metamyelocytes # (M) 0.68 k/uL (0); Metamyelocytes % 5 %; Monocytes # (M) 1.63 k/uL (0-1.0); Myelocytes # (M) 0.27 k/uL (0); Myelocytes % 2 %; Neutrophils % (M) 68 %; Nucleated Red Blood Cells 0 /100 WBC (0-0); Total Cells Counted 200
--- NOTE | 2021-04-25 12:01 | P.PN ---
Subjective Progress Note Date: 04/25/21 Principal diagnosis: Acute bowel obstruction, status post decompression of the colon and small bowel with diverting colostomy this is a 40-year-old male patientpresented to the hospital because of abdominal pain and distention. The patient had [id number] amount of bloating. He has been constipated and he was taken max citrate on outpatient basis. He had a bout of emesis prior to him coming to the hospital. His last colonoscopy was in December 2019 and was essentially a poor prep and there was some mild narrowing of the sigmoid colon extending from 30 cm from the anal verge with mild mucosal thickening and erythema suspicious for diverticular related complications.The patient had a CAT scan of the abdomen that showed dilated small and large bowel. An NG tube was inserted. The patient was quite ill, he had a leukocytosis and the patient also had lactic acidosis with a high as lactic acid level of 6.1. At that point, the patient was taken to the operating room and the patient underwent decompression of the colon and small bowel with a diverticular source loop colostomy. Postop, the patient was brought into the intensive care unit.intraoperatively, the patient was found to have significant small bowel and colonic distention. The small bowel was decompressed first. The enterotomy was closed using a TX 60 stapler. Next the transverse colon was found. He was massively dilated. A suitable spot for a loop colostomy was found. And then the decompressive colostomy was treated. The colon was decompressed and the enterotomy is closed using the TX 60 stapler. The patient appeared to have a colonic obstruction at the sigmoid colon. Due to the massive distention of the bowel was decided not to perform resection. The colostomy brought up in the le ft upper quadrant. The patient is currently intubated on a mechanical ventilator. In the ICU, the patient was started on propofol for sedation. Currently is on 70 mcg/kg per minute of propofol infusion. At the same time, the patient is sitting the left for pain control. NG tube is in place and output is minimal at this point in time. Surgical wound site is dry clean and intact. Abdomen remains somewhat distended. Bowel sounds are absent. He is on a mechanical ventilator. I have an assist-control mode with a rate of 24, tidal volume of 500, FiO2 100% and PEEP of 5. Chest x-ray showed smaller lung volumes and the patient had an orotracheal tube in place. A triple catheter was also inserted through the left IJ. OG tube is in a good location. Patient is ALLERGIC to penicillin. We'll decide on a combination of Levaquin and Flagyl. He is on no pressors for now. He'll be also fluid resuscitated. Awaiting blood gases and further repeat labs postop. 04/22/2021, the patient remains intubated on a mechanical ventilator. This morning he is on propofol running at 20 mcg/kg per minute and the patient is also on fentanyl running at 1 melquiades per kilogram per minute. His IV fluids are in the form of bicarb infusion at the rate of 100 mL an hour. He is well sedated and is very much suspicious for mechanical ventilator. He remains on assist control mode and the patient is at a rate of 22, tidal volume of 550, FiO2 of 60% with a PEEP of 5. Chest x-ray shows some limited atelectatic changes in lung bases bilaterally. No significant orotracheal secretions. Orotracheal tube is in place. NG tube is also in place. Output from the NG tube is minimal at this point in time. The blood gases from today shows a pH of 7.44 with a pCO2 of 45 and pO2 125. This was on FiO2 of 60%. His white cell count is down to 8.9. The patient is hemodynamically stable and the patient is on no pressors. There was a drop in hemoglobin down to 11.6. Renal function stable. Electrodes are all within normal limits. Serum bicarb came up to 26. Lactic acid level is down to 1.3. Abdomen is slightly distended. No output in his colostomy bag. Bowel sounds are still very much hypoactive. Surgical wound site is dry clean and intact. Cultures are all negative and the patient remains on IV cefepime as an empiric antibiotic coverage for now. He was also started on TPN for nutritional support. The patient is on Lovenox for DVT prophylaxis. 04/23/2021, the patient is extubated and the patient is being seen for a follow- up. I was able to extubate the patient yesterday without any major difficulties. I weaned him off the sedation and following that he was given a spontaneous breathing trial and he did well and subsequently was extubated to nasal cannula and currently is on oxygen at 4 L per minute nasal cannula. His respiratory status is stable. NG tube has been In place and this is still to suction. Output from the NG tube is 100 mL over the past 12 hours. The patient is afebrile. The patient remains on broad-spectrum antibiotics and the patient is currently on IV cefepime and Flagyl. Hemodynamically stable and he is on no pressors. The patient is postop day #3 as the patient underwent decompression of the colon and small bowel with a diverticular loop and this was all related to a sigmoid related stricture or complications from an earlier diverticulitis. No blood work from today. The chest x-ray from today showing cardiomegaly. No acute abnormalities are noted. The patient has no other complaints otherwise for now. Abdomen is slightly distended. Surgical with that site is dry clean and intact. And there is some limited amount of output in the colostomy bag. Patient was reevaluated today on 04/24/2021, remains in the ICU, continues to tolerate extubation well, patient is feeling great. He is on 2 L nasal cannula with O2 sats of 93%. Patient denies any pain, denies any shortness of breath, no cough, no wheezing. He is receiving TPN. Patient is hemodynamically stable. WBC count is down to 14 electrolytes are normal renal profile is normal hemoglobin is 11.9. Hence I plan to transfer the patient out of the ICU to a regular medical floor The patient is seen today 04/25/2021 in follow-up on the regular medical floor. He is awake and alert in no acute distress. Resting quite comfortably in bed. Maintaining O2 saturations in the 90s on 2 L/m per nasal cannula. He's been afebrile. Hemodynamically stable. Ostomy is functioning. Midline incision dressing dry and intact. Cultures reveal no growth. Urine cultures reveal no growth. White count 13.6. Hemoglobin 12.0. Glucose 177. He remains on cefepime, Flagyl. Being nourished with TPN. Lovenox for DVT prophylaxis. Objective - Vital Signs Vital signs: Vital Signs Temp 97.9 F 04/25/21 07:01 Pulse 97 04/25/21 07:01 Resp 18 04/25/21 07:01 BP 155/65 04/25/21 07:01 Pulse Ox 97 04/25/21 07:01 Intake & Output 04/24/21 04/25/2121 18:59 06:59 18:59 Intake Total 474 0 Output Total 990 1300 350 Balance -516 -1300 -350 Weight 133.5 kg Intake: IV 260 KVO 160 metroNIDAZOLE-NS PMX 500 100 mg In Saline 1 100ml.bag @ 100 mls/hr IVPB Q8H [facility] Rx#:[id number] Intake, IV Titration 200 Amount Cefepime 2 gm In Sodium 200 Chloride 0.9% 100 ml @ 25 mls/hr IVPB Q8HR [facility] Rx# :[id number] Oral 0 Tube Feeding 14 Output: Urine 990 1300 350 Uretheral (Garner) 350 Other: Voiding Method Indwelling Catheter Indwelling Catheter Indwelling Catheter - Exam GENERAL EXAM: Alert, pleasant 40-year-old gentleman, on 2 L nasal cannula, comfortable in no apparent distress. HEAD: Normocephalic. EYES: Normal reaction of pupils, equal size. NOSE: Clear with pink turbinates. THROAT: No erythema or exudates. NECK: No masses, no JVD. CHEST: No chest wall deformity. LUNGS: Equal air entry with faint crackles in the posterior bases. CVS: S1 and S2 normal with no audible murmur, regular rhythm. ABDOMEN: Ostomy functioning. Midline incision dry and intact. Bowel sounds present SPINE: No scoliosis or deformity SKIN: No rashes CENTRAL NERVOUS SYSTEM: No focal deficits, tone is normal in all 4 extremities. EXTREMITIES: There is no peripheral edema. No clubbing, no cyanosis. Peripheral pulses are intact. - Labs CBC & Chem 7: 04/25/21 05:59 04/24/21 07:04 Labs: Abnormal Lab Results - Last 24 Hours (Table) 04/24/21 04/25/21 04/25/21 Range/Units 12:50 05:59 05:59 WBC 13.6 H (3.8-10.6) k/uL RBC 4.03 L (4.30-5.90) m/uL Hgb 12.0 L (13.0-17.5) gm/dL Hct 36.4 L (39.0-53.0) % Neutrophils # (Manual) 9.30 H (1.3-7.7) k/uL Monocytes # (Manual) 1.63 H (0-1.0) k/uL Metamyelocytes # (Man) 0.68 H (0) k/uL Myelocytes # (Manual) 0.27 H (0) k/uL POC Glucose (mg/dL) 177 H (75-99) mg/dL Triglycerides 275.00 H (0.00-149.00) mg/dL Microbiology - Last 24 Hours (Table) 04/20/21 02:45 Blood Culture - Preliminary Blood No Growth after 120 hours 04/20/21 02:30 Blood Culture - Preliminary Blood No Growth after 120 hours Assessment and Plan Assessment: 1 Acute bowel obstruction, status post emergent decompression of colon and small bowel with diet diverting colostomy postoperative day #5. 2 Sigmoid colon obstruction 3 Postoperative atelectasis, no clear-cut evidence of pneumonia, this is expected. Patient will be instructed to use his incentive spirometer. 4 History of diverticular disease 5 History of bronchial asthma 6 Obesity with BMI of 37.3. Plan: The patient was seen and evaluated by Dr. Jero Ruiz from the pulmonary and critical care standpoint Titrate down the FiO2 as tolerated Increase use of the incentive spirometer and cough and deep breathing exercise Increase his activity as tolerated TPN for nutritional support Continue antibiotics We will follow as needed I, the cosigning physician, performed a history & physical examination of the patient. Lungs sounds faint crackles in the posterior bases. Maintaining good O2 saturations in the 90s on 2 L/m per nasal cannula. I discussed the assessment and plan of care with my nurse practitioner, Trinh Elam. I attest to the above note as dictated by her.
[2021-04-25 12:25] LABS: Glucose,Whole Blood 154 mg/dL (75-99)
--- NOTE | 2021-04-25 12:48 | P.PN ---
Subjective Progress Note Date: 04/25/21 CHIEF COMPLAINT: Abdominal pain and abdominal distention HISTORY OF PRESENT ILLNESS: Patient is status post decompression of colon and small bowel with diverting transverse loop colostomy for sigmoid colon obstruction and massive colonic and small bowel dilatation. Postop day #5. Patient was transferred out of the ICU yesterday. His ostomy is functioning. He is sitting up at bedside chair. He denies any nausea. Pain is controlled. Afebrile. WBC 14 down to 13.6 Hgb 12 Patient seen and examined with Dr. back PHYSICAL EXAM: VITAL SIGNS: Reviewed. GENERAL: Well-developed in no acute distress. HEENT: No sclera icterus. Extraocular movements grossly intact. Moist buccal mucosa. Head is atraumatic, normocephalic. ABDOMEN: Soft. Decrease in abdominal distention. Incision with clearish with brownish dried blood drainage. No erythema. No purulent discharge noted. Ostomy with stool and air NEUROLOGIC: Awake and alert ASSESSMENT: 1. Sigmoid colon obstruction and massive colonic and small bowel dilatation status post decompression of colon and small bowel with diverting transverse loop colostomy PLAN: -Discontinue NG tube -Discontinue Garner catheter -Start clear liquid diet -continue antibiotics per ID -Continue pain medication as needed -Encourage patient to ambulate -Incision cleaned and new dressing applied Physician [employer] note has been reviewed by physician. Signing provider agrees with the documented findings, assessment, and plan of care. Objective - Vital Signs Vital signs: Vital Signs Temp 97.9 F 04/25/21 07:01 Pulse 97 04/25/21 07:01 Resp 18 04/25/21 07:01 BP 155/65 04/25/21 07:01 Pulse Ox 97 04/25/21 07:01 Intake & Output 04/24/21 04/25/21 04/25/21 18:59 06:59 18:59 Intake Total 474 0 Output Total 990 1300 350 Balance -516 -1300 -350 Weight 133.5 kg Intake: IV 260 KVO 160 metroNIDAZOLE-NS PMX 500 100 mg In Saline 1 100ml.bag @ 100 mls/hr IVPB Q8H [facility] Rx#:[id number] Intake, IV Titration 200 Amount Cefepime 2 gm In Sodium 200 Chloride 0.9% 100 ml @ 25 mls/hr IVPB Q8HR [facility] Rx# :[id number] Oral 0 Tube Feeding 14 Output: Urine 990 1300 350 Uretheral (Garner) 350 Other: Voiding Method Indwelling Catheter Indwelling Catheter Indwelling Catheter - Labs CBC & Chem 7: 04/25/21 05:59 04/24/21 07:04 Labs: Abnormal Lab Results - Last 24 Hours (Table) 04/24/21 04/25/21 04/25/21 Range/Units 12:50 05:59 05:59 WBC 13.6 H (3.8-10.6) k/uL RBC 4.03 L (4.30-5.90) m/uL Hgb 12.0 L (13.0-17.5) gm/dL Hct 36.4 L (39.0-53.0) % Neutrophils # (Manual) 9.30 H (1.3-7.7) k/uL Monocytes # (Manual) 1.63 H (0-1.0) k/uL Metamyelocytes # (Man) 0.68 H (0) k/uL Myelocytes # (Manual) 0.27 H (0) k/uL POC Glucose (mg/dL) 177 H (75-99) mg/dL Triglycerides 275.00 H (0.00-149.00) mg/dL 04/25/21 Range/Units 12:13 WBC (3.8-10.6) k/uL RBC (4.30-5.90) m/uL Hgb (13.0-17.5) gm/dL Hct (39.0-53.0) % Neutrophils # (Manual) (1.3-7.7) k/uL Monocytes # (Manual) (0-1.0) k/uL Metamyelocytes # (Man) (0) k/uL Myelocytes # (Manual) (0) k/uL POC Glucose (mg/dL) 154 H (75-99) mg/dL Triglycerides (0.00-149.00) mg/dL Microbiology - Last 24 Hours (Table) 04/20/21 02:45 Blood Culture - Preliminary Blood No Growth after 120 hours 04/20/21 02:30 Blood Culture - Preliminary Blood No Growth after 120 hours
[2021-04-25] MEDS: METOPROLOL TARTRATE 50 MG TAB PO SCH ×2 (15:34→21:11)
[2021-04-25] MEDS: amLODIPine 10 MG TAB PO SCH (15:35)
[2021-04-25] MEDS ORDERED: IPRATROPIUM-ALBUTEROL 3 ML NEB INHALATION PRN (15:51)
[2021-04-25 16:12] LABS: AST 43 U/L (14-35); African American GFR (CKD) 134.8 (60.0-200.0); Albumin 2.6 g/dL (3.8-4.9); Albumin/Globulin Ratio 1.28 (1.60-3.17); BUN/Creat Ratio 26.39 Ratio (12.00-20.00); Blood Urea Nitrogen 18.5 mg/dL (9.0-27.0); Calcium 8.4 mg/dL (8.7-10.3); Carbon Dioxide 23.3 mmol/L (21.6-31.8); Chloride 107 mmol/L (96-109); Globulin 2.1 g/dL (1.6-3.3); Glucose 174 mg/dL (70-110); Non-African American GFR(CKD) 116.3 (60.0-200.0); Potassium 3.6 mmol/L (3.5-5.5); Sodium 145 mmol/L (135-145); Total Bilirubin <0.20 mg/dL (0.30-1.20); Total Protein 4.7 g/dL (6.2-8.2)
[2021-04-25 16:13] LABS: ALT 38 U/L (10-49); Alkaline Phosphatase 76 U/L (41-126)
--- NOTE | 2021-04-25 17:27 | PN ---
PROGRESS NOTE DATE OF SERVICE: 04/25/2021. This 40-year-old gentleman who was admitted with acute sigmoid bowel obstruction is on IV antibiotics. Patient still has an NG tube. No chest pain. No palpitations. No fever. PHYSICAL EXAMINATION: Alert and oriented x3. Pulse 100, blood pressure 157/105, respiration 19, temperature 98.5, pulse ox 99% on room air. HEENT: Conjunctivae normal. NECK: No jugular venous distention. CARDIOVASCULAR: S1, S2 muffled. RESPIRATION: Breath sounds diminished at the bases. A few scattered rhonchi. ABDOMEN: Soft, obese. LEGS: No edema. No swelling. NERVOUS SYSTEM: No focal deficit. LABS: WBC 13.7, hemoglobin is 12. ASSESSMENT: 1. Acute sigmoid bowel obstruction, status post diverting and transverse loop colostomy as well as decompression of the colon and small bowel. 2. Acute toxic megacolon with acute severe sepsis, present on admission. 3. Accelerated hypertension. 4. Acute hypoxic respiratory failure. 5. Acute metabolic acidosis, present on admission. 6. Lactic acidosis. 7. Hypocalcemia, present on admission. 8. Hypertension. 9. Hyperkalemia, present on admission. 10.Increased white count. 11.Elevated hemoglobin, possibly polycythemia. 12.History of asthma. 13.History of diverticulitis. 14.History of nicotine dependence. 15.Obesity with body mass index of 37.6. 16.FULL CODE. RECOMMENDATIONS AND DISCUSSION: I recommend to continue current medications, continue with symptomatic treatment. Otherwise at this time I would recommend continuing the antibiotics. Will add Norvasc to the current regimen and monitor blood pressure closely. See orders for further details. Guarded prognosis. Further recommendations to follow. MMODL / IJN: [id number] /
[2021-04-25 17:59] LABS: Glucose,Whole Blood 142 mg/dL (75-99)
--- NOTE | 2021-04-25 18:13 | XR ---
EXAMINATION TYPE: XR chest 1V portable DATE OF EXAM: 04/25/2021 CLINICAL HISTORY: Short of breath. TECHNIQUE: Portable frontal view of the chest. COMPARISON: 04/23/2021 FINDINGS: There is a redemonstrated left internal jugular central venous catheter with distal tip co ursing cranially over the region of the right subclavian and superior vena cava confluence. Low lung volumes. The cardiomediastinal silhouette is within normal limits for size. Pulmonary vasculature is normal. Haziness of the left costophrenic angle. Left basilar patchy airspace opacity. No pneumothora x seen. No acute displaced osseous fracture. IMPRESSION: Haziness of the left costophrenic angle may represent small left pleural effusion versus atelectasis due to low lung volumes.
[2021-04-25] MEDS: IPRATROPIUM-ALBUTEROL 3 ML NEB INHALATION SCH (20:11)
--- NOTE | 2021-04-25 22:24 | PN ---
PROGRESS NOTE DATE OF SERVICE: 04/25/2021 REASON FOR FOLLOWUP: Abdominal infection. INTERVAL HISTORY: The patient is afebrile. The patient is currently breathing comfortably. Abdominal pain is currently controlled. No chest pain, shortness of breath or cough. No nausea, vomiting. PHYSICAL EXAMINATION: Blood pressure 151/88 with a pulse of 105, temperature 99.3. He is 97% on 2 L nasal cannula. General description is a middle-aged male lying in bed in no distress. Respiratory system: Unlabored breathing, clear to auscultation anteriorly. Heart S1, S2. Regular rate and rhythm. Abdomen soft, mildly tender. No guarding or rigidity. LABS: Hemoglobin is 12, white count 13.6, creatinine 0.7. DIAGNOSTIC IMPRESSION AND PLAN: Patient with a fever postoperatively in this patient who did have significant obstruction, status post laparotomy and diverting colostomy. The patient is on cefepime and Flagyl; to continue. Transition to oral antibiotic on discharge. Continue with supportive care. MMODL / IJN: [id number] /
[2021-04-26 00:19] LABS: Glucose,Whole Blood 181 mg/dL (75-99)
[2021-04-26] MEDS: CEFEPIME 2 GM in SODIUM CHLORIDE 0.9% 100 ML IVPB SCH ×3 (01:20→16:03)
[2021-04-26] MEDS: SODIUM ACETATE IV SCH ×12 (03:26→13:59)
[2021-04-26] MEDS: MVI IV SCH ×12 (03:26→13:59)
[2021-04-26] MEDS: [UNRECOGNIZED DRUG - OTHER] IV SCH ×12 (03:26→13:59)
[2021-04-26] MEDS: POTASSIUM PHOSPHATE IV SCH ×12 (03:26→13:59)
[2021-04-26] MEDS: CALCIUM GLUCONATE IV SCH ×12 (03:26→13:59)
[2021-04-26] MEDS: metroNIDAZOLE-NS PMX 500 MG in SALINE 1 100ML.BAG IVPB SCH ×3 (04:25→20:25)
[2021-04-26 06:28] LABS: HCT 37.6 % (39.0-53.0); HGB 12.5 gm/dL (13.0-17.5); MCH 29.9 pg (25.0-35.0); MCHC 33.3 g/dL (31.0-37.0); MCV 89.9 fL (80.0-100.0); Mean Platelet Volume 6.9; Platelet Count 303 k/uL (150-450); RBC 4.19 m/uL (4.30-5.90); RDW 12.8 % (11.5-15.5); WBC 16.4 k/uL (3.8-10.6)
[2021-04-26 06:32] LABS: Magnesium 1.9 mg/dL (1.6-2.3); Phosphorus 3.9 mg/dL (2.5-4.5)
[2021-04-26 06:35] LABS: Glucose,Whole Blood 123 mg/dL (75-99)
[2021-04-26 06:45] LABS: Band Neutrophils % 6 %; Lymphocytes # (M) 2.13 k/uL (1.0-4.8); Metamyelocytes # (M) 0.82 k/uL (0); Metamyelocytes % 5 %; Monocytes # (M) 0.66 k/uL (0-1.0); Myelocytes # (M) 0.16 k/uL (0); Myelocytes % 1 %; Neutrophils % (M) 71 %; Nucleated Red Blood Cells 0 /100 WBC (0-0); Total Cells Counted 200
[2021-04-26 06:46] LABS: Toxic Granulation Present
[2021-04-26] MEDS: IPRATROPIUM-ALBUTEROL 3 ML NEB INHALATION SCH ×3 (07:42→20:18)
[2021-04-26] MEDS: METOPROLOL TARTRATE 50 MG TAB PO SCH ×2 (08:04→20:25)
[2021-04-26] MEDS: ENOXAPARIN 40 MG/0.4 ML SYRINGE SQ SCH (08:04)
[2021-04-26] MEDS: amLODIPine 10 MG TAB PO SCH (08:07)
[2021-04-26] MEDS ORDERED: amLODIPine 10 MG TAB PO SCH (09:00)
[2021-04-26] MEDS: PANTOPRAZOLE 40 MG/10 ML VIAL IVP SCH (09:17)
[2021-04-26 09:48] LABS: African American GFR (CKD) 143.7 (60.0-200.0); Albumin 2.7 g/dL (3.8-4.9); Albumin/Globulin Ratio 1.23 (1.60-3.17); Anion Gap 11.3 mmol/L (4.00-12.00); Calcium 8.1 mg/dL (8.7-10.3); Carbon Dioxide 24.7 mmol/L (21.6-31.8); Globulin 2.2 g/dL (1.6-3.3); Potassium 3.3 mmol/L (3.5-5.5); Total Bilirubin 0.3 mg/dL (0.30-1.20); Total Protein 4.9 g/dL (6.2-8.2)
[2021-04-26] MEDS: HYDROmorphone 1 MG/ML 1 ML SYRINGE IVP PRN (10:23)
[2021-04-26 12:48] LABS: Glucose,Whole Blood 128 mg/dL (75-99)
[2021-04-26] MEDS: POTASSIUM CHLORIDE 20 MEQ in WATER FOR INJECTION 1 100ML.BAG IVPB SCH ×2 (13:50→16:03)
--- NOTE | 2021-04-26 14:19 | P.PN ---
Subjective Progress Note Date: 04/26/21 CHIEF COMPLAINT: Abdominal pain and abdominal distention HISTORY OF PRESENT ILLNESS: Patient is status post decompression of colon and small bowel with diverting transverse loop colostomy for sigmoid colon obstruction and massive colonic and small bowel dilatation. Postop day #6. Patient reports 8 he is feeling fairly good today. His pain is controlled. Denies any nausea or vomiting. Ostomy is functioning. Tolerating clear liquid diet. NG tube was discontinued yesterday. Patient is having some drainage from the incision site. Afebrile. Patient did have mild tachycardia. This morning now resolved. WBC is up from 13.6-16.4 hemoglobin 12.5 potassium 3.3 Patient seen and examined with Dr. back PHYSICAL EXAM: VITAL SIGNS: Reviewed. GENERAL: Well-developed in no acute distress. HEENT: No sclera icterus. Extraocular movements grossly intact. Moist buccal mucosa. Head is atraumatic, normocephalic. ABDOMEN: Soft. Decrease in abdominal distention. Incision with yellowish pur ulent discharge noted above the umbilicus and just below the umbilicus. Some dark discoloration noted at the umbilicus. Patient does have minimal tenderness to palpation of the incision NEUROLOGIC: Awake and alert ASSESSMENT: 1. Sigmoid colon obstruction and massive colonic and small bowel dilatation status post decompression of colon and small bowel with diverting transverse loop colostomy PLAN: -Advance diet to full liquids and then as tolerated -Wean patient off of TPN -manager laundry to rrange home care for patient -continue antibiotics per ID -Continue pain medication as needed -Encourage patient to ambulate -3 irineo removed above the umbilicus and 2 irineo removed below the umbilicus with minimal serous drainage. Cultures were obtained. Physician Railway Patrol Officer note has been reviewed by physician. Signing provider agrees with the documented findings, assessment, and plan of care. Objective - Vital Signs Vital signs: Vital Signs Temp 98.6 F 04/26/21 13:00 Pulse 81 04/26/21 13:00 Resp 18 04/26/21 13:00 BP 143/90 04/26/21 13:00 Pulse Ox 97 04/26/21 13:00 Intake & Output 04/25/21 04/26/21 04/26/21 18:59 06:59 18:59 Intake Total 1035 400 Output Total 900 600 Balance 135 -200 Intake: Intake, IV Titration 1035 Amount Sodium Acetate 20 meq 1035 Potassium Phosphate 12 mmol Calcium Gluconate 1 gm Mvi, Adult No.4 with Vit K 10 ml Trace (Conc- 1Ml/Dose) 1 ml In Amino Acid 5%-D15w 1,000 ml @ 90 mls/hr IV .BY DURATION [facility] Rx#:[id number] Oral 400 Output: Urine 900 Uretheral (Garner) 350 Stool 600 Other: Voiding Method Indwelling Catheter Urinal Urinal # Voids 3 4 # Bowel Movements 1 - Labs CBC & Chem 7: 04/26/21 05:57 04/26/21 05:57 Labs: Abnormal Lab Results - Last 24 Hours (Table) 04/25/21 04/25/21 04/26/21 Range/Units 05:59 17:56 00:17 WBC (3.8-10.6) k/uL RBC (4.30-5.90) m/uL Hgb (13.0-17.5) gm/dL Hct (39.0-53.0) % Neutrophils # (Manual) (1.3-7.7) k/uL Metamyelocytes # (Man) (0) k/uL Myelocytes # (Manual) (0) k/uL Potassium (3.5-5.5) mmol/L Anion Gap 14.00 H (4.00-12.00) mmol/L BUN/Creatinine Ratio 26.39 H (12.00-20.00) Ratio Glucose 174 H (70-110) mg/dL POC Glucose (mg/dL) 142 H 181 H (75-99) mg/dL Calcium 8.4 L (8.7-10.3) mg/dL Total Bilirubin <0.20 L (0.30-1.20) mg/dL AST 43 H (14-35) U/L Total Protein 4.7 L (6.2-8.2) g/dL Albumin 2.6 L (3.8-4.9) g/dL Albumin/Globulin Ratio 1.28 L (1.60-3.17) g/dL 04/26/21 04/26/21 04/26/21 Range/Units 05:57 05:57 06:22 WBC 16.4 H (3.8-10.6) k/uL RBC 4.19 L (4.30-5.90) m/uL Hgb 12.5 L (13.0-17.5) gm/dL Hct 37.6 L (39.0-53.0) % Neutrophils # (Manual) 12.60 H (1.3-7.7) k/uL Metamyelocytes # (Man) 0.82 H (0) k/uL Myelocytes # (Manual) 0.16 H (0) k/uL Potassium 3.3 L (3.5-5.5) mmol/L Anion Gap (4.00-12.00) mmol/L BUN/Creatinine Ratio 25.00 H (12.00-20.00) Ratio Glucose 135 H (70-110) mg/dL POC Glucose (mg/dL) 123 H (75-99) mg/dL Calcium 8.1 L (8.7-10.3) mg/dL Total Bilirubin (0.30-1.20) mg/dL AST 45 H (14-35) U/L Total Protein 4.9 L (6.2-8.2) g/dL Albumin 2.7 L (3.8-4.9) g/dL Albumin/Globulin Ratio 1.23 L (1.60-3.17) g/dL 04/26/21 Range/Units 12:46 WBC (3.8-10.6) k/uL RBC (4.30-5.90) m/uL Hgb (13.0-17.5) gm/dL Hct (39.0-53.0) % Neutrophils # (Manual) (1.3-7.7) k/uL Metamyelocytes # (Man) (0) k/uL Myelocytes # (Manual) (0) k/uL Potassium (3.5-5.5) mmol/L Anion Gap (4.00-12.00) mmol/L BUN/Creatinine Ratio (12.00-20.00) Ratio Glucose (70-110) mg/dL POC Glucose (mg/dL) 128 H (75-99) mg/dL Calcium (8.7-10.3) mg/dL Total Bilirubin (0.30-1.20) mg/dL AST (14-35) U/L Total Protein (6.2-8.2) g/dL Albumin (3.8-4.9) g/dL Albumin/Globulin Ratio (1.60-3.17) g/dL Microbiology - Last 24 Hours (Table) 04/20/21 02:45 Blood Culture - Final Blood No Growth after 144 hours 04/20/21 02:30 Blood Culture - Final Blood No Growth after 144 hours
[2021-04-26] MEDS ORDERED: 1: MVI, ADULT NO.4 WITH VIT K 10 ML, TRACE (CONC-1ML/DOSE) 1 ML, PARENTERAL ELECTROLYTES IV SCH ×5 (15:00)
[2021-04-26] MEDS ORDERED: Magnesium Replacement Protocol 1 EACH MISC MISCELLANE PRN (15:05)
[2021-04-26] MEDS ORDERED: Potassium Replacement Protocol 1 EACH MISC MISCELLANE PRN (15:05)
[2021-04-26 17:46] LABS: Glucose,Whole Blood 93 mg/dL (75-99)
[2021-04-26] MEDS ORDERED: FAT EMULSION 20% 250 ML in EMPTY BAG 1 BAG IV SCH (18:00)
--- NOTE | 2021-04-26 18:01 | PN ---
PROGRESS NOTE DATE OF SERVICE: 04/26/2021 This 40-year-old gentleman who was admitted with acute sigmoid bowel obstruction, status post diverting and transverse loop colostomy is improving at this time. The blood pressure medications were adjusted. Blood pressure is well controlled at this time. No chest pain. No palpitations. No fever. PHYSICAL EXAMINATION: Alert and oriented x3. The pulse is 97, blood pressure 120/83, respirations 16, temperature 99.3, pulse ox 97% on room air. HEENT: Conjunctivae normal. Neck: No JVD. Cardiovascular: S1, S2. Respirations: Breath sounds diminished in the bases. No rhonchi. No crackles. Abdomen: Soft, obese status post surgery. Legs: No edema. No swelling. Nervous system: No focal deficits. LABORATORY DATA: WBC 16.5, hemoglobin 12.5, sodium 142, potassium 3.3 and noted. ASSESSMENT: 1. Acute sigmoid bowel obstruction, status post diverting transverse loop colostomy as well as decompression of the colon and small bowel. 2. Acute toxic megacolon with acute severe sepsis, present on admission. 3. Accelerated hypertension. 4. Hypokalemia. 5. Acute hypoxic respiratory failure, improved. 6. Acute metabolic acidosis, present on admission. 7. Lactic acidosis. 8. Hypocalcemia, present on admission. 9. Hypertension. 10.Hyperkalemia, present on admission. 11.Increased WBC. 12.Elevated hemoglobin, possibly polycythemia. 13.History of asthma. 14.History of diverticulitis. 15.History of nicotine dependence. 16.Obesity with body mass index of 37.6. 17.FULL CODE. RECOMMENDATIONS AND DISCUSSION: I recommend to continue current medications, symptomatic treatment. Otherwise, at this time, we will monitor the patient closely. Supplement potassium. Otherwise continue the TPN. Repeat lytes. Guarded prognosis because of multiple complex medical issues and continue with Norvasc and hold if the blood pressure is low and continue to monitor. MMODL / IJN: [id number] / MTDD
[2021-04-26] MEDS ORDERED: FLUCONAZOLE 100 MG TAB PO ONE (22:24)
[2021-04-27] MEDS: CEFEPIME 2 GM in SODIUM CHLORIDE 0.9% 100 ML IVPB SCH ×3 (03:49→16:50)
[2021-04-27] MEDS: IPRATROPIUM-ALBUTEROL 3 ML NEB INHALATION SCH ×3 (09:27→21:27)
--- NOTE | 2021-04-27 10:02 | PN ---
PROGRESS NOTE DATE OF SERVICE: 04/26/2021 REASON FOR FOLLOWUP: Abdominal infection. INTERVAL HISTORY: The patient is afebrile. The patient is currently breathing comfortably. The patient denies having any chest pain or shortness of breath or cough. Abdominal pain is did have output in his colostomy bag. No vomiting PHYSICAL EXAMINATION: Blood pressure 126/81 with a pulse of 98, temperature 98.7. He is 96% on room air. General description is a middle-aged male lying in bed in no distress. Respiratory system: Unlabored breathing, decreased intensity of breath sounds. No wheeze. Heart S1, S2. Regular rate and rhythm. Abdomen soft. No guarding or rigidity. No organomegaly. LABS: Hemoglobin is 12.5, white count 16.4 with creatinine 0.6. DIAGNOSTIC IMPRESSION AND PLAN: Patient with a postoperative fever in this patient who did have a high-grade distal obstruction, status post diverting colostomy. No mention of any perforation. Patient is on cefepime and Flagyl, with worsening of the white count. Will add Diflucan and monitor his clinical course closely. Continue supportive care. MMODL / IJN: [id number] /
[2021-04-27] MEDS: ENOXAPARIN 40 MG/0.4 ML SYRINGE SQ SCH (10:03)
[2021-04-27] MEDS: METOPROLOL TARTRATE 50 MG TAB PO SCH ×2 (10:05→21:48)
[2021-04-27] MEDS: FLUCONAZOLE 100 MG TAB PO SCH (10:07)
[2021-04-27] MEDS: metroNIDAZOLE 500 MG TAB PO SCH ×2 (10:07→16:50)
[2021-04-27] MEDS: amLODIPine 10 MG TAB PO SCH (10:07)
[2021-04-27 10:29] LABS: Basophils # (A) 0.1 k/uL (0-0.2); Basophils % (A) 1 %; Eosinophils # (A) 0.3 k/uL (0-0.7); Eosinophils % (A) 2 %; HCT 39.9 % (39.0-53.0); Lymphocytes # (A) 2.7 k/uL (1.0-4.8); Lymphocytes % (A) 17 %; MCH 29.9 pg (25.0-35.0); MCHC 32.6 g/dL (31.0-37.0); MCV 91.8 fL (80.0-100.0); Mean Platelet Volume 7.2; Monocytes # (A) 0.6 k/uL (0-1.0); Monocytes % (A) 4 %; Neutrophils % (A) 76 %; Platelet Count 391 k/uL (150-450); RBC 4.34 m/uL (4.30-5.90); WBC 15.8 k/uL (3.8-10.6)
[2021-04-27 10:39] LABS: African American GFR (CKD) >90 (>60 ml/min/1.73 sqM); Anion Gap 9 mmol/L; Blood Urea Nitrogen 16 mg/dL (9-20); Calcium 8.6 mg/dL (8.4-10.2); Carbon Dioxide 26 mmol/L (22-30); Chloride 104 mmol/L (98-107); Glucose 148 mg/dL (74-99); Magnesium 2.1 mg/dL (1.6-2.3); Non-African American GFR(CKD) >90 (>60 ml/min/1.73 sqM); Phosphorus 3.4 mg/dL (2.5-4.5); Potassium 3.5 mmol/L (3.5-5.1); Sodium 139 mmol/L (137-145)
[2021-04-27] MEDS ORDERED: POTASSIUM CHLORIDE ER 20 MEQ TAB.ER PO STA (11:02)
[2021-04-27] MEDS ORDERED: HYDROcodone/APAP 5-325MG 1 EACH TAB PO PRN (11:48)
[2021-04-27] MEDS: PANTOPRAZOLE 40 MG TABLET PO SCH (12:54)
--- NOTE | 2021-04-27 13:35 | P.PN ---
Subjective Progress Note Date: 04/27/21 CHIEF COMPLAINT: Abdominal pain and abdominal distention HISTORY OF PRESENT ILLNESS: Patient is status post decompression of colon and small bowel with diverting transverse loop colostomy for sigmoid colon obstruction and massive colonic and small bowel dilatation. Postop day #7. Patient reports that his pain is controlled. His ostomy is functioning. He denies any nausea vomiting. His TPN has been weaned off. He did receive oatmeal for breakfast this morning. Patient is supposed to work with the ostomy nurse for further education on on his ostomy today. Afebrile. WBC has trended down from 16.4-15.8 potassium 3.5 and being replaced. Patient does still have some drainage from incision site. Culture results pending Patient seen and examined with Dr. back PHYSICAL EXAM: VITAL SIGNS: Reviewed. GENERAL: Well-developed in no acute distress. HEENT: No sclera icterus. Extraocular movements grossly intact. Moist buccal mucosa. Head is atraumatic, normocephalic. ABDOMEN: Soft. Mild abdominal distention. Incision with yellowish purulent discharge noted above the umbilicus and just below the umbilicus. Some dark discoloration noted at the umbilicus. Nontender incision site NEUROLOGIC: Awake and alert ASSESSMENT: 1. Sigmoid colon obstruction and massive colonic and small bowel dilatation status post decompression of colon and small bowel with diverting transverse loo p colostomy 2. Hypokalemia PLAN: -Advance diet to regular -Further ostomy teaching today -global transportation manager to arrange home care for patient -Awaiting discharge antibiotic recommendations per ID -Continue pain medication as needed -Encourage patient to ambulate -Possible discharge tomorrow -Replace potassium Physician Therapy Manager note has been reviewed by physician. Signing provider agrees with the documented findings, assessment, and plan of care. Objective - Vital Signs Vital signs: Vital Signs Temp 98.6 F 04/27/21 12:15 Pulse 96 04/27/21 12:42 Resp 20 04/27/21 12:15 BP 115/80 04/27/21 12:15 Pulse Ox 96 04/27/21 12:15 Intake & Output 04/26/21 04/27/21 04/27/21 18:59 06:59 18:59 Intake Total 100 Output Total 250 750 Balance -150 -750 Intake: IV 100 metroNIDAZOLE-NS PMX 500 100 mg In Saline 1 100ml.bag @ 100 mls/hr IVPB Q8H [facility] Rx#:[id number] Output: Urine 250 250 Stool 500 Other: Voiding Method Urinal Urinal # Voids 3 3 # Bowel Movements 1 1 - Labs CBC & Chem 7: 04/27/21 10:20 04/27/21 10:20 Labs: Abnormal Lab Results - Last 24 Hours (Table) 04/27/21 04/27/21 Range/Units 10:20 10:20 WBC 15.8 H (3.8-10.6) k/uL Neutrophils # 12.0 H (1.3-7.7) k/uL Glucose 148 H (74-99) mg/dL Microbiology - Last 24 Hours (Table) 04/26/21 12:15 Gram Stain - Preliminary Abdomen Wound Culture - Preliminary
--- NOTE | 2021-04-27 16:00 | PN ---
PROGRESS NOTE DATE OF SERVICE: 04/27/2021 This 40-year-old gentleman who was admitted acute sigmoid bowel obstruction, status post diverting colostomy, is being closely monitored. The patient also had hypertension, for which he is on multiple medications. Blood pressure is fairly well controlled. No chest pain. No palpitations. No fever. PHYSICAL EXAMINATION: Alert and oriented x3. Pulse 95, blood pressure 115/80, respiration 20 temperature 98.6, pulse ox 96% on room air. HEENT: Conjunctivae normal. NECK: No jugular venous distention. CARDIOVASCULAR: S1, S2 muffled. RESPIRATION: Breath sounds diminished at the bases. A few scattered rhonchi. ABDOMEN: Soft, obese. LEGS: No edema. No swelling. NERVOUS SYSTEM: No focal deficit. LABS: WBC 15.8, hemoglobin 13. ASSESSMENT: 1. Acute sigmoid bowel obstruction, status post diverting transverse loop colostomy as well as decompression of the colon and small bowel. 2. Acute toxic megacolon with acute severe sepsis, present on admission. 3. Accelerated hypertension, improving. 4. Hypokalemia. 5. Acute hypoxic respiratory failure, improved. 6. Acute metabolic acidosis, present on admission. 7. Lactic acidosis. 8. Hypocalcemia, present on admission. 9. Hypertension. 10.Hyperkalemia, present on admission. 11.Increased white count. 12.Elevated hemoglobin with possible polycythemia. 13.History of asthma. 14.History of diverticulitis. 15.History of nicotine dependence. 16.Obesity with a body mass index of 37.6. 17.FULL CODE. RECOMMENDATIONS AND DISCUSSION: I recommend to continue current medications, continue with symptomatic treatment. Otherwise, incentive spirometry. Continue the blood pressure medications. Guarded prognosis. Further recommendations to follow. Recommend close followup with Dr. Martinez, who is the primary physician. MMODL / IJN: [id number] /
--- NOTE | 2021-04-27 16:15 | PN ---
PROGRESS NOTE DATE OF SERVICE: 04/27/2021 REASON FOR FOLLOWUP: Abdominal infection. INTERVAL HISTORY: The patient is afebrile. The patient is breathing comfortably. The patient denies having any chest pain, shortness of breath or cough. Abdominal pain is currently controlled. No vomiting or diarrhea. PHYSICAL EXAMINATION: Blood pressure 115/80 with a pulse of 95, temperature 98.6. He is % on room air. General description is a middle-aged male lying in bed in no distress. Respiratory system: Unlabored breathing, clear to auscultation anteriorly. Heart S1, S2. Regular rate and rhythm. Abdomen soft, no tenderness. LABS: Hemoglobin is 13, white count 15.8, creatinine 0.73. DIAGNOSTIC IMPRESSION AND PLAN: Patient admitted to hospital with abdominal pain, obstruction, status post diverting colostomy. Patient's white count responded to addition of Diflucan yesterday. To continue with cefepime, diflucan and Flagyl. Transition to oral antibiotic on discharge and close outpatient followup. Continue with supportive care. MMODL / IJN: [id number] /
[2021-04-28] MEDS: CEFEPIME 2 GM in SODIUM CHLORIDE 0.9% 100 ML IVPB SCH ×3 (00:09→15:40)
[2021-04-28] MEDS: metroNIDAZOLE 500 MG TAB PO SCH ×3 (00:09→15:39)
[2021-04-28] MEDS: IPRATROPIUM-ALBUTEROL 3 ML NEB INHALATION SCH ×2 (08:00→12:16)
[2021-04-28 08:24] LABS: Basophils # (A) 0.1 k/uL (0-0.2); Basophils % (A) 0 %; Eosinophils # (A) 0.3 k/uL (0-0.7); Eosinophils % (A) 2 %; HCT 37.1 % (39.0-53.0); HGB 12.1 gm/dL (13.0-17.5); Lymphocytes % (A) 15 %; MCHC 32.7 g/dL (31.0-37.0); MCV 91.6 fL (80.0-100.0); Mean Platelet Volume 7.3; Monocytes # (A) 0.7 k/uL (0-1.0); Monocytes % (A) 5 %; Neutrophils # (A) 10.4 k/uL (1.3-7.7); Neutrophils % (A) 77 %; Platelet Count 337 k/uL (150-450); RBC 4.04 m/uL (4.30-5.90); RDW 12.9 % (11.5-15.5); WBC 13.6 k/uL (3.8-10.6)
[2021-04-28 08:34] LABS: ALT 44 U/L (4-49); AST 34 U/L (17-59); African American GFR (CKD) >90 (>60 ml/min/1.73 sqM); Albumin 2.5 g/dL (3.5-5.0); Albumin/Globulin Ratio 0.9; Alkaline Phosphatase 79 U/L (38-126); Anion Gap 4 mmol/L; Blood Urea Nitrogen 13 mg/dL (9-20); Calcium 8.1 mg/dL (8.4-10.2); Carbon Dioxide 27 mmol/L (22-30); Chloride 107 mmol/L (98-107); Globulin 2.7 g/dL; Glucose 115 mg/dL (74-99); Magnesium 2.1 mg/dL (1.6-2.3); Non-African American GFR(CKD) >90 (>60 ml/min/1.73 sqM); Phosphorus 3.9 mg/dL (2.5-4.5); Potassium 3.7 mmol/L (3.5-5.1); Sodium 138 mmol/L (137-145); Total Bilirubin 0.4 mg/dL (0.2-1.3); Total Protein 5.2 g/dL (6.3-8.2)
[2021-04-28] MEDS: METOPROLOL TARTRATE 50 MG TAB PO SCH (08:40)
[2021-04-28] MEDS: FLUCONAZOLE 100 MG TAB PO SCH (08:40)
[2021-04-28] MEDS: amLODIPine 10 MG TAB PO SCH (08:41)
[2021-04-28] MEDS: PANTOPRAZOLE 40 MG TABLET PO SCH (08:41)
[2021-04-28] MEDS: ENOXAPARIN 40 MG/0.4 ML SYRINGE SQ SCH (09:24)
[2021-04-28] MEDS ORDERED: Potassium Replacement Protocol 1 EACH MISC MISCELLANE PRN (10:18)
[2021-04-28] MEDS ORDERED: POTASSIUM CHLORIDE ER 20 MEQ TAB.ER PO SCH (11:00)
[2021-04-28 11:52] VITALS: BP 123/73; RESP 20; TEMP 97.7
[2021-04-28 12:27] VITALS: PULSE 98
--- NOTE | 2021-04-28 15:02 | P.DS ---
Providers Date of admission: 04/20/21 00:34 Expected date of discharge: 04/28/21 Attending physician: Rodrigo Pena Consults: 04/20/21 10:03 Consult Physician Routine Consulting Provider: Poppy Cruz Consult Reason/Comments: medical management Do you want consulting provider notified?: Yes 04/20/21 18:52 Consult Physician Urgent Consulting Provider: Shaw Adams Consult Reason/Comments: ICU management Do you want consulting provider notified?: Yes 04/20/21 21:34 Consult Physician Routine Consulting Provider: Lukasz Roper Consult Reason/Comments: sepsis Do you want consulting provider notified?: Yes Primary care physician: Stated None Hospital Course: Discharge diagnosis 1. Sigmoid colon obstruction and massive colonic and small bowel dilatation status post decompression of colon and small bowel with diverting transverse loop colostomy 2. Sigmoid colon stricture 3. Hypokalemia Hospital course This is a 40-year-old male who presented to the emergency room with complaints of abdominal distention and pain. He reports symptoms started suddenly yesterday morning. He complains of abdominal pain across the mid abdomen. And significant amount of bloating. He does report that he has been having bowel movements and flatus. However, he has been constipated and did take mag citrate. I'll he did have one episode of vomiting at home. He denies any prior history of bowel obstruction he does have a history of diverticulitis. His last colonoscopy was in December 2019 it did have a poor prep and there was mild narrowing of the sigmoid colon extending from 25-30 cm from the anal verge with mild mucosal thickening and erythema suspicious for diverticular related colitis. Biopsies taken which showed either a previous ulcer or injury to the sigmoid colon. Patient had been tachycardic with elevated WBC and lactic acid. Computed tomography scan had shown dilated large bowel and stricture in the mid sigmoid colon. Patient is status post decompression of colon and small bowel with diverting transverse loop colostomy for sigmoid colon obstruction and massive colonic and small bowel dilatation. Patient tolerated surgery well. He denies any abdominal pain. He is tolerating diet. He is afebrile. He has been ambulating. His ostomy is functioning. Patient does have minimal drainage from the incision site. Patient being discharged home with antibiotics per ID recommendations. He is stable for discharge. Please refer to chart for any further details. Physician Food Service Supervisor note has been reviewed by physician. Signing provider agrees with the documented findings, assessment, and plan of care. Patient Condition at Discharge: Stable Plan - Discharge Summary Discharge Rx Participant: No New Discharge Prescriptions: New Metoprolol Tartrate [Lopressor] 50 mg PO BID #60 tab Cefuroxime Axetil [Ceftin] 500 mg PO BID 7 Days #14 tab metroNIDAZOLE [Flagyl] 500 mg PO Q8HR #21 tab Fluconazole [Diflucan] 200 mg PO DAILY #7 tab Acetaminophen Tab [Tylenol Tab] 650 mg PO Q4H PRN #30 tablet PRN Reason: Pain Continue Umeclidinium Brm/Vilanterol Tr [Anoro Ellipta 62.5-25 Mcg INH] 1 puff INHALATION RT-DAILY PRN PRN Reason: Shortness Of Breath Changed Albuterol Sulfate [Ventolin HFA] 2 puff INHALATION RT-Q6H #1 Discharge Medication List Umeclidinium Brm/Vilanterol Tr [Anoro Ellipta 62.5-25 Mcg INH] 1 puff INHALATION RT-DAILY PRN 04/19/21 [History] Acetaminophen Tab [Tylenol Tab] 650 mg PO Q4H PRN #30 tablet 04/28/21 [Rx] Albuterol Sulfate [Ventolin HFA] 2 puff INHALATION RT-Q6H #1 04/28/21 [Rx] Cefuroxime Axetil [Ceftin] 500 mg PO BID 7 Days #14 tab 04/28/21 [Rx] Fluconazole [Diflucan] 200 mg PO DAILY #7 tab 04/28/21 [Rx] Metoprolol Tartrate [Lopressor] 50 mg PO BID #60 tab 04/28/21 [Rx] metroNIDAZOLE [Flagyl] 500 mg PO Q8HR #21 tab 04/28/21 [Rx] Follow up Appointment(s)/Referral(s): Oscar Martinez MD [REFERRING] - 1 Week [facility], [NON-STAFF] - 1-2 Days Rodrigo Pena MD [STAFF PHYSICIAN] - 1 Week Ambulatory/Diagnostic Orders: Complete Blood Count w/diff [LAB.AMB] Location: None Selected Activity/Diet/Wound Care/Special Instructions: Ostomy last changed: 04/27/21 1 piece cut to fit #[id number] Please get ostomy care instructions from ostomy nurse No lifting over 10 pounds You may shower. No soaking or tub baths for 2 weeks Very light activity until you are reevaluated at your follow up appointment with your surgeon Discharge Disposition: HOME WITH HOME HEALTH SERVICES
--- NOTE | 2021-04-28 17:34 | PN ---
PROGRESS NOTE DATE OF SERVICE: 04/28/2021 REASON FOR FOLLOWUP: Abdominal infection and leukocytosis. INTERVAL HISTORY: The patient is afebrile. The patient is currently breathing comfortably on room air. Denies any chest pain or shortness of breath or cough. Abdominal pain has improved. No vomiting or diarrhea. PHYSICAL EXAMINATION: Blood pressure 123/73 with a pulse of 88, temperature 97.7. He is 97% on room air. General description is a middle-aged male up in the bed in no distress. Respiratory system: Unlabored breathing, clear to auscultation anteriorly. Heart S1, S2. Regular rate and rhythm. Abdomen soft, mildly distended. No guarding or rigidity. LABS: Hemoglobin is 12.1, hematocrit 13.6, creatinine 0.89. DIAGNOSTIC IMPRESSION AND PLAN: Patient with admission to hospital with acute nausea, vomiting, abdominal distention with obstruction, status post diverting colostomy, postoperative fever; abdominal source. Overall improvement with cefepime, Flagyl and Diflucan. White count down to 13. Blood culture negative. Finishing therapy with oral Ceftin, Flagyl and Diflucan combination for about a week. Discussed with the nurse practitioner working on discharge. MMODL / IJN: [id number] /
--- NOTE | 2021-04-28 17:46 | PN ---
PROGRESS NOTE DATE OF SERVICE: 04/28/2021 This 40-year-old gentleman who was admitted with acute small-bowel obstruction had a diverting colostomy. The patient also had hypertension, which is controlled with multiple medications. No chest pain. No palpitations. No fever. PHYSICAL EXAMINATION: Alert and oriented x3. Pulse 88, blood pressure 123/73, respiration 20, temperature 97.7, pulse ox 97% on room air. HEENT: Conjunctivae normal. NECK: No jugular venous distention. CARDIOVASCULAR: S1, S2 muffled. RESPIRATION: Breath sounds diminished at the bases. A few rhonchi. ABDOMEN: Soft, Status post surgery. Obese. LEGS: No edema. No swelling. NERVOUS SYSTEM: No focal deficit. LABS: WBC 13.2, hemoglobin 12.1. ASSESSMENT: 1. Acute sigmoid bowel obstruction, status post diverting and transverse loop colostomy as well as decompression of the colon and small bowel. 2. Acute toxic megacolon with acute severe sepsis, present on admission. 3. Accelerated hypertension, improved. 4. Hypokalemia, improved. 5. Acute hypoxic respiratory failure, improved. 6. Acute metabolic acidosis, present on admission. 7. Acute lactic acidosis. 8. Hypocalcemia, present on admission, improved. 9. Hypertension. 10.Hyperkalemia, present on admission, improved. 11.Increased white count. 12.Elevated hemoglobin with possible polycythemia. 13.History of asthma. 14.History of diverticulitis. 15.History of nicotine dependence. 16.Obesity with body mass index of 37.6. 17.FULL CODE. RECOMMENDATIONS AND DISCUSSION: I recommend to continue current medications, continue with symptomatic treatment. I recommend continuing with the metoprolol and closely follow with Dr. Martinez. Monitor blood pressure closely. Repeat labs. The rest of the recommendations per Surgery. Further recommendations to follow. MMODL / IJN: [id number] /
== END 2021-04-28 17:22 | disposition home or self-care (01) | DRG 853 ==
LOC: EC 21:14 → 4SSUR 04-20 00:34 → 2SICU 04-20 16:34 → 5NMEDONC 04-24 18:22
PROVIDERS: ADMIT Surgery; ATTEND Surgery
PROC: 0D1L0Z4 Bypass Transverse Colon to Cutaneous, Open Approach (ICD-10-PCS; 2021-04-20)
PROC: 0D788ZZ Dilation of Small Intestine, Via Natural or Artificial Opening Endoscopic (ICD-10-PCS; 2021-04-20)
PROC: B5181ZA Fluoroscopy of Superior Vena Cava using Low Osmolar Contrast, Guidance (ICD-10-PCS; 2021-04-20)
PROC: 02HV33Z Insertion of Infusion Device into Superior Vena Cava, Percutaneous Approach (ICD-10-PCS; principal; 2021-04-20 10:10)
DX: A41.9 Sepsis, unspecified organism (principal); J95.821 Acute postprocedural respiratory failure; E87.2 Acidosis; K59.31 Toxic megacolon; K56.699 Other intestinal obstruction unspecified as to partial versus complete obstruction; K57.12 Diverticulitis of small intestine without perforation or abscess without bleeding; J98.11 Atelectasis; Z20.822 Contact with and (suspected) exposure to COVID-19; E66.9 Obesity, unspecified; E83.51 Hypocalcemia; E83.52 Hypercalcemia; E86.0 Dehydration; E87.5 Hyperkalemia; E87.6 Hypokalemia; K59.00 Constipation, unspecified; J45.909 Unspecified asthma, uncomplicated; E87.8 Other disorders of electrolyte and fluid balance, not elsewhere classified; Z88.0 Allergy status to penicillin; R65.20 Severe sepsis without septic shock; R50.82 Postprocedural fever; Z87.891 Personal history of nicotine dependence; Z68.37 Body mass index [BMI] 37.0-37.9, adult; I10 Essential (primary) hypertension
CPT/HCPCS: 36415; 36600; 71045; 74177; 80048; 80053; 80306; 81001; 82150; 82330; 82550; 82803; 82805; 83605; 83690; 83735; 84100; 84478; 85025; 85027; 86850; 86900; 86901; 87040; 87070; 87086; 87205; 87635; 93005; 94002; 94003; 94640; 94760; 96361; 96374; 96376; 99285

== ENCOUNTER 2021-05-17 17:37 | Emergency (ER) | payer MEDICAID ==
--- NOTE | 2021-05-17 18:50 | ED ---
General Adult HPI - General Chief complaint: Recheck/Abnormal Lab/Rx Stated complaint: PostOp Problems Time Seen by Provider: 05/17/21 18:30 Source: patient, family, RN notes reviewed, old records reviewed Mode of arrival: ambulatory Limitations: no limitations - History of Present Illness Initial comments: 40-year-old male, alert and oriented 4, presents to the emergency room with complaints of abdominal incision drainage after colostomy placement s/p diverticulitis. Patient was seen by Dr. Pena yesterday and had the wound packed. He was directed to get Aquacel silver dressing and pack the wound today. His wound care nurse did not come today and was directed to change the dressing himself however his mother would not help him so they came to the emergency room. Patient has a foul-smelling purulent brown discharge coming from the incision site. There is stool in the colostomy noted. He denies any pain, nausea vomiting or diarrhea. He denies any fevers. -: days(s) (2) Location: abdomen Severity scale (1-10): 0 Associated Symptoms: denies other symptoms - Related Data Home Medications Medication Instructions Recorded Confirmed Umeclidinium Brm/Vilanterol Tr 1 puff INHALATION RT-DAILY PRN 04/19/21 04/19/21 [Anoro Ellipta 62.5-25 Mcg INH] Previous Rx's Medication Instructions Recorded Acetaminophen Tab [Tylenol Tab] 650 mg PO Q4H PRN #30 tablet 04/28/21 Albuterol Sulfate [Ventolin HFA] 2 puff INHALATION RT-Q6H #1 04/28/21 Cefuroxime Axetil [Ceftin] 500 mg PO BID 7 Days #14 tab 04/28/21 Fluconazole [Diflucan] 200 mg PO DAILY #7 tab 04/28/21 Metoprolol Tartrate [Lopressor] 50 mg PO BID #60 tab 04/28/21 metroNIDAZOLE [Flagyl] 500 mg PO Q8HR #21 tab 04/28/21 Allergies Allergy/AdvReac Type Severity Reaction Status Date / Time Sulfa (Sulfonamide Allergy Unknown Verified 05/17/21 18:04 Antibiotics) Childhood Review of Systems ROS Statement: Those systems with pertinent positive or pertinent negative responses have been documented in the HPI. ROS Other: All systems not noted in ROS Statement are negative. Past Medical History Past Medical History: Asthma Additional Past Medical History / Comment(s): diverticulitis History of Any Multi-Drug Resistant Organisms: None Reported Past Surgical History: Bowel Resection Additional Past Surgical History / Comment(s): colostomy Past Psychological History: No Psychological Hx Reported Smoking Status: Former smoker Past Alcohol Use History: None Reported Past Drug Use History: None Reported - Past Family History Mother Additional Family Medical History / Comment(s): diverticulitis, head injury, Father Family Medical History: No Reported History General Exam Limitations: no limitations General appearance: alert, in no apparent distress Head exam: Present: atraumatic, normocephalic, normal inspection Eye exam: Present: normal appearance, EOMI ENT exam: Present: normal exam, normal oropharynx, mucous membranes moist Neck exam: Present: normal inspection, full ROM. Absent: tenderness, meningismus, lymphadenopathy Respiratory exam: Present: normal lung sounds bilaterally. Absent: respiratory distress, wheezes, rales, rhonchi, stridor Cardiovascular Exam: Present: regular rate, normal rhythm, normal heart sounds. Absent: systolic murmur, diastolic murmur, rubs, gallop, clicks GI/Abdominal exam: Present: soft, normal bowel sounds, other (Midline incision open draining brown purulent foul-smelling drainage). Absent: distended, guarding, rebound, rigid Back exam: Present: normal inspection, full ROM. Absent: tenderness, CVA tenderness (R), CVA tenderness (L), rash noted Neurological exam: Present: alert, oriented X3 Psychiatric exam: Present: normal affect, normal mood Skin exam: Present: warm, dry, intact, normal color. Absent: rash Course Vital Signs 05/17/21 05/17/21 18:04 20:22 Temperature 99.8 F H 97.8 F Pulse Rate 93 86 Respiratory 20 16 Rate Blood Pressure 126/85 114/67 O2 Sat by Pulse 97 97 Oximetry Medical Decision Making - Medical Decision Making This is a well-appearing 40-year-old male who presents to the emergency room for wound care. He has been having a wound care nurse come to the home to do his dressings however she was unable to come in today.. He did see Dr. Pena yesterday who directed him to have medicated packing placed. He was unable to perform this dressing change himself so he came to the emergency room. The wound care nurse is scheduled to come tomorrow. He does have the appointment with his surgeon next week. He denies any abdominal pain or fevers. A wound culture was sent. Labs show no evidence of leukocytosis. CT the abdomen was done due to the foul-smelling drainage and post surgical colostomy and shows Po stsurgical changes at the umbilicus with adduction of the fat containing umbilical hernia. There is soft tissue air bubbles and patent stranding noted. There is a loop colostomy and clearing or large bowel obstruction compared to old exam. There is is somewhat lobulated appearance of the mid sigmoid colon could relate to a mass that appears unchanged. I did discuss this case with Dr. Newman. Patient will be directed to continue wound care therapy and follow-up with Dr Gould as scheduled and return to the emergency room with any new or concerning symptoms including increased pain or fevers. - Lab Data Result diagrams: 05/17/21 18:56 05/17/21 18:56 Lab Results 05/17/21 05/17/21 05/17/21 Range/Units 18:56 18:56 18:56 WBC 9.8 (3.8-10.6) k/uL RBC 4.34 (4.30-5.90) m/uL Hgb 13.2 (13.0-17.5) gm/dL Hct 39.7 (39.0-53.0) % MCV 91.3 (80.0-100.0) fL MCH 30.5 (25.0-35.0) pg MCHC 33.4 (31.0-37.0) g/dL RDW 13.0 (11.5-15.5) % Plt Count 299 (150-450) k/uL MPV 6.4 Neutrophils % 61 % Lymphocytes % 26 % Monocytes % 8 % Eosinophils % 2 % Basophils % 0 % Neutrophils # 6.0 (1.3-7.7) k/uL Lymphocytes # 2.6 (1.0-4.8) k/uL Monocytes # 0.8 (0-1.0) k/uL Eosinophils # 0.2 (0-0.7) k/uL Basophils # 0.0 (0-0.2) k/uL Sodium 141 (137-145) mmol/L Potassium 4.0 (3.5-5.1) mmol/L Chloride 104 (98-107) mmol/L Carbon Dioxide 26 (22-30) mmol/L Anion Gap 11 mmol/L BUN 17 (9-20) mg/dL Creatinine 0.81 (0.66-1.25) mg/dL Est GFR (CKD-EPI)AfAm >90 (>60 ml/min/1.73 sqM) Est GFR (CKD-EPI)NonAf >90 (>60 ml/min/1.73 sqM) Glucose 108 H (74-99) mg/dL Plasma Lactic Acid Dipesh 1.3 (0.7-2.0) mmol/L Calcium 9.1 (8.4-10.2) mg/dL Total Bilirubin 0.2 (0.2-1.3) mg/dL AST 23 (17-59) U/L ALT 30 (4-49) U/L Alkaline Phosphatase 107 (38-126) U/L Total Protein 6.6 (6.3-8.2) g/dL Albumin 3.7 (3.5-5.0) g/dL Amylase 48 (30-110) U/L Lipase 80 (23-300) U/L Disposition Clinical Impression: Encounter for wound care Disposition: HOME SELF-CARE Condition: Good Additional Instructions: Continue medications as previously prescribed by your surgeon. Follow-up with your doctor as scheduled. Return to the emergency room with any new or concerning symptoms. Is patient prescribed a controlled substance at d/c from ED?: No Referrals: Oscar Martinez MD [Primary Care Provider] - 1-2 days Time of Disposition: 20:43
[2021-05-17 19:05] LABS: Basophils % (A) 0 %; Eosinophils # (A) 0.2 k/uL (0-0.7); Eosinophils % (A) 2 %; HCT 39.7 % (39.0-53.0); HGB 13.2 gm/dL (13.0-17.5); Lymphocytes # (A) 2.6 k/uL (1.0-4.8); Lymphocytes % (A) 26 %; MCH 30.5 pg (25.0-35.0); MCHC 33.4 g/dL (31.0-37.0); MCV 91.3 fL (80.0-100.0); Mean Platelet Volume 6.4; Monocytes # (A) 0.8 k/uL (0-1.0); Monocytes % (A) 8 %; Neutrophils % (A) 61 %; Platelet Count 299 k/uL (150-450); RBC 4.34 m/uL (4.30-5.90); WBC 9.8 k/uL (3.8-10.6)
[2021-05-17 19:13] LABS: ALT 30 U/L (4-49); AST 23 U/L (17-59); African American GFR (CKD) >90 (>60 ml/min/1.73 sqM); Albumin 3.7 g/dL (3.5-5.0); Alkaline Phosphatase 107 U/L (38-126); Amylase 48 U/L (30-110); Anion Gap 11 mmol/L; Blood Urea Nitrogen 17 mg/dL (9-20); Calcium 9.1 mg/dL (8.4-10.2); Carbon Dioxide 26 mmol/L (22-30); Chloride 104 mmol/L (98-107); Glucose 108 mg/dL (74-99); Lipase 80 U/L (23-300); Non-African American GFR(CKD) >90 (>60 ml/min/1.73 sqM); Sodium 141 mmol/L (137-145); Total Bilirubin 0.2 mg/dL (0.2-1.3); Total Protein 6.6 g/dL (6.3-8.2)
--- NOTE | 2021-05-17 19:40 | CT ---
EXAMINATION TYPE: CT abdomen pelvis w con DATE OF EXAM: 05/17/2021 COMPARISON: 04/19/2021 HISTORY: Post Op colostomy incisional pain and drainage. CT DLP: 1841.2 mGycm Automated exposure control for dose reduction was used. CONTRAST: Performed with IV Contrast, patient injected with 100 mL of Isovue 300. Images obtained from the diaphragm to the floor the pelvis with IV contrast. Lung bases are clear. There is no pleural effusion heart size is normal. There is no pericardial effu young. Gallbladder is somewhat contracted. Liver and spleen are intact. There is no pancreatic mass. T he bile ducts are not dilated. Stomach is intact. There is no adrenal mass. Kidneys show satisfactory contrast opacification. There is no hydronephrosi s. There is no retroperitoneal adenopathy. Ureters are not dilated. There is a loop colostomy in the left mid abdomen. There is fat stranding in the subcutaneous tissues around the umbilicus. Appendix is posterior and appears normal. There is no mesenteric edema. There is no ascites or free air. There is no bowel obstruction. The lumbar vertebra have normal alignment. Posterior elements are intact. Bony pelvis is intact. Hip joints are intact. IMPRESSION: Postsurgical changes at the umbilicus with reduction of the fat-containing umbilical hernia compared to old exam. There is soft tissue air bubbles and fat stranding. There is Loop colostomy. There is clearing of the large bowel obstruction compared to old exam. There is somewhat lobulated appearance of the mid sigmoid colon could relate to a mass. This appears uncha nged.
[2021-05-17 20:24] VITALS: BP 114/67; PULSE 86; RESP 16; TEMP 97.8
== END 2021-05-17 21:15 | disposition home or self-care (01) ==
LOC: EC 17:37
DX: Z48.00 Encounter for change or removal of nonsurgical wound dressing (principal); Z88.2 Allergy status to sulfonamides; J45.909 Unspecified asthma, uncomplicated; Z87.891 Personal history of nicotine dependence
CPT/HCPCS: 99283; 36415; 80053; 82150; 83605; 83690; 85025; 87070; 87205; 74177; Q9967; 87077; 87186

== ENCOUNTER → 2021-08-07 | Outpatient (CLI) | payer MEDICAID ==
[2021-08-07 23:28] LABS: Basophils # (A) 0.05 X 10*3/uL (0.00-0.10); Basophils % (A) 0.4 %; Eosinophils % (A) 4.5 %; HCT 40.9 % (39.6-50.0); HGB 13.4 g/dL (13.0-17.0); Immature Grans, Automated 0.4 %; Lymphocytes % (A) 24.9 %; MCH 28.9 pg (27.0-32.0); MCHC 32.8 g/dL (32.0-37.0); MCV 88.3 fL (80.0-97.0); Mean Platelet Volume 9.2 fL (9.5-12.2); Monocytes # (A) 0.97 X 10*3/uL (0.20-1.00); Monocytes % (A) 8.6 %; NRBC Per 100 WBC 0 /100 WBCS (0.0-0.0); Neutrophils # (A) 6.86 X 10*3/uL (1.80-7.70); Neutrophils % (A) 61.2 %; Platelet Count 281 X 10*3/uL (140-440); RBC 4.63 X 10*6/uL (4.40-5.60); RDW 13.4 % (11.5-14.5); WBC 11.23 X 10*3/uL (4.50-10.00)
== END | disposition home or self-care (01) ==
LOC: LABPAT 15:06
PROVIDERS: ATTEND Surgery
DX: Z01.812 Encounter for preprocedural laboratory examination (principal); K57.32 Diverticulitis of large intestine without perforation or abscess without bleeding
CPT/HCPCS: 36415; 85025; 93005

== ENCOUNTER 2021-08-10 10:54 | Day surgery (SDC) | payer MEDICAID ==
[2021-08-09 10:34] VITALS: BMI 34.4
[~2021-08-10 10:54] MED LIST: LACTATED RINGERS 1,000 ML IV SCH; LIDOCAINE 1% (10MG/ML) FOR IV START INTRADERMA PRN
[2021-08-10 11:15] VITALS: RESP 16; TEMP 97.5
[2021-08-10] MEDS ORDERED: PROPOFOL 10 MG/ML 20 ML VIAL IV ONE (11:42)
--- NOTE | 2021-08-10 11:43 | P.GSHP ---
History of Present Illness H&P Date: 08/10/21 Chief Complaint: History of diverticular stricture This a 40-year-old male presents today for colonoscopy. Patient underwent reversal colostomy. He has known diverticular stricture. Past Medical History Past Medical History: Asthma, Hypertension Additional Past Medical History / Comment(s): Diverticulitis. Hx +ve Covid 06/29/21, with fever and congestion. History of Any Multi-Drug Resistant Organisms: None Reported Past Surgical History: Bowel Resection Additional Past Surgical History / Comment(s): Colostomy. Past Anesthesia/Blood Transfusion Reactions: No Reported Reaction Additional Past Anesthesia/Blood Transfusion Reaction / Comment(s): No blood transfusion hx. Past Psychological History: No Psychological Hx Reported Smoking Status: Former smoker Past Alcohol Use History: None Reported Additional Past Alcohol Use History / Comment(s): Quit smoking 03/30, smoked 7-8 yrs, 1 ppd. Past Drug Use History: None Reported - Past Family History Mother Additional Family Medical History / Comment(s): Diverticulitis, head injury. Father Family Medical History: No Reported History Medications and Allergies Home Medications Medication Instructions Recorded Confirmed Type Umeclidinium Brm/Vilanterol Tr 1 puff INHALATION DAILY PRN 04/19/21 08/10/21 History [Anoro Ellipta 62.5-25 Mcg INH] Metoprolol Tartrate [Lopressor] 50 mg PO BID #60 tab 04/28/21 08/10/21 Rx Albuterol Sulfate [Ventolin HFA] 2 puff INHALATION Q6H 08/09/21 08/10/21 History Ferrous Sulfate [Feosol] 325 mg PO DAILY 08/09/21 08/10/21 History Multivitamins, Thera [Multivitamin 1 tab PO DAILY 08/09/21 08/10/21 History (formulary)] Allergies Allergy/AdvReac Type Severity Reaction Status Date / Time Sulfa (Sulfonamide Allergy Unknown Verified 08/10/21 11:11 Antibiotics) Childhood Surgical - Exam Vital Signs Temp Pulse Resp BP Pulse Ox 97.5 F L 83 16 121/77 96 08/10/21 11:14 08/10/21 11:14 08/10/21 11:14 08/10/21 11:14 08/10/21 11:14 - General well developed, well nourished, no distress - Eyes PERRL - ENT normal pinna, normal nares - Neck no masses - Respiratory normal expansion - Cardiovascular Rhythm: regular - Abdomen Colostomy and left lower quadrant Abdomen: soft, non tender Assessment and Plan Assessment: History of diverticular stricture. Patient will undergo colonoscopy.
--- NOTE | 2021-08-10 11:56 | P.OP ---
Date of Procedure: 08/10/21 Preoperative Diagnosis: Diverticulitis Postoperative Diagnosis: Diverticulitis Procedure(s) Performed: Colonoscopy Anesthesia: MAC Surgeon: Rodrigo Pena Pathology: none sent Condition: stable Disposition: PACU Description of Procedure: Patient's placed on the endoscopy table in the lateral position. He received IV sedation. Digital rectal exam was performed which revealed no abnormalities. The flexible colonoscope was then placed patient anus. Patient previous diagnosis of diverticular stricture. The scope was advanced up to approximately the 30 cm jesus. In the colon was narrowed. Split scope withdrawn. There were no polyps or tumors seen. Scope was withdrawn. Patient was rotated on his back. Patient had a loop colostomy in the left upper quadrant. Patient had prolapse of his colostomy. The scope was then placed the patient's proximal limb. And then the scope was advanced. Scope could not be placed in the cecum significant tortuosity valve. Scope was withdrawn. Patient top procedure well. He was sent to recovery in stable condition.
[2021-08-10 12:30] VITALS: BP 132/74; PULSE 69
== END 2021-08-10 13:12 | disposition home or self-care (01) ==
LOC: ORWHC2ENDO 10:54
PROVIDERS: ATTEND Surgery
DX: K94.09 Other complications of colostomy (principal); Q43.8 Other specified congenital malformations of intestine; J45.909 Unspecified asthma, uncomplicated; I10 Essential (primary) hypertension; K57.92 Diverticulitis of intestine, part unspecified, without perforation or abscess without bleeding; Z90.49 Acquired absence of other specified parts of digestive tract; Z87.891 Personal history of nicotine dependence; Z79.899 Other long term (current) drug therapy; Z88.2 Allergy status to sulfonamides
CPT/HCPCS: 44388; J2704

== ENCOUNTER 2021-08-11 07:40 | Inpatient (IN) | payer MEDICAID ==
[2021-08-09 10:50] VITALS: BMI 34.4
[~2021-08-11 07:40] MED LIST changes: +ACETAMINOPHEN TAB 500 MG TAB PO PRN; +HEPARIN SODIUM,PORCINE/PF 5,000 UNIT/0.5 ML SYRINGE SQ PRN; -LACTATED RINGERS 1,000 ML IV SCH; -LIDOCAINE 1% (10MG/ML) FOR IV START INTRADERMA PRN; +metroNIDAZOLE-NS PMX 500 MG in SALINE 1 100ML.BAG IVPB PRN
[2021-08-11] MEDS ORDERED: LACTATED RINGERS 1,000 ML IV SCH (15:18)
[2021-08-11] MEDS ORDERED: SCOPOLAMINE 1.5MG/72HR PATCH TRANSDERM ONE (15:18)
[2021-08-11] MEDS ORDERED: ONDANSETRON 4 MG/2 ML VIAL IVP ONE (15:18)
[2021-08-11] MEDS ORDERED: MIDAZOLAM 2 MG/2 ML VIAL IV PRN (15:18)
[2021-08-11] MEDS ORDERED: DEXAMETHASONE SOD PHOSPHATE 4 MG/ML 1 ML VIAL IV ONE (15:18)
[2021-08-11 16:08] LABS: Potassium 3.7 mmol/L (3.5-5.1)
[2021-08-11] MEDS ORDERED: ALVIMOPAN 12 MG CAPSULE PO ONE (16:37)
[2021-08-11] MEDS: fentaNYL (PF) 50 MCG/ML 2 ML AMP IVP ONE ×2 (16:42→21:08)
[2021-08-11] MEDS ORDERED: MIDAZOLAM 2 MG/2 ML VIAL IVP ONE (16:44)
[2021-08-11] MEDS ORDERED: NALOXONE 0.4 MG/ML 1 ML VIAL IV PRN (16:55)
--- NOTE | 2021-08-11 16:58 | P.ANPRN ---
Procedure Note - Anesthesia - Epidural/Spinal Epidural Time Out Performed: Yes Date of Procedure: 08/11/21 Procedure Start Time: 16:42 Procedure Stop Time: 16:54 Location of Patient: PreOp Indication: Acute Post-Operative Pain, Requested by Surgeon (Dr Pena) Sedation Type: Sedate with meaningful contact maintained Preparation: Sterile Dressing Position: Sitting Catheter: Indwelling Needle Guage: 18 Injectate: Test Dose Lidocaine1.5% w/1:200,000 epi (3cc) Blood Aspirated: No Pain Paresthesia on Injection Noted: No Events: Uneventful and Well Tolerated
--- NOTE | 2021-08-11 17:33 | P.GSHP ---
History of Present Illness H&P Date: 08/11/21 Chief Complaint: Diverticular stricture This a 40-year-old male with history of colon obstruction with diverticular stricture. Patient has a previous loop colostomy in the left upper quadrant. He presents today for reversal of colostomy and low anterior section of divertic ular stricture. Patient is aware the risks of surgery including wound infection and possible colostomy, anastomotic leak. Past Medical History Past Medical History: Asthma, Hypertension Additional Past Medical History / Comment(s): Diverticulitis. Hx +ve Covid 06/29/21, with fever and congestion. History of Any Multi-Drug Resistant Organisms: None Reported Past Surgical History: Bowel Resection Additional Past Surgical History / Comment(s): Colostomy. Past Anesthesia/Blood Transfusion Reactions: No Reported Reaction Additional Past Anesthesia/Blood Transfusion Reaction / Comment(s): No blood transfusion hx. Past Psychological History: No Psychological Hx Reported Smoking Status: Former smoker Past Alcohol Use History: None Reported Additional Past Alcohol Use History / Comment(s): Quit smoking 03/30, smoked 7-8 yrs, 1 ppd. Past Drug Use History: None Reported - Past Family History Mother Additional Family Medical History / Comment(s): Diverticulitis, head injury. Father Family Medical History: No Reported History Medications and Allergies Home Medications Medication Instructions Recorded Confirmed Type Umeclidinium Brm/Vilanterol Tr 1 puff INHALATION DAILY PRN 04/19/21 08/11/21 History [Anoro Ellipta 62.5-25 Mcg INH] Metoprolol Tartrate [Lopressor] 50 mg PO BID #60 tab 04/28/21 08/11/21 Rx Albuterol Sulfate [Ventolin HFA] 2 puff INHALATION Q6H 08/09/21 08/11/21 History Ferrous Sulfate [Feosol] 325 mg PO DAILY 08/09/21 08/10/21 History Multivitamins, Thera [Multivitamin 1 tab PO DAILY 08/09/21 08/10/21 History (formulary)] Allergies Allergy/AdvReac Type Severity Reaction Status Date / Time Sulfa (Sulfonamide Allergy Unknown Verified 08/11/21 15:37 Antibiotics) Childhood Surgical - Exam Vital Signs Temp Pulse Resp BP Pulse Ox 97.4 F L 72 17 137/81 98 08/11/21 15:48 08/11/21 15:48 08/11/21 15:48 08/11/21 15:48 08/11/21 15:48 - General well developed, well nourished, no distress - Eyes PERRL - ENT normal pinna - Neck no masses - Respiratory normal expansion - Cardiovascular Rhythm: regular - Abdomen Diapering loop colostomy in left or quadrant with prolapse of colostomy Abdomen: soft, non tender Hernia: umbilical Results - Labs 08/11/21 15:45 Diabetes panel 08/11/21 Range/Units 15:45 Sodium 140 (137-145) mmol/L Potassium 3.7 (3.5-5.1) mmol/L Chloride 105 (98-107) mmol/L Carbon Dioxide 22 (22-30) mmol/L Pituitary panel 08/11/21 Range/Units 15:45 Sodium 140 (137-145) mmol/L Potassium 3.7 (3.5-5.1) mmol/L Chloride 105 (98-107) mmol/L Carbon Dioxide 22 (22-30) mmol/L Adrenal panel 08/11/21 Range/Units 15:45 Sodium 140 (137-145) mmol/L Potassium 3.7 (3.5-5.1) mmol/L Chloride 105 (98-107) mmol/L Carbon Dioxide 22 (22-30) mmol/L Assessment and Plan Assessment: We'll perform a low anterior resection with removal of diverticular stricture and reversal colostomy.
[2021-08-11] MEDS ORDERED: PROPOFOL 10 MG/ML 20 ML VIAL IV ONE (17:59)
[2021-08-11] MEDS ORDERED: MIDAZOLAM 2 MG/2 ML VIAL ONE (17:59)
[2021-08-11] MEDS ORDERED: LIDOCAINE 1% INJ 10MG/ML (20 ML MDV) ONE (17:59)
[2021-08-11] MEDS ORDERED: NEOSTIGMINE 1 MG/ML 10 ML VIAL ONE (17:59)
[2021-08-11] MEDS ORDERED: fentaNYL (PF) 50 MCG/ML 2 ML AMP ONE (17:59)
[2021-08-11] MEDS ORDERED: ROCURONIUM 10 MG/ML (5 ML VIAL) IV ONE (17:59)
[2021-08-11] MEDS ORDERED: SUCCINYLCHOLINE CHLORIDE 100 MG/5 ML SYR IV ONE (17:59)
[2021-08-11] MEDS ORDERED: GLYCOPYRROLATE 0.2 MG/ML 2 ML VIAL ONE (17:59)
[2021-08-11] MEDS ORDERED: PHENYLEPHRINE-0.9% NACL SYG 1,000 MCG/10 ML SYRINGE ONE (17:59)
[2021-08-11] MEDS ORDERED: LACTATED RINGERS 1,000 ML IV ONE ×4 (18:43→21:47)
[2021-08-11] MEDS ORDERED: METOCLOPRAMIDE 5 MG/ML 2 ML VIAL IVP PRN (20:07)
[2021-08-11] MEDS ORDERED: BENZOCAINE/MENTHOL LOZENG 1 EACH LOZENGE MUCOUS MEM PRN (20:07)
[2021-08-11] MEDS ORDERED: KETOROLAC 30 MG/ML 1 ML VIAL IVP PRN (20:07)
--- NOTE | 2021-08-11 20:07 | P.OP ---
Date of Procedure: 08/11/21 Preoperative Diagnosis: Diverticular stricture of sigmoid colon Postoperative Diagnosis: Diverticular stricture sigmoid colon Adhesions Incisional hernia Procedure(s) Performed: Exploratory laparotomy Lysis of extensive adhesions with over 20 minutes of operative time Left colectomy with low anterior section [place] splenic flexure Appendectomy Omentectomy Repair of incisional hernia Anesthesia: MALCOLM Surgeon: Rodrigo Pena Estimated Blood Loss (ml): 100 Pathology: other (Left colon, omentum, appendix) Condition: stable Disposition: PACU Description of Procedure: The patient's placed the operative table in supine position. He received general endotracheal tube anesthesia. His abdomen was prepped and draped usual sterile fashion. The patient's placed in dorsolithotomy position position. His colostomy was prepped and draped usual sterile fashion. The skin was incised in the midline. There was an incisional hernia noted. There are extensive adhesions to the anterior abdominal wall. Over 20 was operative time used to lyse adhesions. The colostomy site was then dissected. The colostomy was then transected with a GI stapler on either for an afferent limb. The left colon was then mobilized. The splenic flexure taken down. The area of the sigmoid colon was mobilized. And the diverticular stricture could be seen. The diverticular disease extended all the way up to the stomach by flexure. At this point the rectum was then dissected. It was then divided with the contour stapler. Using the Enseal device the mesentery of the sigmoid colon and left colon and splenic flexure were taken. The specimens of pathology. The omentum was partially nonviable. The omentum was then transected with the Enseal device. The pathology. The appendix was visualized. Due to the extensive adhesions was decided perform appendectomy. The mesial appendix was divided with the Enseal device. And then the appendix was divided with the ABBI stapler. At this point the transverse colon was mobilized. A suitable length of colon is brought to the pelvis. The proximal colon was then opened and the 29 mm EEA anvil was placed in the colon. The colon secure the pursestring device. The carpenter assistant installer then placed the dilator and then the EEA stapler into the patient's rectum. The spike was then driven to the rectal staple line. This connected the anvil. The stapler is then closed and fired. 2 intact tissue rings were withdrawn.. The anastomosis was checked under air insufflation. A hydroureter was placed across the proximal colon. Then using a rigid sigmoidoscope the rectum was insufflated with air. The abdomen was areas no bleeding seen. The fascia was then closed with looped #1 PDS suture. The incisional hernia was repaired during fascial closure. Skin was closed irineo. The colostomy then excised using electrocautery. The fascia colostomy then closed using 0 Ethibond suture. The skin was then closed irineo. A Abi drain was placed into the colostomy site. Patient top she will was sent to recovery room in stable condition.
[2021-08-11] MEDS: HYDROmorphone 0.5 MG/0.5 ML SYRINGE IVP PRN ×2 (21:08→21:14)
[2021-08-11] MEDS: FAMOTIDINE 20 MG/2 ML VIAL IV SCH (22:34)
[2021-08-11] MEDS: HEPARIN SODIUM,PORCINE/PF 5,000 UNIT/0.5 ML SYRINGE SQ SCH (22:35)
[2021-08-11] MEDS: ALVIMOPAN 12 MG CAPSULE PO SCH (22:37)
[2021-08-11 23:04] LABS: Basophils % (A) 0 %; Eosinophils % (A) 0 %; HCT 39.5 % (39.0-53.0); HGB 13.4 gm/dL (13.0-17.5); Lymphocytes # (A) 0.7 k/uL (1.0-4.8); Lymphocytes % (A) 4 %; MCH 30.3 pg (25.0-35.0); MCHC 33.8 g/dL (31.0-37.0); MCV 89.7 fL (80.0-100.0); Mean Platelet Volume 6.4; Monocytes # (A) 0.5 k/uL (0-1.0); Monocytes % (A) 3 %; Neutrophils # (A) 14.3 k/uL (1.3-7.7); Neutrophils % (A) 92 %; Platelet Count 291 k/uL (150-450); RBC 4.41 m/uL (4.30-5.90); RDW 13.9 % (11.5-15.5); WBC 15.5 k/uL (3.8-10.6)
[2021-08-11 23:26] LABS: African American GFR (CKD) >90 (>60 ml/min/1.73 sqM); Anion Gap 9 mmol/L; Blood Urea Nitrogen 15 mg/dL (9-20); Calcium 8.3 mg/dL (8.4-10.2); Carbon Dioxide 23 mmol/L (22-30); Chloride 104 mmol/L (98-107); Glucose 157 mg/dL (74-99); Non-African American GFR(CKD) >90 (>60 ml/min/1.73 sqM); Potassium 4.1 mmol/L (3.5-5.1); Sodium 136 mmol/L (137-145)
[2021-08-12] MEDS: D5-0.45% NACL WITH KCL 20MEQ/L 1,000 ML IV SCH ×5 (00:34→20:22)
[2021-08-12] MEDS: ALVIMOPAN 12 MG CAPSULE PO SCH ×2 (07:32→20:23)
[2021-08-12] MEDS: ONDANSETRON 4 MG/2 ML VIAL IVP PRN ×2 (07:32→16:15)
[2021-08-12] MEDS: FAMOTIDINE 20 MG/2 ML VIAL IV SCH ×2 (07:32→20:22)
[2021-08-12] MEDS: HEPARIN SODIUM,PORCINE/PF 5,000 UNIT/0.5 ML SYRINGE SQ SCH ×3 (07:33→20:23)
--- NOTE | 2021-08-12 11:10 | P.PN ---
Progress Note - Text Progress Note Date: 08/12/21 The patient's postoperative day 1 from low anterior resection for diverticular stricture and reversal of colostomy with repair of incisional hernia. Patient is doing quite well. He's had no significant complaints of pain. On exam vital signs are stable. His abdomen is soft. Incision is clean dry intact. Status post colon resection with reversal colostomy. Patient is encouraged to ambulate today. He will will remain on clear liquid diet.
[2021-08-12] MEDS ORDERED: FORMOTEROL FUMARATE 20 MCG/2 ML NEBU INHALATION PRN (11:59)
--- NOTE | 2021-08-12 12:06 | P.CONS ---
History of Present Illness - Reason for Consult Leukocytosis - History of Present Illness Patient is admitted for elective ulcer of colostomy. Patient had history of incisional hernia patient is in ICU for bowel perforation underwent colectomy in the past and colostomy after that. Patient is clinically doing well has an abdominal binder patient is burping didn't move his bowel at as gas. I'm unable to appreciate any bowel sounds because of the binder that's in place. Patient doesn't have any fever chills does have some leukocytosis denied any cough denied any shortness of breath. Patient does have history of hypertension and asthma which are fairly stable and controlled at this time. REVIEW OF SYSTEMS: CONSTITUTIONAL: No fever, no malaise, no fatigue. HEENT: No recent visual problems or hearing problems. Denied any sore throat. CARDIOVASCULAR: No chest pain, orthopnea, PND, no palpitations, no syncope. PULMONARY: No shortness of breath, no cough, no hemoptysis. GASTROINTESTINAL: No diarrhea, no nausea, no vomiting, no abdominal pain. NEUROLOGICAL: No headaches, no weakness, no numbness. HEMATOLOGICAL: Denies any bleeding or petechiae. GENITOURINARY: Denies any burning micturition, frequency, or urgency. MUSCULOSKELETAL/RHEUMATOLOGICAL: Denies any joint pain, swelling, or any muscle pain. ENDOCRINE: Denies any polyuria or polydipsia. The rest of the 14-point review of systems is negative. PHYSICAL EXAMINATION: GENERAL: The patient is alert and oriented x3, not in any acute distress. Well developed, well nourished. HEENT: Pupils are round and equally reacting to light. EOMI. No scleral icterus. No conjunctival pallor. Normocephalic, atraumatic. No pharyngeal erythema. No thyromegaly. CARDIOVASCULAR: S1 and S2 present. No murmurs, rubs, or gallops. PULMONARY: Chest is clear to auscultation, no wheezing or crackles. ABDOMEN: Abdominal binder in place and the patient has an epidural in place MUSCULOSKELETAL: No joint swelling or deformity. EXTREMITIES: No cyanosis, clubbing, or pedal edema. NEUROLOGICAL: Gross neurological examination did not reveal any focal deficits. SKIN: No rashes. Assessment and plan -Leukocytosis: Reactive without any evidence of infection no further workup is needed no need for antibiotics -Reversal of colostomy pain management as per primary service patient still has an epidural in place -Hypertension well-controlled blood pressures can resume on metoprolol -Asthma without any acute exacerbation continue with as needed albuterol DVT prophylaxis: As per primary service Past Medical History Past Medical History: Asthma, Hypertension Additional Past Medical History / Comment(s): Diverticulitis. Hx +ve Covid 06/29/21, with fever and congestion. History of Any Multi-Drug Resistant Organisms: None Reported Past Surgical History: Bowel Resection Additional Past Surgical History / Comment(s): Colostomy. Past Anesthesia/Blood Transfusion Reactions: No Reported Reaction Additional Past Anesthesia/Blood Transfusion Reaction / Comm: No blood transfusion hx. Past Psychological History: No Psychological Hx Reported Smoking Status: Former smoker Past Alcohol Use History: None Reported Additional Past Alcohol Use History / Comment(s): Quit smoking 03/30, smoked 7-8 yrs, 1 ppd. Past Drug Use History: None Reported - Past Family History Mother Additional Family Medical History / Comment(s): Diverticulitis, head injury. Father Family Medical History: No Reported History Medications and Allergies Home Medications Medication Instructions Recorded Confirmed Type Umeclidinium Brm/Vilanterol Tr 1 puff INHALATION DAILY PRN 04/19/21 08/11/21 History [Anoro Ellipta 62.5-25 Mcg INH] Metoprolol Tartrate [Lopressor] 50 mg PO BID #60 tab 04/28/21 08/11/21 Rx Albuterol Sulfate [Ventolin HFA] 2 puff INHALATION Q6H 08/09/21 08/11/21 History Ferrous Sulfate [Feosol] 325 mg PO DAILY 08/09/21 08/10/21 History Multivitamins, Thera [Multivitamin 1 tab PO DAILY 08/09/21 08/10/21 History (formulary)] Allergies Allergy/AdvReac Type Severity Reaction Status Date / Time Sulfa (Sulfonamide Allergy Unknown Verified 08/11/21 15:37 Antibiotics) Childhood Physical Exam Vitals: Vital Signs Temp Pulse Pulse Resp BP Pulse Ox 08/12/21 09:05 97 08/12/21 08:00 97.7 F 94 18 132/82 98 08/12/21 01:55 98.5 F 87 20 129/72 97 08/12/21 00:44 87 130/84 97 08/12/21 00:15 87 124/75 97 08/12/21 00:00 78 116/78 97 08/11/21 23:45 78 110/71 08/11/21 23:15 86 113/74 98 08/11/21 23:00 97 118/75 97 08/11/21 22:45 83 116/76 91 L 08/11/21 22:30 83 112/72 96 08/11/21 22:15 98.0 F 90 127/80 90 L 08/11/21 21:46 77 18 127/73 93 L 08/11/21 21:31 77 19 128/78 92 L 08/11/21 21:16 78 18 145/80 96 08/11/21 21:02 83 20 145/87 97 08/11/21 20:47 83 18 141/83 99 08/11/21 20:30 80 18 142/90 98 08/11/21 20:10 97.3 F L 80 16 126/78 95 08/11/21 16:55 75 16 122/62 97 08/11/21 15:48 97.4 F L 72 17 137/81 98 Intake and Output 08/11/21 08/12/21 08/12/21 22:59 06:59 14:59 Intake Total 4150 Output Total 300 150 400 Balance 3850 -150 -400 Intake: IV 4150 Output: Urine 100 150 400 Estimated Blood Loss 200 Other: Voiding Method Indwelling Catheter Weight 111 kg Results CBC & Chem 7: 08/11/21 22:27 08/11/21 22:27 Labs: Abnormal Lab Results - Last 24 Hours (Table) 08/11/21 08/11/21 Range/Units 22:27 22:27 WBC 15.5 H (3.8-10.6) k/uL Neutrophils # 14.3 H (1.3-7.7) k/uL Lymphocytes # 0.7 L (1.0-4.8) k/uL Sodium 136 L (137-145) mmol/L Glucose 157 H (74-99) mg/dL Calcium 8.3 L (8.4-10.2) mg/dL
[2021-08-12] MEDS ORDERED: IPRATROPIUM 0.5 MG/2.5 ML NEBU INHALATION PRN (12:07)
[2021-08-12] MEDS: ALBUTEROL NEBULIZED 2.5 MG/3 ML INHALATION SCH ×2 (12:12→20:14)
--- NOTE | 2021-08-12 13:45 | P.PN ---
Progress Note - Text Date:[ 08/12/2021] Time: 13:31 The patient is status post, low anterior resection, postoperative day number 1 The patient has no complaints of nausea vomiting or headache. The patient does not complain of any lower extremity numbness or weakness. The epidural is running at 10 mL per hour. VAS 0-10. The epidural will be maintained and adjusted as needed.
[2021-08-12] MEDS: ROPIVACAINE 250 MG, HYDROMORPHONE (PF) 5 MG in SODIUM CHLORIDE 0.9% 200 ML EPIDURAL PRN (20:20)
[2021-08-12] MEDS: METOPROLOL TARTRATE 50 MG TAB PO SCH (20:23)
[2021-08-13] MEDS: ALBUTEROL NEBULIZED 2.5 MG/3 ML INHALATION SCH ×4 (02:57→19:55)
[2021-08-13] MEDS: D5-0.45% NACL WITH KCL 20MEQ/L 1,000 ML IV SCH ×3 (06:58→23:11)
[2021-08-13] MEDS: ONDANSETRON 4 MG/2 ML VIAL IVP PRN (08:09)
[2021-08-13] MEDS: HEPARIN SODIUM,PORCINE/PF 5,000 UNIT/0.5 ML SYRINGE SQ SCH ×3 (08:10→23:11)
[2021-08-13] MEDS: FAMOTIDINE 20 MG/2 ML VIAL IV SCH ×2 (08:10→21:36)
[2021-08-13] MEDS: ALVIMOPAN 12 MG CAPSULE PO SCH ×2 (08:10→21:36)
[2021-08-13] MEDS: METOPROLOL TARTRATE 50 MG TAB PO SCH ×2 (08:10→21:36)
[2021-08-13] MEDS: MULTIVITAMINS, THERA 1 EACH TAB PO SCH (08:10)
--- NOTE | 2021-08-13 08:35 | P.PN ---
Progress Note - Text Date: 08/13/2021 Time: 08:28 The patient is status post, low anterior resection, postoperative day number 2 The patient has no complaints of nausea vomiting or headache. The patient does not complain of any lower extremity numbness or weakness. The epidural is running at 10 mL per hour. VAS 0-10. The epidural will be maintained and ad justed as needed.
--- NOTE | 2021-08-13 10:48 | P.PN ---
Subjective Patient is admitted for elective ulcer of colostomy. Patient had history of incisional hernia patient is in ICU for bowel perforation underwent colectomy in the past and colostomy after that. Patient is clinically doing well has an abdominal binder patient is burping didn't move his bowel at as gas. I'm unable to appreciate any bowel sounds because of the binder that's in place. Patient doesn't have any fever chills does have some leukocytosis denied any cough denied any shortness of breath. Patient does have history of hypertension and asthma which are fairly stable and controlled at this time. 08/13/2021 Patient does have bowel sounds in the 2 out of 4 quadrants still has an epidural in place. Patient is burping pain is well controlled. Constitutional: Denied any fatigue denied any fever. Cardio vascular: denied any chest pain, palpitations Gastrointestinal denied any nausea vomiting Pulmonary: Denied any shortness of breath cough Neurologic denied any new focal deficits All inpatient medications were reviewed and appropriate changes in these medications as dictated in the interval history and assessment and plan. PHYSICAL EXAMINATION: GENERAL: The patient is alert and oriented x3, not in any acute distress. Well developed, well nourished. HEENT: Pupils are round and equally reacting to light. EOMI. No scleral icterus. No conjunctival pallor. Normocephalic, atraumatic. No pharyngeal erythema. No thyromegaly. CARDIOVASCULAR: S1 and S2 present. No murmurs, rubs, or gallops. PULMONARY: Chest is clear to auscultation, no wheezing or crackles. ABDOMEN: Abdominal binder in place, does have bowel sounds today and the patient has an epidural in place MUSCULOSKELETAL: No joint swelling or deformity. EXTREMITIES: No cyanosis, clubbing, or pedal edema. NEUROLOGICAL: Gross neurological examination did not reveal any focal deficits. SKIN: No rashes. Assessment and plan -Leukocytosis: Reactive without any evidence of infection no further workup is needed no need for antibiotics -Reversal of colostomy pain management as per primary service patient still has an epidural in place -Hypertension well-controlled blood pressures on metoprolol -Asthma without any acute exacerbation continue with as needed albuterol DVT prophylaxis: As per primary service Objective - Vital Signs Vital signs: Vital Signs Temp 98.4 F 08/13/21 08:00 Pulse 80 08/13/21 08:35 Resp 16 03/06/22 08:00 BP 113/73 08/13/21 08:00 Pulse Ox 98 08/13/21 08:00 Intake & Output 08/12/21 08/13/21 08/13/21 18:59 06:59 18:59 Intake Total 1050 1000 Output Total 800 Balance 250 1000 Intake: Intake, IV Titration 1050 1000 Amount D5-0.45% NaCl with KCl 1000 1000 20Meq/l 1,000 ml @ 125 mls/hr IV .Q8H [facility] Rx#: [id number] ceFAZolin 1,000 mg In 50 Sodium Chloride 0.9% 50 ml @ 100 mls/hr IVPB Q6H [facility] Rx#:[id number] Output: Urine 700 Emesis 100 Other: Voiding Method Indwelling Catheter Indwelling Catheter - Labs CBC & Chem 7: 08/11/21 22:27 08/11/21 22:27
--- NOTE | 2021-08-13 11:18 | P.PN ---
Progress Note - Text Progress Note Date: 08/13/21 The patient is resting comfortably in his bed. He denies any significant bowel function. On exam vital signs are stable. Abdomen soft. Incision is clean dry intact. Colostomy closure site is clean. Status post left colectomy with reversal colostomy. Patient will remain on clear liquid diet until he has significant bowel function.
[2021-08-13] MEDS: ROPIVACAINE 250 MG, HYDROMORPHONE (PF) 5 MG in SODIUM CHLORIDE 0.9% 200 ML EPIDURAL PRN (15:41)
[2021-08-13 19:55] LABS: Appearance,Urine Cloudy (Clear); Bilirubin,Urine Negative (Negative); Blood,Urine Moderate (Negative); Color,Urine Yellow; Glucose,Urine (UA) Negative (Negative); Ketones,Urine Negative (Negative); Leukocyte Esterase,Urine Trace (Negative); Mucus,Urine Many /hpf; Nitrite,Urine Negative (Negative); Protein,Urine 1+ (Negative); RBC,Urine 40 /hpf (0-5); Specific Gravity,Urine 1.029 (1.001-1.035); Urobilinogen,Urine <2.0 mg/dL (<2.0); WBC,Urine 6 /hpf (0-5)
[2021-08-13] MEDS ORDERED: ACETAMINOPHEN TAB 325 MG TAB PO PRN (21:37)
[2021-08-14] MEDS: ALBUTEROL NEBULIZED 2.5 MG/3 ML INHALATION SCH ×4 (01:57→19:59)
[2021-08-14] MEDS: D5-0.45% NACL WITH KCL 20MEQ/L 1,000 ML IV SCH (04:32)
--- NOTE | 2021-08-14 05:37 | P.PN ---
Progress Note - Text Date: 08/14/2021 Time: 05:36 The patient is status post, low anterior resection, postoperative day number[ 3] The patient has no complaints of nausea vomiting or headache. The patient does not complain of any lower extremity numbness or weakness. The epidural is running at 10 mL per hour. VAS 0-10. The epidural will be discontinued this a.m. Pain meds will be provided the patient by the service.
[2021-08-14] MEDS ORDERED: HYDROcodone/APAP 5-325MG 1 EACH TAB PO PRN (07:52)
[2021-08-14] MEDS ORDERED: HYDROmorphone 1 MG/ML 1 ML SYRINGE IVP PRN (07:52)
[2021-08-14] MEDS: MULTIVITAMINS, THERA 1 EACH TAB PO SCH (07:53)
[2021-08-14] MEDS: FAMOTIDINE 20 MG/2 ML VIAL IV SCH ×2 (07:53→20:48)
[2021-08-14] MEDS: ALVIMOPAN 12 MG CAPSULE PO SCH ×2 (07:53→20:48)
[2021-08-14] MEDS: METOPROLOL TARTRATE 50 MG TAB PO SCH ×2 (07:53→20:48)
[2021-08-14 08:31] LABS: Basophils % (A) 0 %; Eosinophils # (A) 0.2 k/uL (0-0.7); Eosinophils % (A) 2 %; HCT 36.4 % (39.0-53.0); Lymphocytes # (A) 1.7 k/uL (1.0-4.8); Lymphocytes % (A) 16 %; MCH 30.1 pg (25.0-35.0); MCHC 32.9 g/dL (31.0-37.0); MCV 91.5 fL (80.0-100.0); Mean Platelet Volume 6.6; Monocytes # (A) 0.8 k/uL (0-1.0); Monocytes % (A) 7 %; Neutrophils # (A) 7.8 k/uL (1.3-7.7); Neutrophils % (A) 74 %; Platelet Count 273 k/uL (150-450); RBC 3.98 m/uL (4.30-5.90); RDW 13.9 % (11.5-15.5); WBC 10.7 k/uL (3.8-10.6)
[2021-08-14 08:34] LABS: African American GFR (CKD) >90 (>60 ml/min/1.73 sqM); Anion Gap 5 mmol/L; Blood Urea Nitrogen 5 mg/dL (9-20); Calcium 8.2 mg/dL (8.4-10.2); Carbon Dioxide 25 mmol/L (22-30); Chloride 104 mmol/L (98-107); Glucose 122 mg/dL (74-99); Non-African American GFR(CKD) >90 (>60 ml/min/1.73 sqM); Potassium 3.9 mmol/L (3.5-5.1); Sodium 134 mmol/L (137-145)
[2021-08-14] MEDS: HEPARIN SODIUM,PORCINE/PF 5,000 UNIT/0.5 ML SYRINGE SQ SCH ×3 (10:32→20:48)
--- NOTE | 2021-08-14 10:36 | XR ---
EXAMINATION TYPE: XR chest 2V DATE OF EXAM: 08/14/2021 COMPARISON: Chest x-ray dated 04/25/2021 HISTORY: Pneumonia, postop colostomy reversal TECHNIQUE: Frontal and lateral views of the chest are obtained. FINDINGS: There is a crescent of air beneath right hemidiaphragm. No evident pneumothorax. Patchy ba silar density is present. Lung volumes are low. Cardiac mediastinal silhouette is within normal limit s. Central venous catheter has been removed. Air-fluid levels present within the abdomen. IMPRESSION: Correlate for ileus, basilar atelectasis. Pneumoperitoneum may be postoperative, correla te for appropriate surgical history. A [place] critical message alert has been initiated for [facility] via the [employer] Critical Results System on 08/14/2021 10:33 AM. This message alert has been sent to [facility] via the preferences provided by the clinician for the receipt of Radiology Critical Findings. Message ID [id number].
--- NOTE | 2021-08-14 11:10 | P.PN ---
Subjective Patient is admitted for elective ulcer of colostomy. Patient had history of incisional hernia patient is in ICU for bowel perforation underwent colectomy in the past and colostomy after that. Patient is clinically doing well has an abdominal binder patient is burping didn't move his bowel at as gas. I'm unable to appreciate any bowel sounds because of the binder that's in place. Patient doesn't have any fever chills does have some leukocytosis denied any cough denied any shortness of breath. Patient does have history of hypertension and asthma which are fairly stable and controlled at this time. 08/13/2021 Patient does have bowel sounds in the 2 out of 4 quadrants still has an epidural in place. Patient is burping pain is well controlled. 08/14/2021 Patient had low-grade fever yesterday because of which year was obtained because of concerns of UTI considering significant sediment in the Garner catheter. Urine analysis is bit abnormal but not impressive for UTI, obtained a chest x- ray which showed a possible ileus and some pneumoperitoneum from his surgery. Patient also bit hyponatremic secondary to D5 half-normal he was receiving. Patient has leukocytosis which improved patient was started on Rocephin which will be continued also obtain blood cultures, so further is no clear evidence of infection. Constitutional: Denied any fatigue denied any fever. Cardio vascular: denied any chest pain, palpitations Gastrointestinal denied any nausea vomiting Pulmonary: Denied any shortness of breath cough Neurologic denied any new focal deficits All inpatient medications were reviewed and appropriate changes in these medications as dictated in the interval history and assessment and plan. PHYSICAL EXAMINATION: GENERAL: The patient is alert and oriented x3, not in any acute distress. Well developed, well nourished. HEENT: Pupils are round and equally reacting to light. EOMI. No scleral icterus. No conjunctival pallor. Normocephalic, atraumatic. No pharyngeal erythema. No thyromegaly. CARDIOVASCULAR: S1 and S2 present. No murmurs, rubs, or gallops. PULMONARY: Chest is clear to auscultation, no wheezing or crackles. ABDOMEN: Abdominal binder in place, does have bowel sounds, epidural was removed MUSCULOSKELETAL: No joint swelling or deformity. EXTREMITIES: No cyanosis, clubbing, or pedal edema. NEUROLOGICAL: Gross neurological examination did not reveal any focal deficits. SKIN: No rashes. Assessment and plan -Fever. And Leukocytosis: Patient appears to have mild hematuria from Garner catheter otherwise, I do not believe patient has UTI no other clear source was identified but for now we can you with antibiotics patient probably can be discharged on 5 days of Ceftin whenever he is ready from surgical perspective -Pneumoperitoneum expected postoperative change no further intervention -Mild ileus which is also expected, further management as per general surgery -Reversal of colostomy pain management as per primary service patient still has an epidural in place -Hypertension well-controlled blood pressures on metoprolol -Asthma without any acute exacerbation continue with as needed albuterol DVT prophylaxis: As per primary service Objective - Vital Signs Vital signs: Vital Signs Temp 98.8 F 08/14/21 08:00 Pulse 97 08/14/21 08:00 Resp 17 08/14/21 08:00 BP 117/78 08/14/21 08:00 Pulse Ox 98 08/14/21 08:00 Intake & Output 08/13/21 08/14/21 08/14/21 18:59 06:59 18:59 Intake Total 1243.5 Output Total 650 Balance 1243.5 -650 Intake: Intake, IV Titration 1243.5 Amount D5-0.45% NaCl with KCl 1000 20Meq/l 1,000 ml @ 125 mls/hr IV .Q8H [facility] Rx#: [id number] Ropivacaine 250 mg 193.5 Hydromorphone (Pf) 5 mg In Sodium Chloride 0.9% 200 ml @ Per Protocol EPIDURAL .Q0M PRN Rx#: [id number] ceFAZolin 1,000 mg In 50 Sodium Chloride 0.9% 50 ml @ 100 mls/hr IVPB Q6H [facility] Rx#:[id number] Output: Urine 650 Other: Voiding Method Indwelling Catheter Indwelling Catheter - Labs CBC & Chem 7: 08/14/21 08:02 08/14/21 08:02 Labs: Abnormal Lab Results - Last 24 Hours (Table) 08/13/21 08/14/21 08/14/21 Range/Units 19:10 08:02 08:02 WBC 10.7 H (3.8-10.6) k/uL RBC 3.98 L (4.30-5.90) m/uL Hgb 12.0 L (13.0-17.5) gm/dL Hct 36.4 L (39.0-53.0) % Neutrophils # 7.8 H (1.3-7.7) k/uL Sodium 134 L (137-145) mmol/L BUN 5 L (9-20) mg/dL Glucose 122 H (74-99) mg/dL Calcium 8.2 L (8.4-10.2) mg/dL Urine Protein 1+ H (Negative) Urine Blood Moderate H (Negative) Ur Leukocyte Esterase Trace H (Negative) Urine RBC 40 H (0-5) /hpf Urine WBC 6 H (0-5) /hpf Urine Mucus Many H (None) /hpf
--- NOTE | 2021-08-14 13:19 | P.PN ---
Subjective Progress Note Date: 08/14/21 CHIEF COMPLAINT: Diverticular stricture of sigmoid colon HISTORY OF PRESENT ILLNESS: Patient is postop day #3 status post Exploratory laparotomy, Lysis of extensive adhesions, Left colectomy with low anterior section, Takedown splenic flexure, Appendectomy, Omentectomy and Repair of incisional hernia. Patient's epidural was discontinued this morning. Garner will be discontinued later today. Denies any flatus or bowel movement. Reports that his pain is controlled. He did have nausea earlier this morning. Afebrile. WBC has decreased from 15.5-10.7 chest x-ray report states to correlate for ileus, basilar atelectasis. Pneumoperitoneum. Pneumoperitoneum noted on x-ray is postoperative. Discussed x-ray results with Dr. back. PHYSICAL EXAM: VITAL SIGNS: Reviewed. GENERAL: Well-developed in no acute distress. HEENT: No sclera icterus. Extraocular movements grossly intact. Moist buccal mucosa. Head is atraumatic, normocephalic. ABDOMEN: Soft. Mildly distended. Incision site some small saturation noted at the distal aspect of the incisional dressing. NEUROLOGIC: Alert and oriented. Cranial nerves II through XII grossly intact. ASSESSMENT: 1. Diverticular stricture of sigmoid colon, adhesions and incisional hernia status post Exploratory laparotomy, Lysis of extensive adhesions, Left colectomy with low anterior section, Takedown splenic flexure, Appendectomy, Omentectomy and Repair of incisional hernia PLAN: -Advance diet to clear liquids -Continue supportive care -Garner catheter and epidural discontinued today -IV Dilaudid and [place] added for pain -Continue antiemetics -Encouraged patient to ambulate -Encouraged incentive spirometer use -GI prophylaxis Pepcid and DVT prophylaxis subcu heparin Physician Medical Records Technician note has been reviewed by physician. Signing provider agrees with the documented findings, assessment, and plan of care. Objective - Vital Signs Vital signs: Vital Signs Temp 98.8 F 08/14/21 08:00 Pulse 97 08/14/21 08:00 Resp 17 08/14/21 08:00 BP 117/78 08/14/21 08:00 Pulse Ox 98 08/14/21 08:00 Intake & Output 08/13/21 08/14/21 08/14/21 18:59 06:59 18:59 Intake Total 1243.5 Output Total 650 Balance 1243.5 -650 Intake: Intake, IV Titration 1243.5 Amount D5-0.45% NaCl with KCl 1000 20Meq/l 1,000 ml @ 125 mls/hr IV .Q8H [facility] Rx#: [id number] Ropivacaine 250 mg 193.5 Hydromorphone (Pf) 5 mg In Sodium Chloride 0.9% 200 ml @ Per Protocol EPIDURAL .Q0M [facility] Rx#: [id number] ceFAZolin 1,000 mg In 50 Sodium Chloride 0.9% 50 ml @ 100 mls/hr IVPB Q6H [facility] Rx#:[id number] Output: Urine 650 Other: Voiding Method Indwelling Catheter Indwelling Catheter - Labs CBC & Chem 7: 08/14/21 08:02 08/14/21 08:02 Labs: Abnormal Lab Results - Last 24 Hours (Table) 08/13/21 08/14/21 08/14/21 Range/Units 19:10 08:02 08:02 WBC 10.7 H (3.8-10.6) k/uL RBC 3.98 L (4.30-5.90) m/uL Hgb 12.0 L (13.0-17.5) gm/dL Hct 36.4 L (39.0-53.0) % Neutrophils # 7.8 H (1.3-7.7) k/uL Sodium 134 L (137-145) mmol/L BUN 5 L (9-20) mg/dL Glucose 122 H (74-99) mg/dL Calcium 8.2 L (8.4-10.2) mg/dL Urine Protein 1+ H (Negative) Urine Blood Moderate H (Negative) Ur Leukocyte Esterase Trace H (Negative) Urine RBC 40 H (0-5) /hpf Urine WBC 6 H (0-5) /hpf Urine Mucus Many H (None) /hpf
[2021-08-14] MEDS: SODIUM CHLORIDE 0.9% 1,000 ML IV SCH (13:47)
[2021-08-15] MEDS: SODIUM CHLORIDE 0.9% 1,000 ML IV SCH ×2 (00:26→17:47)
[2021-08-15] MEDS: IPRATROPIUM 0.5 MG/2.5 ML NEBU INHALATION PRN ×2 (08:04→20:14)
[2021-08-15] MEDS: METOPROLOL TARTRATE 50 MG TAB PO SCH ×2 (09:09→20:02)
[2021-08-15] MEDS: HEPARIN SODIUM,PORCINE/PF 5,000 UNIT/0.5 ML SYRINGE SQ SCH ×2 (09:09→17:56)
[2021-08-15] MEDS: FAMOTIDINE 20 MG/2 ML VIAL IV SCH ×2 (09:09→20:02)
[2021-08-15] MEDS: ALVIMOPAN 12 MG CAPSULE PO SCH ×2 (09:09→20:02)
[2021-08-15] MEDS: MULTIVITAMINS, THERA 1 EACH TAB PO SCH (09:09)
[2021-08-15 10:40] LABS: HCT 35.2 % (39.6-50.0); HGB 11.4 g/dL (13.0-17.0); MCH 29.3 pg (27.0-32.0); MCHC 32.4 g/dL (32.0-37.0); MCV 90.5 fL (80.0-97.0); Mean Platelet Volume 9.3 fL (9.5-12.2); NRBC Per 100 WBC 0 /100 WBCS (0.0-0.0); Platelet Count 285 X 10*3/uL (140-440); RBC 3.89 X 10*6/uL (4.40-5.60); RDW 13.5 % (11.5-14.5); WBC 10.91 X 10*3/uL (4.50-10.00)
[2021-08-15 10:51] LABS: African American GFR (CKD) 134.9 (60.0-200.0); Anion Gap 10.7 mmol/L (10.00-18.00); BUN/Creat Ratio 7.43 Ratio (12.00-20.00); Blood Urea Nitrogen 5.2 mg/dL (9.0-27.0); Carbon Dioxide 25.3 mmol/L (20.0-27.5); Non-African American GFR(CKD) 116.4 (60.0-200.0); Potassium 3.8 mmol/L (3.5-5.5)
[2021-08-15] MEDS: ALBUTEROL NEBULIZED 2.5 MG/3 ML INHALATION PRN ×2 (11:49→20:14)
--- NOTE | 2021-08-15 12:35 | P.PN ---
Subjective Progress Note Date: 08/15/21 CHIEF COMPLAINT: Diverticular stricture of sigmoid colon HISTORY OF PRESENT ILLNESS: Patient is postop day #4 status post Exploratory laparotomy, Lysis of extensive adhesions, Left colectomy with low anterior section, Takedown splenic flexure, Appendectomy, Omentectomy and Repair of incisional hernia. Patient lying in bed comfortably. He reports his pain is controlled. He denies any nausea or vomiting. Patient reports that he has been up and going to the bathroom. Tolerating clear liquid diet. Afebrile. WBC is 10.91 hemoglobin 11.4 Patient seen and examined with Dr. back PHYSICAL EXAM: VITAL SIGNS: Reviewed. GENERAL: Well-developed in no acute distress. HEENT: No sclera icterus. Extraocular movements grossly intact. Moist buccal mucosa. Head is atraumatic, normocephalic. ABDOMEN: Soft. Nondistended NEUROLOGIC: Alert and oriented. Cranial nerves II through XII grossly intact. ASSESSMENT: 1. Diverticular stricture of sigmoid colon, adhesions and incisional hernia status post Exploratory laparotomy, Lysis of extensive adhesions, Left colectomy with low anterior section, Takedown splenic flexure, Appendectomy, Omentectomy and Repair of incisional hernia PLAN: -Advance diet to full liquids -Continue supportive care -Anticipate discharge possibly tomorrow -Continue pain medication as needed -Continue antiemetics -Encouraged patient to ambulate -Encouraged incentive spirometer use -GI prophylaxis Pepcid and DVT prophylaxis subcu heparin Physician Parole Supervisor note has been reviewed by physician. Signing provider agrees with the documented findings, assessment, and plan of care. Objective - Vital Signs Vital signs: Vital Signs Temp 98.8 F 08/15/21 08:00 Pulse 90 08/15/21 11:59 Resp 16 08/15/21 11:59 BP 160/78 08/15/21 08:00 Pulse Ox 97 08/15/21 08:03 Intake & Output 08/14/21 08/15/21 08/15/21 18:59 06:59 18:59 Intake Total 900 Output Total 600 Balance -600 900 Intake: Intake, IV Titration 900 Amount Sodium Chloride 0.9% 1, 900 000 ml @ 75 mls/hr IV . [id number] [facility] Rx#:[id number] Output: Urine 600 Uretheral (Garner) 600 Other: Voiding Method Indwelling Catheter Toilet # Voids 3 - Labs CBC & Chem 7: 08/15/21 06:36 08/15/21 06:36 Labs: Abnormal Lab Results - Last 24 Hours (Table) 08/15/21 08/15/21 Range/Units 06:36 06:36 WBC 10.91 H (4.50-10.00) X 10*3/uL RBC 3.89 L (4.40-5.60) X 10*6/uL Hgb 11.4 L (13.0-17.0) g/dL Hct 35.2 L (39.6-50.0) % MPV 9.3 L (9.5-12.2) fL BUN 5.2 L (9.0-27.0) mg/dL BUN/Creatinine Ratio 7.43 L (12.00-20.00) Ratio
--- NOTE | 2021-08-15 14:09 | P.PN ---
Subjective Progress Note Date: 08/15/21 Patient is admitted for elective ulcer of colostomy. Patient had history of incisional hernia patient is in ICU for bowel perforation underwent colectomy in the past and colostomy after that. Patient is clinically doing well has an abdominal binder patient is burping didn't move his bowel at as gas. I'm unable to appreciate any bowel sounds because of the binder that's in place. Patient doesn't have any fever chills does have some leukocytosis denied any cough denied any shortness of breath. Patient does have history of hypertension and asthma which are fairly stable and controlled at this time. 08/13/2021 Patient does have bowel sounds in the 2 out of 4 quadrants still has an epidural in place. Patient is burping pain is well controlled. 08/14/2021 Patient had low-grade fever yesterday because of which year was obtained because of concerns of UTI considering significant sediment in the Garner catheter. Urine analysis is bit abnormal but not impressive for UTI, obtained a chest x- ray which showed a possible ileus and some pneumoperitoneum from his surgery. Patient also bit hyponatremic secondary to D5 half-normal he was receiving. Patient has leukocytosis which improved patient was started on Rocephin which will be continued also obtain blood cultures, so further is no clear evidence of infection. 08/15/2021 Patient is seen in follow-up today and has been afebrile for 24 hours. Patient is status post diverticular stricture of the sigmoid colon with adhesions and incisional hernia repair status post exploratory laparotomy with lysis of extensive adhesions, left colectomy with lower anterior resection and takedown splenic flexure along with appendectomy and omentectomy and repair of the incisional hernia. Patient continued on IV ceftriaxone and will continue. Urinalysis was negative and blood cultures remain negative. Patient is currently on room air and denies any shortness of breath or chest pain. WBC is 10.91 and hemoglobin is 11.4, other labs within normal limits. She was maintained on clear liquid diet being advanced to full liquids for surgery recommendations. Incentive spirometer at the bedside and encourage the patient to continue using at least 10 times every hour while awake. Patient does have bowel sounds noted and reports the passing gas. Encouraged increase activity as tolerated as well. Patient is tolerating diet and urinating with no difficulties and will discontinue IV fluids. Review of systems: Constitutional: Denied any fatigue denied any fever. Cardio vascular: denied any chest pain, palpitations Gastrointestinal denied any nausea vomiting Pulmonary: Denied any shortness of breath cough Neurologic denied any new focal deficits All inpatient medications were reviewed and appropriate changes in these medications as dictated in the interval history and assessment and plan. Active Medications Acetaminophen (Acetaminophen Tab 325 Mg Tab) 650 mg PO Q6HR PRN PRN Reason: Fever and/ or Pain Hydrocodone Bitart/Acetaminophen (Hydrocodone/Apap 5-325mg 1 Each Tab) 1 each PO Q4HR PRN PRN Reason: Pain Albuterol Sulfate (Albuterol Nebulized 2.5 Mg/3 Ml) 2.5 mg INHALATION RT-Q4H PRN PRN Reason: Shortness Of Breath Or Wheezing Last Admin: 08/15/21 11:49 Dose: 2.5 mg Documented by: Alvimopan (Alvimopan 12 Mg Capsule) 12 mg PO BID [facility] Stop: 08/18/21 09:01 Last Admin: 08/15/21 09:09 Dose: 12 mg Documented by: Benzocaine/Menthol (Benzocaine/Menthol Lozeng 1 Each Lozenge) 1 each MUCOUS MEM Q1HR PRN PRN Reason: Sore Throat Famotidine (Famotidine 20 Mg/2 Ml Vial) 20 mg IV BID [facility] Last Admin: 08/15/21 09:09 Dose: 20 mg Documented by: Formoterol Fumarate (Formoterol Fumarate 20 Mcg/2 Ml Nebu) 20 mcg INHALATION RT-BID PRN PRN Reason: Shortness Of Breath Heparin Sodium (Porcine) (Heparin Sodium,Porcine/Pf 5,000 Unit/0.5 Ml Syringe) 5,000 unit SQ Q8HR [facility] Last Admin: 08/15/21 09:09 Dose: 5,000 unit Documented by: Hydromorphone HCl (Hydromorphone 1 Mg/Ml 1 Ml Syringe) 1 mg IVP Q3HR PRN PRN Reason: Pain Ceftriaxone Sodium 2 gm/ (Sodium Chloride) 50 mls @ 100 mls/hr IVPB Q24HR [facility]; Protocol Last Admin: 08/15/21 09:10 Dose: 100 mls/hr Documented by: Sodium Chloride (Saline 0.9%) 1,000 mls @ 75 mls/hr IV .[id number] [facility] Last Admin: 08/15/21 00:26 Dose: Not Given Documented by: Ipratropium [place] (Ipratropium 0.5 Mg/2.5 Ml Nebu) 0.5 mg INHALATION RT-QID PRN PRN Reason: Shortness Of Breath Last Admin: 08/15/21 08:04 Dose: 0.5 mg Documented by: Metoclopramide HCl (Metoclopramide 5 Mg/Ml 2 Ml Vial) 10 mg IVP Q6HR PRN PRN Reason: Nausea and Vomiting Last Admin: 08/14/21 13:47 Dose: 10 mg Documented by: Metoprolol Tartrate (Metoprolol Tartrate 50 Mg Tab) 50 mg PO BID [facility] Last Admin: 08/15/21 09:09 Dose: 50 mg Documented by: Multivitamins (Multivitamins, Thera 1 Each Tab) 1 each PO DAILY [facility] Last Admin: 08/15/21 09:09 Dose: 1 each Documented by: Naloxone HCl (Naloxone 0.4 Mg/Ml 1 Ml Vial) 0.2 mg IV Q2M PRN PRN Reason: Opioid Reversal Ondansetron HCl (Ondansetron 4 Mg/2 Ml Vial) 4 mg IVP Q8HR PRN PRN Reason: Nausea And Vomiting Last Admin: 08/13/21 08:09 Dose: 4 mg Documented by: PHYSICAL EXAMINATION: GENERAL: The patient is alert and oriented x3, not in any acute distress. Well developed, well nourished. HEENT: Pupils are round and equally reacting to light. EOMI. No scleral icterus. No conjunctival pallor. Normocephalic, atraumatic. No pharyngeal erythema. No thyromegaly. CARDIOVASCULAR: S1 and S2 muffled PULMONARY: Diminished breath sounds bilaterally with some scattered rhonchi noted ABDOMEN: Soft, obese, nontender Abdominal binder in place, does have bowel sounds MUSCULOSKELETAL: No joint swelling or deformity. EXTREMITIES: No cyanosis, clubbing, or pedal edema. NEUROLOGICAL: Gross neurological examination did not reveal any focal deficits. SKIN: No rashes. Assessment: -Status post diverticular stricture of the sigmoid colon with adhesions, status post exploratory laparotomy with lysis of extensive adhesions, left colectomy with lower anterior resection and takedown of the splenic flexure along with appendectomy and omentectomy and repair of incisional hernia -Fever with Leukocytosis: Patient appears to have mild hematuria from Garner catheter otherwise, suspicion for UTI is low and urinalysis was negative and patient is afebrile -Pneumoperitoneum, expected postoperative change, no further intervention -Mild ileus which is also expected, further management as per general surgery -Reversal of colostomy, pain management as per primary service patient still has an epidural in place -Hypertension, currently well-controlled blood pressures on metoprolol -Asthma without any acute exacerbation -DVT prophylaxis: As per primary service -GI prophylaxis -Full code Plan: Recommend continue with current medications and management per surgical services. Patient is continued on IV ceftriaxone and most recent blood cultures remain negative. Urinalysis is negative. Patient is afebrile. Patient is tolerating clear liquids and being advanced to full liquids per surgical services and will discontinue IV fluids and recommend repeat labs in the morning. Patient to continue using incentive spirometer at least 10 times every hour while awake and increasing activity as tolerated. Patient will continue on IV ceftriaxone for now and will discharge patient on 3 days of Ceftin on discharge. Urinalysis was negative. Will continue to follow with surgery and further recommendations to follow based on the clinical course of the patient. Possible discharge in 24 hours per surgical services. Thank you for this consultation. The impression and plan of care has been dictated by Sushma Zurita, nurse practitioner as directed. MD Rio I have performed a history and examination and MDM of this patient, discussed the same with the dictator, and agree with the dictator's assessment and plan as written ,documented as a scribe. Based on total visit time, I have performed more than 50% of the visit. Total number of minutes spent on this visit, 15 minutes . Any additional findings or plans will be noted. Objective - Vital Signs Vital signs: Vital Signs Temp 98.4 F 08/15/21 01:33 Pulse 90 08/15/21 08:15 Resp 16 08/15/21 08:15 BP 122/70 08/15/21 01:33 Pulse Ox 97 08/15/21 08:03 Intake & Output 08/14/21 08/15/21 08/15/21 18:59 06:59 18:59 Intake Total 900 Output Total 600 Balance -600 900 Intake: Intake, IV Titration 900 Amount Sodium Chloride 0.9% 1, 900 000 ml @ 75 mls/hr IV . [id number] [facility] Rx#:[id number] Output: Urine 600 Uretheral (Garner) 600 Other: Voiding Method Indwelling Catheter # Voids 3 - Labs CBC & Chem 7: 08/15/21 06:36 08/15/21 06:36
[2021-08-16] MEDS: HEPARIN SODIUM,PORCINE/PF 5,000 UNIT/0.5 ML SYRINGE SQ SCH ×2 (00:07→08:05)
[2021-08-16 05:56] LABS: Basophils % (A) 0 %; Eosinophils # (A) 0.5 k/uL (0-0.7); Eosinophils % (A) 5 %; HCT 37.2 % (39.0-53.0); HGB 12.3 gm/dL (13.0-17.5); Lymphocytes # (A) 2.4 k/uL (1.0-4.8); Lymphocytes % (A) 27 %; MCHC 33.2 g/dL (31.0-37.0); MCV 90.2 fL (80.0-100.0); Mean Platelet Volume 6.5; Monocytes # (A) 0.5 k/uL (0-1.0); Monocytes % (A) 6 %; Neutrophils # (A) 5.3 k/uL (1.3-7.7); Neutrophils % (A) 60 %; Platelet Count 351 k/uL (150-450); RBC 4.12 m/uL (4.30-5.90); RDW 13.9 % (11.5-15.5); WBC 8.8 k/uL (3.8-10.6)
[2021-08-16 06:07] LABS: African American GFR (CKD) >90 (>60 ml/min/1.73 sqM); Anion Gap 7 mmol/L; Blood Urea Nitrogen 8 mg/dL (9-20); Calcium 8.9 mg/dL (8.4-10.2); Carbon Dioxide 27 mmol/L (22-30); Chloride 105 mmol/L (98-107); Glucose 90 mg/dL (74-99); Non-African American GFR(CKD) >90 (>60 ml/min/1.73 sqM); Potassium 3.5 mmol/L (3.5-5.1); Sodium 139 mmol/L (137-145)
[2021-08-16] MEDS: MULTIVITAMINS, THERA 1 EACH TAB PO SCH (08:06)
[2021-08-16] MEDS: METOPROLOL TARTRATE 50 MG TAB PO SCH (08:06)
[2021-08-16] MEDS: ALVIMOPAN 12 MG CAPSULE PO SCH (08:06)
[2021-08-16] MEDS: FAMOTIDINE 20 MG/2 ML VIAL IV SCH (08:06)
[2021-08-16] MEDS: ALBUTEROL NEBULIZED 2.5 MG/3 ML INHALATION PRN ×2 (08:15→11:22)
--- NOTE | 2021-08-16 12:28 | P.DS ---
Providers Date of admission: 08/11/21 15:20 Expected date of discharge: 08/16/21 Attending physician: Rodrigo Pena Consults: 08/11/21 20:07 Consult Physician Routine Consulting Provider: Poppy Cruz Consult Reason/Comments: Medical management Do you want consulting provider notified?: Yes Primary care physician: Michelle Moore Hospital Course: Discharge diagnosis 1. Diverticular stricture of sigmoid colon, adhesions and incisional hernia status post Exploratory laparotomy, Lysis of extensive adhesions, Left colectomy with low anterior section, Takedown splenic flexure, Appendectomy, Omentectomy and Repair of incisional hernia Hospital course This a 40-year-old male with history of colon obstruction with diverticular stricture. Patient has a previous loop colostomy in the left upper quadrant. Patient is status post Exploratory laparotomy, Lysis of extensive adhesions, Left colectomy with low anterior section, Takedown splenic flexure, Appendectomy, Omentectomy and Repair of incisional hernia. Patient tolerated surgery well. His pain is controlled. He is up and ambulating. He is having flatus and small bowel movements. Tolerating diet. Afebrile. Incision site clean dry and intact. And is stable for discharge. Please refer to chart for any further details. Physician Kosher Dietary Service Manager note has been reviewed by physician. Signing provider agrees with the documented findings, assessment, and plan of care. Patient Condition at Discharge: Stable Plan - Discharge Summary Discharge Rx Participant: No New Discharge Prescriptions: New HYDROcodone/APAP 5-325MG [[place] 5-325] 1 tab PO Q6HR PRN 3 Days #12 tab PRN Reason: Pain Continue Umeclidinium Brm/Vilanterol Tr [Anoro Ellipta 62.5-25 Mcg INH] 1 puff INHALATION DAILY PRN PRN Reason: Shortness Of Breath Metoprolol Tartrate [Lopressor] 50 mg PO BID #60 tab Albuterol Sulfate [Ventolin HFA] 2 puff INHALATION Q6H Multivitamins, Thera [Multivitamin (formulary)] 1 tab PO DAILY No Action Ferrous Sulfate [Feosol] 325 mg PO DAILY Discharge Medication List Umeclidinium Brm/Vilanterol Tr [Anoro Ellipta 62.5-25 Mcg INH] 1 puff INHALATION DAILY PRN 04/19/21 [History] Metoprolol Tartrate [Lopressor] 50 mg PO BID #60 tab 04/28/21 [Rx] Albuterol Sulfate [Ventolin HFA] 2 puff INHALATION Q6H 08/09/21 [History] Ferrous Sulfate [Feosol] 325 mg PO DAILY 08/09/21 [History] Multivitamins, Thera [Multivitamin (formulary)] 1 tab PO DAILY 08/09/21 [History] HYDROcodone/APAP 5-325MG [[place] 5-325] 1 tab PO Q6HR PRN 3 Days #12 tab 08/16/21 [Rx] Follow up Appointment(s)/Referral(s): Rodrigo Pena MD [STAFF PHYSICIAN] - 1 Week Activity/Diet/Wound Care/Special Instructions: No driving while taking [place] No lifting over 10 pounds You may shower. No soaking or tub baths for 2 weeks Very light activity until you are reevaluated at your follow up appointment with your surgeon Hold on taking iron pill until seen by surgeon Advance diet as tolerated Discharge Disposition: HOME SELF-CARE
--- NOTE | 2021-08-16 12:40 | P.PN ---
Subjective Progress Note Date: 08/16/21 Patient is admitted for elective ulcer of colostomy. Patient had history of incisional hernia patient is in ICU for bowel perforation underwent colectomy in the past and colostomy after that. Patient is clinically doing well has an abdominal binder patient is burping didn't move his bowel at as gas. I'm unable to appreciate any bowel sounds because of the binder that's in place. Patient doesn't have any fever chills does have some leukocytosis denied any cough denied any shortness of breath. Patient does have history of hypertension and asthma which are fairly stable and controlled at this time. 08/13/2021 Patient does have bowel sounds in the 2 out of 4 quadrants still has an epidural in place. Patient is burping pain is well controlled. 08/14/2021 Patient had low-grade fever yesterday because of which year was obtained because of concerns of UTI considering significant sediment in the Garner catheter. Urine analysis is bit abnormal but not impressive for UTI, obtained a chest x- ray which showed a possible ileus and some pneumoperitoneum from his surgery. Patient also bit hyponatremic secondary to D5 half-normal he was receiving. Patient has leukocytosis which improved patient was started on Rocephin which will be continued also obtain blood cultures, so further is no clear evidence of infection. 08/15/2021 Patient is seen in follow-up today and has been afebrile for 24 hours. Patient is status post diverticular stricture of the sigmoid colon with adhesions and incisional hernia repair status post exploratory laparotomy with lysis of extensive adhesions, left colectomy with lower anterior resection and takedown splenic flexure along with appendectomy and omentectomy and repair of the incisional hernia. Patient continued on IV ceftriaxone and will continue. Urinalysis was negative and blood cultures remain negative. Patient is currently on room air and denies any shortness of breath or chest pain. WBC is 10.91 and hemoglobin is 11.4, other labs within normal limits. She was maintained on clear liquid diet being advanced to full liquids for surgery recommendations. Incentive spirometer at the bedside and encourage the patient to continue using at least 10 times every hour while awake. Patient does have bowel sounds noted and reports the passing gas. Encouraged increase activity as tolerated as well. Patient is tolerating diet and urinating with no difficulties and will discontinue IV fluids. 08/16/2021 Patient is seen and evaluated in follow-up today and has been walking the halls multiple times. Patient reports to having an episode of vomiting shortly after eating advanced diet dinner last night and has subsided. Patient did tolerate breakfast and ate about 50-75% of it with no reports of nausea or vomiting noted. Patient is passing small amount of gas but no bowel movement as of yet. WBC has normalized at 8.8, hemoglobin is stable at 12.3, sodium is 139, potassium 3.5, BUN 8, creatinine 0.81 him a calcium is 8.9. Patient is planning on discharge from surgery later this afternoon. Encouraged incentive spirometer use at least 10 times every hour while awake even while at home. Encouraged increased activity as tolerated. Review of systems: Constitutional: Denied any fatigue denied any fever. Cardio vascular: denied any chest pain, palpitations Gastrointestinal denied any nausea vomiting, reports passing small amount of gas, no reports of bowel movement as of yet Pulmonary: Denied any shortness of breath cough Neurologic denied any new focal deficits All inpatient medications were reviewed and appropriate changes in these medications as dictated in the interval history and assessment and plan. PHYSICAL EXAMINATION: GENERAL: The patient is alert and oriented x3, obese, Well developed, well caitlin shed. HEENT: Pupils are round and equally reacting to light. EOMI. No scleral icterus. No conjunctival pallor. Normocephalic, atraumatic. No pharyngeal erythema. No thyromegaly. CARDIOVASCULAR: S1 and S2 muffled PULMONARY: Diminished breath sounds bilaterally with no wheezing or rhonchi noted ABDOMEN: Soft, obese, nontender Abdominal binder in place, does have bowel sounds, surgical site appears dry and intact with no surrounding redness or swelling noted. Surgical dressing being changed to the previous ostomy site on the left. MUSCULOSKELETAL: No joint swelling or deformity. EXTREMITIES: No cyanosis, clubbing, or pedal edema. NEUROLOGICAL: Gross neurological examination did not reveal any focal deficits. SKIN: No rashes. Assessment: -Status post diverticular stricture of the sigmoid colon with adhesions, status post exploratory laparotomy with lysis of extensive adhesions, left colectomy with lower anterior resection and takedown of the splenic flexure along with appendectomy and omentectomy and repair of incisional hernia -Fever with Leukocytosis: Resolved -Pneumoperitoneum, expected postoperative change, no further intervention, improved -Mild ileus which is also expected, further management as per general surgery -Reversal of colostomy on the left -Hypertension, currently well-controlled blood pressures on metoprolol -Asthma without any acute exacerbation -DVT prophylaxis: As per primary service -GI prophylaxis -Full code Plan: Recommend continue with current medications and management per surgical services. Patient is continued on full liquid diet and tolerating. Patient reports to having an episode of vomiting shortly after dinner last night and that was his first full liquid meal after clear liquids for a few days. Patient is afebrile. Patient is tolerating full liquids today with no reports of nausea or vomiting noted. Patient reports the passing gas with no bowel movement as of yet. Patient to continue using incentive spirometer at least 10 times every hour while awake and increasing activity as tolerated. Urinalysis was negative. Patient will continue on Ceftin 500 mg twice daily for the next 3 days to complete the course. Will continue to follow with surgery and further recommendations to follow based on the clinical course of the patient. Patient is being discharged later today per surgical services. Thank you for this cons ultation. The impression and plan of care has been dictated by nurse ralph Segura as directed. MD Rio I have performed a history and examination and MDM of this patient, discussed the same with the dictator, and agree with the dictator's assessment and plan as written ,documented as a scribe. Based on total visit time, I have performed more than 50% of the visit. Total number of minutes spent on this visit, 10 minutes . Any additional findings or plans will be noted. Objective - Vital Signs Vital signs: Vital Signs Temp 99.0 F 08/16/21 07:27 Pulse 90 08/16/21 08:28 Resp 16 08/16/21 08:28 BP 147/83 08/16/21 07:27 Pulse Ox 95 08/16/21 08:15 Intake & Output 08/15/21 08/16/21 08/16/21 18:59 06:59 18:59 Intake Total 1490 Output Total 300 Balance 1490 -300 Intake: Intake, IV Titration 950 Amount Sodium Chloride 0.9% 1, 900 000 ml @ 75 mls/hr IV . [id number] [facility] Rx#:[id number] cefTRIAXone 2 gm In 50 Sodium Chloride 0.9% 50 ml @ 100 mls/hr IVPB Q24HR [facility] Rx#:[id number] Oral 540 Output: Emesis 300 Other: Voiding Method Toilet Toilet # Voids 1 3 - Labs CBC & Chem 7: 08/16/21 05:16 08/16/21 05:16 Labs: Abnormal Lab Results - Last 24 Hours (Table) 08/15/21 08/15/21 08/16/21 Range/Units 06:36 06:36 05:16 WBC 10.91 H (4.50-10.00) X 10*3/uL RBC 3.89 L 4.12 L (4.40-5.60) X 10*6/uL Hgb 11.4 L 12.3 L (13.0-17.0) g/dL Hct 35.2 L 37.2 L (39.6-50.0) % MPV 9.3 L (9.5-12.2) fL BUN 5.2 L (9.0-27.0) mg/dL BUN/Creatinine Ratio 7.43 L (12.00-20.00) Ratio 08/16/21 Range/Units 05:16 WBC (4.50-10.00) X 10*3/uL RBC (4.40-5.60) X 10*6/uL Hgb (13.0-17.0) g/dL Hct (39.6-50.0) % MPV (9.5-12.2) fL BUN 8 L (9.0-27.0) mg/dL BUN/Creatinine Ratio (12.00-20.00) Ratio Microbiology - Last 24 Hours (Table) 08/14/21 10:39 Blood Culture - Preliminary Blood No Growth after 24 hours 08/14/21 10:35 Blood Culture - Preliminary Blood No Growth after 24 hours
[2021-08-16 13:32] VITALS: BP 130/86; PULSE 76; RESP 18; TEMP 98.9
== END 2021-08-16 16:19 | disposition home or self-care (01) | DRG 330 ==
LOC: 2ORMAIN 15:20 → 4SSUR 20:56
PROVIDERS: ADMIT Surgery; ATTEND Surgery
PROC: 0DTJ0ZZ Resection of Appendix, Open Approach (ICD-10-PCS; principal; 2021-08-11 11:10)
PROC: 0DNW0ZZ Release Peritoneum, Open Approach (ICD-10-PCS; principal; 2021-08-11 11:10)
PROC: 0DTG0ZZ Resection of Left Large Intestine, Open Approach (ICD-10-PCS; principal; 2021-08-11 11:10)
PROC: 0DBU0ZZ Excision of Omentum, Open Approach (ICD-10-PCS; principal; 2021-08-11 11:10)
PROC: 0WQF0ZZ Repair Abdominal Wall, Open Approach (ICD-10-PCS; principal; 2021-08-11 11:10)
DX: K57.30 Diverticulosis of large intestine without perforation or abscess without bleeding (principal); E87.1 Hypo-osmolality and hyponatremia; K56.699 Other intestinal obstruction unspecified as to partial versus complete obstruction; K94.09 Other complications of colostomy; D72.829 Elevated white blood cell count, unspecified; I10 Essential (primary) hypertension; J45.909 Unspecified asthma, uncomplicated; K43.2 Incisional hernia without obstruction or gangrene; K66.0 Peritoneal adhesions (postprocedural) (postinfection); Z79.899 Other long term (current) drug therapy; Z87.891 Personal history of nicotine dependence; Z86.16 Personal history of COVID-19; Z88.2 Allergy status to sulfonamides; Z98.890 Other specified postprocedural states
CPT/HCPCS: 71046; 80048; 80051; 81001; 85025; 85027; 86850; 86900; 86901; 87040; 88302; 88307; 94640; 94760

== ENCOUNTER 2021-08-17 21:32 | Emergency (ER) | payer MEDICAID ==
--- NOTE | 2021-08-17 22:51 | ED ---
Nausea/Vomiting/Diarrhea HPI - General Chief complaint: Nausea/Vomiting/Diarrhea Stated complaint: Post-op nausea Time Seen by Provider: 08/17/21 22:12 Source: patient Mode of arrival: ambulatory Limitations: no limitations - History of Present Illness Initial comments: This patient is a 40-year-old man who presents to be evaluated for abdominal symptoms. The patient did have a colostomy reversal August 13, here performed by Dr. Luana Melendez. The patient was discharged yesterday. He states that today his abdomen just does not feel right. Further questioning reveals that there is some bloating or distention. He is reluctant to call it pain. Patient states in fact that he has not tried taking any of the hydrocodone he was prescribed after surgery, as the symptoms are just not that severe. He is also had some nausea most of the day with one episode of vomiting. No hematemesis. He states that he has passed some gas per rectum. No bowel movement. Patient denies fever or chills though in triage she was found have low-grade fever here. MD complaint: nausea -: days(s) Associated Abdominal Pain: No Location: diffuse Severity: mild Severity scale (1-10): 1 Quality: other (Bloating) Consistency: constant Improves with: none Worsens with: none Associated Symptoms: denies other symptoms - Related Data Home Medications Medication Instructions Recorded Confirmed Albuterol Sulfate [Ventolin HFA] 2 puff INHALATION RT-Q6H PRN 08/09/21 08/17/21 Multivitamins, Thera [Multivitamin 1 tab PO DAILY 08/09/21 08/17/21 (formulary)] Ondansetron [Zofran] 4 - 8 mg PO Q8HR PRN 08/17/21 08/17/21 Previous Rx's Medication Instructions Recorded Metoprolol Tartrate [Lopressor] 50 mg PO BID #60 tab 04/28/21 Cefuroxime Axetil [Ceftin] 500 mg PO BID 3 Days #6 tab 08/16/21 HYDROcodone/APAP 5-325MG [[place] 1 tab PO Q6HR PRN 3 Days #12 tab 08/16/21 5-325] Pantoprazole [Protonix] 40 mg PO BID #60 tab 08/16/21 Allergies Allergy/AdvReac Type Severity Reaction Status Date / Time Sulfa (Sulfonamide Allergy Unknown Verified 03/10/22 22:57 Antibiotics) Childhood Review of Systems ROS Statement: Those systems with pertinent positive or pertinent negative responses have been documented in the HPI. ROS Other: All systems not noted in ROS Statement are negative. Constitutional: Denies: fever, chills Respiratory: Denies: cough, dyspnea Cardiovascular: Denies: chest pain, palpitations, edema Gastrointestinal: Reports: as per HPI, abdominal pain, nausea, vomiting. Denies: diarrhea, constipation, melena, hematochezia Genitourinary: Denies: dysuria, hematuria, testicular pain, testicular mass Musculoskeletal: Denies: back pain Skin: Denies: rash Neurological: Denies: headache, weakness, numbness Past Medical History Past Medical History: Asthma, Hypertension Additional Past Medical History / Comment(s): Diverticulitis. Hx +ve Covid 06/29/21, with fever and congestion. History of Any Multi-Drug Resistant Organisms: None Reported Past Surgical History: Bowel Resection Additional Past Surgical History / Comment(s): Colostomy. colostomy reversal Past Anesthesia/Blood Transfusion Reactions: No Reported Reaction Additional Past Anesthesia/Blood Transfusion Reaction / Comment(s): No blood t ransfusion hx. Past Psychological History: Depression Smoking Status: Former smoker Past Alcohol Use History: None Reported Past Drug Use History: None Reported - Past Family History Mother Additional Family Medical History / Comment(s): Diverticulitis, head injury. Father Family Medical History: No Reported History General Exam Limitations: no limitations General appearance: alert, in no apparent distress Head exam: Present: atraumatic, normocephalic Eye exam: Present: normal appearance. Absent: scleral icterus, conjunctival injection ENT exam: Present: normal oropharynx Neck exam: Present: normal inspection Respiratory exam: Present: normal lung sounds bilaterally. Absent: respiratory distress, wheezes, rales, rhonchi, stridor Cardiovascular Exam: Present: regular rate, normal rhythm, normal heart sounds. Absent: systolic murmur, diastolic murmur, rubs, gallop GI/Abdominal exam: Present: soft, distended, diminished bowel sounds, other (Patient's surgical incisions are clean dry and intact. There is a surgical drain on the left sided incision. There is no abnormal erythema or warmth. No purulent drainage.). Absent: tenderness, guarding, rebound, rigid, mass, pulsatile mass, hernia Extremities exam: Present: normal inspection, normal capillary refill. Absent: pedal edema, calf tenderness Back exam: Present: normal inspection. Absent: CVA tenderness (R), CVA tenderness (L) Neurological exam: Present: alert Skin exam: Present: warm, dry, intact, normal color. Absent: rash Course Vital Signs 08/17/21 08/17/21 22:02 23:43 Temperature 100.4 F H 99.5 F Pulse Rate 81 Respiratory 20 Rate Blood Pressure 127/86 O2 Sat by Pulse 97 Oximetry Medical Decision Making - Lab Data Result diagrams: 08/17/21 23:05 08/17/21 23:05 Lab Results 08/17/21 08/17/21 08/17/21 Range/Units 23:05 23:05 23:05 WBC 12.3 H (3.8-10.6) k/uL RBC 4.48 (4.30-5.90) m/uL Hgb 12.9 L (13.0-17.5) gm/dL Hct 39.0 (39.0-53.0) % MCV 87.2 (80.0-100.0) fL MCH 28.9 (25.0-35.0) pg MCHC 33.1 (31.0-37.0) g/dL RDW 13.6 (11.5-15.5) % Plt Count 413 (150-450) k/uL MPV 6.3 Neutrophils % 71 % Lymphocytes % 18 % Monocytes % 5 % Eosinophils % 4 % Basophils % 0 % Neutrophils # 8.7 H (1.3-7.7) k/uL Lymphocytes # 2.2 (1.0-4.8) k/uL Monocytes # 0.6 (0-1.0) k/uL Eosinophils # 0.5 (0-0.7) k/uL Basophils # 0.0 (0-0.2) k/uL Sodium 138 (137-145) mmol/L Potassium 3.4 L (3.5-5.1) mmol/L Chloride 100 (98-107) mmol/L Carbon Dioxide 27 (22-30) mmol/L Anion Gap 11 mmol/L BUN 8 L (9-20) mg/dL Creatinine 0.85 (0.66-1.25) mg/dL Est GFR (CKD-EPI)AfAm >90 (>60 ml/min/1.73 sqM) Est GFR (CKD-EPI)NonAf >90 (>60 ml/min/1.73 sqM) Glucose 101 H (74-99) mg/dL Calcium 9.1 (8.4-10.2) mg/dL Total Bilirubin 0.5 (0.2-1.3) mg/dL AST 53 (17-59) U/L ALT 61 H (4-49) U/L Alkaline Phosphatase 98 (38-126) U/L C-Reactive Protein 3.1 H (<1.0) mg/dL Total Protein 6.8 (6.3-8.2) g/dL Albumin 3.8 (3.5-5.0) g/dL Urine Color Urine Appearance (Clear) Urine pH (5.0-8.0) Ur Specific [place] (1.001-1.035) Urine Protein (Negative) Urine Glucose (UA) (Negative) Urine Ketones (Negative) Urine Blood (Negative) Urine Nitrite (Negative) Urine Bilirubin (Negative) Urine Urobilinogen (<2.0) mg/dL Ur Leukocyte Esterase (Negative) Urine RBC (0-5) /hpf Urine WBC (0-5) /hpf Urine Mucus (None) /hpf Coronavirus (PCR) Not Detected (Not Detectd) 08/17/21 Range/Units 23:50 WBC (3.8-10.6) k/uL RBC (4.30-5.90) m/uL Hgb (13.0-17.5) gm/dL Hct (39.0-53.0) % MCV (80.0-100.0) fL MCH (25.0-35.0) pg MCHC (31.0-37.0) g/dL RDW (11.5-15.5) % Plt Count (150-450) k/uL MPV Neutrophils % % Lymphocytes % % Monocytes % % Eosinophils % % Basophils % % Neutrophils # (1.3-7.7) k/uL Lymphocytes # (1.0-4.8) k/uL Monocytes # (0-1.0) k/uL Eosinophils # (0-0.7) k/uL Basophils # (0-0.2) k/uL Sodium (137-145) mmol/L Potassium (3.5-5.1) mmol/L Chloride (98-107) mmol/L Carbon Dioxide (22-30) mmol/L Anion Gap mmol/L BUN (9-20) mg/dL Creatinine (0.66-1.25) mg/dL Est GFR (CKD-EPI)AfAm (>60 ml/min/1.73 sqM) Est GFR (CKD-EPI)NonAf (>60 ml/min/1.73 sqM) Glucose (74-99) mg/dL Calcium (8.4-10.2) mg/dL Total Bilirubin (0.2-1.3) mg/dL AST (17-59) U/L ALT (4-49) U/L Alkaline Phosphatase (38-126) U/L C-Reactive Protein (<1.0) mg/dL Total Protein (6.3-8.2) g/dL Albumin (3.5-5.0) g/dL Urine Color Yellow Urine Appearance Cloudy (Clear) Urine pH 6.0 (5.0-8.0) Ur Specific [place] 1.028 (1.001-1.035) Urine Protein 1+ H (Negative) Urine Glucose (UA) Negative (Negative) Urine Ketones 2+ H (Negative) Urine Blood Negative (Negative) Urine Nitrite Negative (Negative) Urine Bilirubin Negative (Negative) Urine Urobilinogen <2.0 (<2.0) mg/dL Ur Leukocyte Esterase Negative (Negative) Urine RBC 3 (0-5) /hpf Urine WBC 2 (0-5) /hpf Urine Mucus Many H (None) /hpf Coronavirus (PCR) (Not Detectd) Disposition Clinical Impression: Postoperative ileus Disposition: HOME SELF-CARE Condition: Good Instructions (If sedation given, give patient instructions): Ileus (ED) Is patient prescribed a controlled substance at d/c from ED?: No Referrals: Oscar Martinez MD [Primary Care Provider] - 1-2 days Rodrigo Pena MD [STAFF PHYSICIAN] - 1-2 days
--- NOTE | 2021-08-17 23:13 | XR ---
EXAMINATION TYPE: XR KUB DATE OF EXAM: 08/17/2021 COMPARISON: 12/30/2019 HISTORY: Abdominal pain TECHNIQUE: 3 views upright FINDINGS: There is no sign of intestinal obstruction. There are skin irineo over the midline abdomen . There is no evidence of a mass. Lung bases show no pulmonary consolidation. There is mild pleural r eaction left lateral lung base. I see no definite free air. IMPRESSION: Nonacute abdomen. No adverse change. Minimal pleural reaction left lung base is a change compared to old exam.
[2021-08-17 23:25] LABS: Basophils % (A) 0 %; Eosinophils # (A) 0.5 k/uL (0-0.7); Eosinophils % (A) 4 %; HGB 12.9 gm/dL (13.0-17.5); Lymphocytes # (A) 2.2 k/uL (1.0-4.8); Lymphocytes % (A) 18 %; MCH 28.9 pg (25.0-35.0); MCHC 33.1 g/dL (31.0-37.0); MCV 87.2 fL (80.0-100.0); Mean Platelet Volume 6.3; Monocytes # (A) 0.6 k/uL (0-1.0); Monocytes % (A) 5 %; Neutrophils # (A) 8.7 k/uL (1.3-7.7); Neutrophils % (A) 71 %; Platelet Count 413 k/uL (150-450); RBC 4.48 m/uL (4.30-5.90); RDW 13.6 % (11.5-15.5); WBC 12.3 k/uL (3.8-10.6)
[2021-08-17 23:42] LABS: ALT 61 U/L (4-49); AST 53 U/L (17-59); African American GFR (CKD) >90 (>60 ml/min/1.73 sqM); Albumin 3.8 g/dL (3.5-5.0); Alkaline Phosphatase 98 U/L (38-126); Anion Gap 11 mmol/L; Blood Urea Nitrogen 8 mg/dL (9-20); C Reactive Protein 3.1 mg/dL (<1.0); Calcium 9.1 mg/dL (8.4-10.2); Carbon Dioxide 27 mmol/L (22-30); Chloride 100 mmol/L (98-107); Glucose 101 mg/dL (74-99); Non-African American GFR(CKD) >90 (>60 ml/min/1.73 sqM); Potassium 3.4 mmol/L (3.5-5.1); Sodium 138 mmol/L (137-145); Total Bilirubin 0.5 mg/dL (0.2-1.3); Total Protein 6.8 g/dL (6.3-8.2)
[2021-08-18 00:35] LABS: Appearance,Urine Cloudy (Clear); Bilirubin,Urine Negative (Negative); Blood,Urine Negative (Negative); Color,Urine Yellow; Glucose,Urine (UA) Negative (Negative); Ketones,Urine 2+ (Negative); Leukocyte Esterase,Urine Negative (Negative); Mucus,Urine Many /hpf; Nitrite,Urine Negative (Negative); Protein,Urine 1+ (Negative); RBC,Urine 3 /hpf (0-5); Specific Gravity,Urine 1.028 (1.001-1.035); Urobilinogen,Urine <2.0 mg/dL (<2.0); WBC,Urine 2 /hpf (0-5)
[2021-08-18 01:54] VITALS: BP 131/87; PULSE 84; RESP 18; TEMP 98.7
== END 2021-08-18 01:34 | disposition home or self-care (01) ==
LOC: EC 21:32
DX: K91.89 Other postprocedural complications and disorders of digestive system (principal); K56.7 Ileus, unspecified; I10 Essential (primary) hypertension; J45.909 Unspecified asthma, uncomplicated; F32.A Depression, unspecified; Z87.891 Personal history of nicotine dependence; Z79.51 Long term (current) use of inhaled steroids; Z79.899 Other long term (current) drug therapy
CPT/HCPCS: 36415; 74018; 80053; 81001; 85025; 86140; 87040; 87635; 99284

== ENCOUNTER 2022-04-02 05:58 | Observation (INO) | payer MEDICAID ==
[~2022-04-02 05:58] MED LIST changes: -metroNIDAZOLE-NS PMX 500 MG in SALINE 1 100ML.BAG IVPB PRN
[2022-04-02] MEDS ORDERED: ONDANSETRON 4 MG/2 ML VIAL IVP ONE (06:08)
[2022-04-02] MEDS ORDERED: HYDROmorphone 0.5 MG/0.5 ML SYRINGE IVP PRN ×2 (06:08→09:34)
[2022-04-02] MEDS ORDERED: LIDOCAINE 1% (10MG/ML) FOR IV START INTRADERMA ONE (06:50)
[2022-04-02] MEDS: LACTATED RINGERS 1,000 ML IV SCH (06:50)
[2022-04-02] MEDS ORDERED: FAMOTIDINE 20 MG/2 ML VIAL IV ONE (07:04)
[2022-04-02] MEDS ORDERED: DEXAMETHASONE SOD PHOSPHATE 4 MG/ML 1 ML VIAL IV ONE (07:05)
[2022-04-02 07:09] LABS: Basophils # (A) 0.1 k/uL (0-0.2); Basophils % (A) 1 %; Eosinophils # (A) 0.2 k/uL (0-0.7); Eosinophils % (A) 2 %; HCT 41.1 % (39.0-53.0); HGB 14.1 gm/dL (13.0-17.5); Lymphocytes # (A) 3.2 k/uL (1.0-4.8); Lymphocytes % (A) 32 %; MCH 29.5 pg (25.0-35.0); MCHC 34.3 g/dL (31.0-37.0); MCV 86.1 fL (80.0-100.0); Mean Platelet Volume 6.9; Monocytes # (A) 0.7 k/uL (0-1.0); Monocytes % (A) 7 %; Neutrophils # (A) 5.7 k/uL (1.3-7.7); Neutrophils % (A) 57 %; Platelet Count 258 k/uL (150-450); RBC 4.78 m/uL (4.30-5.90); RDW 12.6 % (11.5-15.5)
[2022-04-02 07:16] LABS: African American GFR (CKD) >90 (>60 ml/min/1.73 sqM); Anion Gap 8 mmol/L; Blood Urea Nitrogen 18 mg/dL (9-20); Calcium 8.4 mg/dL (8.4-10.2); Carbon Dioxide 27 mmol/L (22-30); Chloride 106 mmol/L (98-107); Glucose 115 mg/dL (74-99); Non-African American GFR(CKD) >90 (>60 ml/min/1.73 sqM); Sodium 141 mmol/L (137-145)
[2022-04-02] MEDS ORDERED: MIDAZOLAM 2 MG/2 ML VIAL IV ONE (07:20)
[2022-04-02] MEDS ORDERED: fentaNYL (PF) 50 MCG/ML 2 ML AMP IV ONE (07:20)
[2022-04-02] MEDS ORDERED: PHENYLEPHRINE-0.9% NACL SYG 1,000 MCG/10 ML SYRINGE ONE (07:42)
[2022-04-02] MEDS ORDERED: ROCURONIUM 10 MG/ML (5 ML VIAL) IV ONE (07:42)
[2022-04-02] MEDS ORDERED: SUCCINYLCHOLINE CHLORIDE 200 MG/10 ML VIAL IV ONE (07:42)
[2022-04-02] MEDS ORDERED: HYDROmorphone (PF) 1 MG/ML ONE (07:42)
[2022-04-02] MEDS ORDERED: GLYCOPYRROLATE 0.2 MG/ML 2 ML VIAL ONE (07:42)
[2022-04-02] MEDS ORDERED: fentaNYL (PF) 50 MCG/ML 2 ML AMP ONE (07:42)
[2022-04-02] MEDS ORDERED: MIDAZOLAM 2 MG/2 ML VIAL ONE (07:42)
[2022-04-02] MEDS ORDERED: LIDOCAINE 2% INJ 20 MG/ML (2 ML VIAL) ONE (07:42)
[2022-04-02] MEDS ORDERED: KETAMINE 10 MG/ML 20 ML VIAL ONE (07:42)
[2022-04-02] MEDS ORDERED: KETOROLAC 15 MG/ML 1 ML VIAL ONE (07:42)
[2022-04-02] MEDS ORDERED: PROPOFOL 10 MG/ML 20 ML VIAL IV ONE (07:42)
[2022-04-02] MEDS ORDERED: NEOSTIGMINE 1 MG/ML 10 ML VIAL ONE (07:42)
[2022-04-02] MEDS ORDERED: SODIUM CHLORIDE 0.9% (PF) 10 ML VIAL ONE (07:42)
[2022-04-02] MEDS ORDERED: ROPIVACAINE 5 MG/ML 30 ML VIAL ONE (07:42)
--- NOTE | 2022-04-02 08:26 | P.ANPRN ---
Procedure Note - Anesthesia - Nerve Block Performed Bilateral Erector Spinae Single Time Out Performed: Yes Date of Procedure: 04/02/22 Procedure Start Time: Procedure Stop Time: Location of Patient: PreOp Indication: Requested by Surgeon Specifically requested for management of pain by DrEldon: Rodrigo Pena Sedation Type: Sedate with meaningful contact maintained Preparation: Sterile Prep Position: Prone Needle Types: Pajunk Needle Gauge: 21 Ultrasound used to visualize needle placement: Yes Ultrasound used to observe medication spread: Yes Injectate: 0.5% Ropivacaine (see comment for volume) (15 ml + 15 ml NS per side) Blood Aspirated: No Pain Paresthesia on Injection Noted: No Resistance on Injection: Normal Image Stored and Saved: Yes Events: Uneventful and Well Tolerated
[2022-04-02] MEDS ORDERED: LACTATED RINGERS 1,000 ML IV ONE ×2 (08:33→09:34)
[2022-04-02] MEDS ORDERED: BUPIVACAINE (PF) 0.5% 30 ML VIAL SQ ONE (09:00)
--- NOTE | 2022-04-02 09:31 | P.OP ---
Date of Procedure: 04/02/22 Preoperative Diagnosis: Incisional hernia Postoperative Diagnosis: Incisional hernia Procedure(s) Performed: Repair of incisional hernia with mesh Transversus abdominis plane block Anesthesia: MALCOLM Surgeon: Rodrigo Pena Estimated Blood Loss (ml): 50 Pathology: other (Hernia sac) Condition: stable Disposition: PACU Operative Findings: Large incisional hernia located along the midline scar Incisional hernia located on old colostomy site Description of Procedure: The patient's placed on the operating table in the supine position. He received general endotracheal tube anesthesia. His abdomen was prepped and draped usual fashion. The patient a previous midline scar which ran from the sternum to the pubic area along the scar there is evidence of incisional hernia located near the periumbilical area and off laterally at the old colostomy site. The scar was incised and excised in removed. The subcutaneous tissue divided. The fascia was opened in the midline. A transversus abdominis plane block was performed using 1% local Xylocaine in 4 quadrants. The incisional hernias located along the midline scar. The adhesions were lysed. The colostomy site was visualized. The colostomy site hernia was closed using [id number] Ethibond suture. The abdominal wall was then reapproximated using #1-0 Ethibond suture. A piece of Prolene mesh was placed over top of the repair it was cut to an appropriate size. The mesh originally measured 10 x 13". A GUERA drains placed over top the mesh and brought through separate stab incision in the right upper quadrant. Sandra's fascia close [place]. Skin was closed irineo.
--- NOTE | 2022-04-02 09:33 | P.GSHP ---
History of Present Illness H&P Date: 04/02/22 Chief Complaint: Incisional hernia Is a 41-year-old male who has. History of perforated diverticulitis with creation of colostomy and subsequent reversal colostomy. Patient has developed an incisional hernia along his midline scar as well as one on his old colostomy site. He presents today for open repair of incisional hernia. Past Medical History Past Medical History: Asthma, Hypertension Additional Past Medical History / Comment(s): hx. bowel obstruction & diverticulitis 2020. Hx +ve Covid 06/29/21 History of Any Multi-Drug Resistant Organisms: None Reported Past Surgical History: Bowel Resection Additional Past Surgical History / Comment(s): Colostomy 2020, colostomy reversal-August 2021 Past Anesthesia/Blood Transfusion Reactions: No Reported Reaction Additional Past Anesthesia/Blood Transfusion Reaction / Comment(s): No blood transfusion hx. Smoking Status: Former smoker - Past Family History Mother Additional Family Medical History / Comment(s): Diverticulitis, head injury. Father Family Medical History: No Reported History Medications and Allergies Home Medications Medication Instructions Recorded Confirmed Type Metoprolol Tartrate [Lopressor] 50 mg PO BID #60 tab 04/28/21 03/30/22 Rx Albuterol Sulfate [Ventolin HFA] 2 puff INHALATION RT-Q6H PRN 08/09/21 03/30/22 History Allergies Allergy/AdvReac Type Severity Reaction Status Date / Time Sulfa (Sulfonamide Allergy Unknown Verified 04/02/22 06:23 Antibiotics) Childhood Surgical - Exam Vital Signs Temp Pulse Resp BP Pulse Ox 97.6 F 76 16 146/79 97 04/02/22 06:50 04/02/22 06:50 04/02/22 06:50 04/02/22 06:50 04/02/22 06:50 - General well developed, well nourished, no distress - Eyes PERRL - ENT normal pinna - Neck no masses - Respiratory normal expansion - Cardiovascular Rhythm: regular - Abdomen Incisional hernia located along her midline scar and at the old colostomy site Abdomen: soft, non tender Results - Labs 04/02/22 06:50 04/02/22 06:50 Abnormal Lab Results - Last 24 Hours (Table) 04/02/22 Range/Units 06:50 Glucose 115 H (74-99) mg/dL Diabetes panel 04/02/22 Range/Units 06:50 Sodium 141 (137-145) mmol/L Potassium 4.0 (3.5-5.1) mmol/L Chloride 106 (98-107) mmol/L Carbon Dioxide 27 (22-30) mmol/L BUN 18 (9-20) mg/dL Creatinine 0.84 (0.66-1.25) mg/dL Glucose 115 H (74-99) mg/dL Calcium 8.4 (8.4-10.2) mg/dL Calcium panel 04/02/22 Range/Units 06:50 Calcium 8.4 (8.4-10.2) mg/dL Pituitary panel 04/02/22 Range/Units 06:50 Sodium 141 (137-145) mmol/L Potassium 4.0 (3.5-5.1) mmol/L Chloride 106 (98-107) mmol/L Carbon Dioxide 27 (22-30) mmol/L BUN 18 (9-20) mg/dL Creatinine 0.84 (0.66-1.25) mg/dL Glucose 115 H (74-99) mg/dL Calcium 8.4 (8.4-10.2) mg/dL Adrenal panel 04/02/22 Range/Units 06:50 Sodium 141 (137-145) mmol/L Potassium 4.0 (3.5-5.1) mmol/L Chloride 106 (98-107) mmol/L Carbon Dioxide 27 (22-30) mmol/L BUN 18 (9-20) mg/dL Creatinine 0.84 (0.66-1.25) mg/dL Glucose 115 H (74-99) mg/dL Calcium 8.4 (8.4-10.2) mg/dL Assessment and Plan Assessment: Incisional hernia. We'll perform open repair.
[2022-04-02] MEDS ORDERED: ACETAMINOPHEN TAB 325 MG TAB PO PRN (09:34)
[2022-04-02] MEDS ORDERED: ONDANSETRON 4 MG/2 ML VIAL IVP PRN (09:34)
[2022-04-02] MEDS ORDERED: NALOXONE 0.4 MG/ML 1 ML VIAL IV PRN (09:34)
[2022-04-02] MEDS ORDERED: HYDROcodone/APAP 5-325MG 1 EACH TAB PO PRN ×2 (09:34)
[2022-04-02] MEDS: KETOROLAC 15 MG/ML 1 ML VIAL IVP SCH ×2 (11:27→17:06)
[2022-04-02] MEDS ORDERED: ALBUTEROL NEBULIZED 2.5 MG/3 ML INHALATION SCH (20:00)
[2022-04-02] MEDS ORDERED: ALBUTEROL NEBULIZED 2.5 MG/3 ML INHALATION PRN (20:37)
[2022-04-02] MEDS: METOPROLOL TARTRATE 50 MG TAB PO SCH (21:23)
[2022-04-02] MEDS: DOCUSATE 100 MG CAP PO SCH (21:23)
[2022-04-03] MEDS: KETOROLAC 15 MG/ML 1 ML VIAL IVP SCH ×3 (00:44→11:19)
[2022-04-03] MEDS: DOCUSATE 100 MG CAP PO SCH (07:58)
[2022-04-03] MEDS: METOPROLOL TARTRATE 50 MG TAB PO SCH (07:58)
[2022-04-03] MEDS: LACTATED RINGERS 1,000 ML IV SCH (07:59)
[2022-04-03] MEDS: ALBUTEROL NEBULIZED 2.5 MG/3 ML INHALATION SCH ×2 (08:13→12:13)
[2022-04-03] MEDS ORDERED: ENOXAPARIN 40 MG/0.4 ML SYRINGE SQ SCH (09:00)
--- NOTE | 2022-04-03 13:28 | P.DS ---
Providers Date of admission: 04/02/22 21:41 Expected date of discharge: 04/03/22 Attending physician: Rodrigo Pena Consults: 04/02/22 09:34 Consult Physician Routine Consulting Provider: Poppy Cruz Consult Reason/Comments: med manage Do you want consulting provider notified?: Yes [facility] care physician: [facility] Hospital Course: Discharge diagnosis Large incisional hernia located along the midline scar Incisional hernia located on old colostomy site Hospital course This is a 41-year-old male with a known history of perforated diverticulitis with colostomy and subsequent reversal of colostomy. He developed incisional hernia along his midline scar as well as a hernia at the colostomy site. Patient is status post repair of incisional hernia the midline with mesh and hernia at colostomy site. Patient tolerated surgery well. His pain is controlled. He is tolerating diet. He has been up and ambulate. He is afebrile. He is stable for discharge. Please refer to chart for any further details. Physician Ruching Machine Operator note has been reviewed by physician. Signing provider agrees with the documented findings, assessment, and plan of care. Patient Condition at Discharge: Stable Plan - Discharge Summary Discharge Rx Participant: Yes New Discharge Prescriptions: New HYDROcodone/APAP 5-325MG [[place] 5-325] 1 tab PO Q6HR PRN 3 Days #12 tab PRN Reason: Pain Docusate [Colace] 100 mg PO BID #30 capsule Continue Metoprolol Tartrate [Lopressor] 50 mg PO BID #60 tab Albuterol Sulfate [Ventolin HFA] 2 puff INHALATION RT-Q6H PRN PRN Reason: Shortness Of Breath Discharge Medication List Metoprolol Tartrate [Lopressor] 50 mg PO BID #60 tab 04/28/21 [Rx] Albuterol Sulfate [Ventolin HFA] 2 puff INHALATION RT-Q6H PRN 08/09/21 [History] Docusate [Colace] 100 mg PO BID #30 capsule 04/03/22 [Rx] HYDROcodone/APAP 5-325MG [[place] 5-325] 1 tab PO Q6HR PRN 3 Days #12 tab 04/03/22 [Rx] Follow up Appointment(s)/Referral(s): Rodrigo Pena MD [STAFF PHYSICIAN] - 04/10/22 1:45 pm Patient Instructions/Handouts: Shine-Up Drain Care (DC), Open Herniorrhaphy (DC) Activity/Diet/Wound Care/Special Instructions: Continue a full liquid diet for a couple of days and then advance to soft diet until seen by surgeon No driving while taking [place] No lifting over 10 pounds Shower daily. No soaking or tub baths for 2 weeks Very light activity until you are reevaluated at your follow up appointment with your surgeon Keep a log of GUERA drain output and bring with you to your follow-up appointment Milk/strip drains 2-3 times a day Discharge Disposition: HOME SELF-CARE
[2022-04-03 15:18] VITALS: BP 142/82; PULSE 98; RESP 18; TEMP 98.3
== END 2022-04-03 15:50 | disposition home or self-care (01) ==
LOC: OR 05:58 → 4SSUR 10:44 → OR 21:41
PROVIDERS: ADMIT Surgery; ATTEND Surgery
DX: K43.2 Incisional hernia without obstruction or gangrene (principal); I10 Essential (primary) hypertension; J45.909 Unspecified asthma, uncomplicated; Z86.16 Personal history of COVID-19; Z87.891 Personal history of nicotine dependence; Z79.899 Other long term (current) drug therapy; Z88.2 Allergy status to sulfonamides
CPT/HCPCS: 96376; 96372; 96374; 94640 ×3; 64999; 80048; 85025; 88302; 49561; 49568; 64488; G0378 ×2; C1781; J2250; J0330; J1100; J2710; J0690; J2405; J1650; J3010; J1170 ×2; J2795; J1885 ×2; J2370; J2704; J1644; J2001

== ENCOUNTER → 2022-10-18 | Outpatient (CLI) | payer MEDICAID ==
--- NOTE | 2022-10-18 15:46 | USB ---
Reason for Exam: Clinical finding. Technique: Method: Whole Breast Handheld. Patient Position: Supine. Findings: The whole breast of the right breast, the axilla of the right breast and the retroareolar of the right breast were scanned. A complete US of all four quadrants of the breast , axilla, and retro-areolar region were reviewed. In the subareolar region, there is an irregular hypoechoic area measuring 1.7 x 1.4 x 0.8 cm. Suspect mild gynecomastia. This should be confirmed with diagnostic mammogram. The contralateral side was imaged for comparison purposes and lacks this finding. No other solid or cystic lesion. Overall Assessment: Incomplete: need additional imaging evaluation, BI-RAD 0 Management: Diagnostic Mammogram of both breasts. Electronically signed and approved by: Wilfrido Woods M.D. Radiologist
--- NOTE | 2022-10-18 19:13 | MM ---
Reason for Exam: Clinical finding. Baseline mammogram. Indicated Problems: Pain of the right side (Focal) for 2 Month(s). Patient History: Paternal aunt had breast cancer at or over age 50. Paternal grandmother had breast cancer at or over age 50. Prior Study Comparison: Patient's first Mammogram. Tissue Density: There are scattered fibroglandular densities. Findings: Analyzed By CAD. There is a prominent 9 mm intramammary lymph node however aspect of the central right breast posterior depth. Given the prominent size, a request. Three-month follow-up is recommended. There is flame-shaped subareolar density on the right compatible with gynecomastia. Benign microcalcifications posteriorly and inferiorly on the right. Otherwise, no suspicious microcalcification or other discrete abnormality is seen. Overall Assessment: Probably benign, BI-RAD 3 Management: Diagnostic Mammogram of the right breast in 3 months. Findings in the subareolar right breast compatible with benign gynecomastia. Further clinical correlation as to possible causes. 3 month precautionary diagnostic mammogram follow-up right breast for a prominent 9 mm intramammary lymph node. Electronically signed and approved by: Wilfrido Woods M.D. Radiologist
== END | disposition home or self-care (01) ==
LOC: RADUSWWP 14:56
PROVIDERS: ATTEND Family Medicine
DX: N64.4 Mastodynia (principal); Z80.3 Family history of malignant neoplasm of breast
CPT/HCPCS: 77062; 77066